=== PATIENT | female | born 1975 | race Caucasian/White ===

== ENCOUNTER → 2017-08-22 10:11 | Outpatient (CLI) | payer MEDICAID, SELFPAY ==
[2017-08-22 11:24] LABS: Hemoglobin A1c 5.7 % (4.2-6.3)
[2017-08-22 11:28] LABS: Erythrocyte Sedimentation Rate 24 mm/hr (0-20)
[2017-08-22 11:41] LABS: Rheumatoid Factor < 10.0 IU/mL (<15); Thyroid Stim Hormone (TSH) 4.13 uIU/mL (0.358-3.74); Vitamin B12 297 pg/mL (211-911)
[2017-08-23 16:10] LABS: Albumin, Ur 7.5 % (.); Alpha-1-Globulin, Ur 6.1 % (.); Alpha-2-Globulins, Ur 10.8 % (.); Beta Globulin, Ur 39.6 % (.); Cytoplasmic Ab (C-ANCA) <1:20 titer (Neg:<1:20); M-Spike, Ur % Not Observed % (Not Observed); SJOGREN'S Anti-SS-A test < 0.2 AI (0.0-0.9); SJOGREN'S Anti-SS-B test < 0.2 AI (0.0-0.9); Total Protein, Ur 13.7 mg/dL (Not Estab.)
[2017-08-24 09:47] LABS: Perinuclear Ab (P-ANCA) <1:20 titer (Neg:<1:20)
[2017-08-24 09:48] LABS: ANTINUCLEAR ANTIBODIES DIRECT Negative (Negative)
[2017-08-30 16:10] LABS: Albumin 3.3 g/dL (2.9-4.4); Alpha-1-Globulins 0.3 g/dL (0.0-0.4); Gamma Globulin 1.3 g/dL (0.4-1.8); Immunoglobulin A 347 mg/dL (87-352); Immunoglobulin G 1233 mg/dL (700-1600); Immunoglobulin M 119 mg/dL (26-217)
== END ==
PROVIDERS: Family Provider Family Medicine; PCP Family Medicine; Visit Provider Psychiatry & Neurology Neurology
DX: G62.9 Polyneuropathy, unspecified (principal)
CPT/HCPCS: 36415; 82607; 82784; 83036; 84165; 84166; 84443; 85652; 86038; 86235; 86256; 86334; 86335; 86431

== ENCOUNTER → 2017-09-04 10:33 | Outpatient (CLI) | payer MEDICAID, SELFPAY ==
--- NOTE | 2017-09-04 10:37 | MRI_ITS ---
STUDY: MRI BRAIN WITHOUT CONTRAST REASON FOR EXAM: Female, 42 years old. Increasing headache frequency and severity. Patient has history of migraine headaches. TECHNIQUE: Standardized multiplanar fat and water weighted pulse sequences were obtained. COMPARISON: CT of the head dated September 14, 2015. FINDINGS: Normal size of the ventricles and extra-axial spaces for the patient's age. Normal white matter tracts of the supratentorial brain. Normal T2* images of the brain without demonstrated susceptibility artifact. There is no demonstrated hemosiderin stain. There is no evidence for recent intracranial ischemia or other cause of cytotoxic edema on diffusion weighted imaging (DWI). Normal bilateral basal ganglia. Normal thalami. There is no extra-axial fluid accumulation. Normal flow voids within the major intracranial circulation suggesting patency by spin echo criteria. Normal sella turcica, pituitary gland, infundibular stalk, optic chiasm and hypothalamus. Normal tectal plate and pineal gland. Normal midbrain, christos and medulla. Normal cerebellum. Normal basal cisterns. Normal bilateral temporal bones. Normal bilateral internal auditory canals. No demonstrated orbital abnormality, within the constraints of a routine brain study. Normal visualized paranasal sinuses. Normal calvarium and skull base. Normal visualized soft tissue structures. Normal visualized upper cervical spine. MRI/Brain without Contrast IMPRESSION: Normal unenhanced MRI of the brain. Electronically Signed: Catie Rao MD at 12:57 EDT , Service support ,
[2017-09-04 12:31] LABS: Absolute Lymphocyte Count 2.74 X10^3/ul (0.83-4.51); Absolute Neutrophil Count 5.4 X10^3/uL (2.0-7.7); Basophil# 0.03 X10^3/uL; Basophil% 0.3 % (0-1); Eosinophil# 0.32 X10^3/uL; Eosinophils% 3.5 % (0-5); Hematocrit 39.6 % (37-47); Hemoglobin 12.7 g/dl (12.0-15.0); Lymphocyte # 2.74 X10^3/ul (4.0); Lymphocyte % 30.2 % (19-41); Mean Corp Hgb Conc 32.1 g/gl (32-36); Mean Corpuscular Hgb 30.2 pg (27.0-32.0); Mean Corpuscular Volume 94.1 fL (81-99); Mean Platelet Vol. 9.3 fl (6.2-12.0); Monocyte# 0.55 X10^3/uL; Monocyte% 6.1 % (0-10); Neutrophil # 5.41 X10^3/uL (2.7-7.7); Neutrophil % 59.8 % (47-70); Platelet Count 223 K/mm3 (150-450); RBC Distribution Width CV 13.4 % (11.6-14.6); RBC Distribution Width SD 45.8 fl (35.1-43.9); Red Blood Count 4.21 M/mm3 (4.2-5.4); White Blood Count 9.1 K/mm3 (4.4-11.0)
[2017-09-04 12:32] LABS: POSITIVE COUNT NO; POSITIVE DIFFERENTIAL NO; POSITIVE MORPHOLOGY NO
== END ==
PROVIDERS: Family Provider Family Medicine; PCP Family Medicine; Visit Provider Psychiatry & Neurology Neurology
DX: R51 Headache (principal); L40.0 Psoriasis vulgaris; Z79.899 Other long term (current) drug therapy
CPT/HCPCS: 36415; 70551; 85025

== ENCOUNTER → 2017-11-07 06:59 | Outpatient (CLI) | payer MEDICAID, SELFPAY ==
--- NOTE | 2017-11-07 10:54 | NEURO ---
NCS and/or EMG Patient Report Ordering Doctor: Chao Riley DATE OF SERVICE: 11/07/17 This is a bilateral upper extremity nerve conduction study and a right upper extremity EMG performed on this 42-year-old female with discolorations involving her hands as well as abnormal sensations in her hands involving all fingers worse on the right with no trigger. Bilateral upper extremity sensory and motor nerve conduction studies performed. There is mild prolongation of the right median motor distal latency with mild reduction of amplitude but preservation of conduction velocity. The median and ulnar F-wave latencies are symmetrically preserved. The median sensory amplitude is also mildly reduced on the right. The left median motor and sensory, and bilateral ulnar motor and sensory and radial sensory responses are normal. Right upper extremity needle electromyography is performed. Muscles evaluated included the first dorsal interosseous, abductor pollicis brevis, brachioradialis, biceps, triceps and deltoid muscles. All muscles demonstrated normal insertional activity with absence of pathologic spontaneous activity. Motor unit potential recruitment pattern and amplitude was normal in all muscles tested. Impression abnormal electrophysiologic study consistent with mild median neuropathy at the right wrist. This may not be clinically significant however, correlation is suggested.
== END ==
PROVIDERS: Family Provider Physician Assistant; PCP Physician Assistant; Visit Provider Psychiatry & Neurology Neurology
DX: R20.0 Anesthesia of skin (principal); R20.2 Paresthesia of skin; G62.9 Polyneuropathy, unspecified
CPT/HCPCS: 95886; 95912

== ENCOUNTER 2017-12-30 21:38 | Emergency (ER) | payer MEDICAID, SELFPAY ==
[2017-12-30 21:39] VITALS: BP 129/61; PULSE 68; RESP 14; TEMP 36.9; O2SAT 96; BMI 47.5
[2017-12-30] MEDS: DiphenhydrAMINE 50 MG/ML Syringe 25 MG IV (23:25)
[2017-12-30] MEDS: proCHLORPERazine 10 MG/2 ML Vial IV (23:25)
[2017-12-30] MEDS: MethylPREDNISolone 125 MG/2 ML Vial IV (23:25)
[2017-12-30] MEDS: 0.9% Normal Saline 1,000 ML 999 ML IV (23:25)
--- NOTE | 2017-12-30 23:54 | ED.VISSUMM ---
- ER Visit Summary Date of Service: 12/30/17 Chief Complaint: Headache History of Present Illness: The patient is a 42 F presenting for evaluation secondary to headache. Patient reports that she has had a migraine headache over the course last 4 days. She reports that it is consistent with prior headaches but has been lasting somewhat longer. She describes it as a waxing and waning throbbing type pain that is bitemporal and is worse with light and sounds. Patient denies any vomiting but does endorse some nausea. She denies any recent head injuries, fevers, neck stiffness, rashes. She denies any numbness or weakness. Patient is on amitriptyline and Topamax which do not seem to be preventing these are helping. Physical Examination: Vital signs: Within normal limits General: Well-nourished well-developed no acute distress Head: Normocephalic atraumatic, no temporal artery tenderness or vesicular rash noted. No sinus tenderness to percussion. Eyes: PERRLA, EOMI. Direct funduscopy shows no evidence of hemorrhage or papilledema. Neck: Supple, no lymphadenopathy, no JVD no meningismus. Negative Brudzinski, Kernig, jolt, and heel strike Cardiovascular: Heart regular rate and rhythm no murmurs Respiratory: Lung sounds clear to auscultation bilaterally no respiratory distress Abdomen: Soft, nontender Extremities: Nontender, no edema Skin: Normal color, no rash, no evidence of petechia Neuro: Alert and oriented ?4, cranial nerves II through XII intact, normal strength, sensation Test Results: None indicated Emergency Department Course and Treatment: Patient presented for evaluation secondary to headache. Patient was administered Compazine and Benadryl had repeat evaluation improvement at 2353. Patient wishes to go home and try and sleep it off at this point. Patient will follow up with primary care as needed. Disposition: Discharge Impression: 1. Migraine headache This note was generated with Step[employer] dictation software. It may contain incorrect words, spelling, and punctuation that were not noted in review of the chart prior to signing ED Disposition - Plan for ED Patient: Disposition: Home or Assisted Living Chief Complaint: Headache Diagnosis: Migraine Instructions: ED Headache Migraine Referrals: Raymundo Lovell PA [Primary Care Provider] - 5-7 Days
[2017-12-31 00:26] VITALS: BP 128/60; PULSE 78; RESP 16; O2SAT 98
== END 2017-12-31 00:28 | disposition home or self-care (01) ==
PROVIDERS: Emergency Provider Emergency Medicine; Family Provider Physician Assistant; PCP Physician Assistant
DX: G43.909 Migraine, unspecified, not intractable, without status migrainosus (principal); Z98.84 Bariatric surgery status
CPT/HCPCS: 96361; 96374; 96375; 99283; J7030; A4216

== ENCOUNTER → 2018-01-29 07:54 | Outpatient (CLI) | payer MEDICAID, SELFPAY ==
--- NOTE | 2018-01-29 10:31 | NEURO_ITS ---
NCS and/or EMG Patient Report Ordering Doctor: Chao Riley DATE OF SERVICE: 01/29/18 This is a bilateral lower extremity nerve conduction study and a right lower extremity EMG performed on this 42-year-old female with pain in her feet bilaterally described as pain in the balls of her feet, which is up to her mid calf and constant, intermittently and idiosyncratically she does have severe pain. She is healthy otherwise without diabetes or alcohol consumption however she does have a history of migraine for which she takes Cymbalta and Topamax. She states that the Cymbalta does attenuate her foot pain to some extent. Bilateral lower extremity sensory and motor nerve conduction studies are performed. The bilateral sural sensory responses are normal. The common peroneal motor and tibial motor distal latencies and conduction velocities are preserved however there is decreased common peroneal amplitude on the left side. Tibial H reflexes are normal. Right lower extremity needle electromyography is performed. Muscles evaluated included the extensor digitorum brevis, abductor halitosis, medial gastrocnemius , anterior tibialis, vastus medialis and vastus lateralis muscles. All muscles demonstrated normal insertional activity with absence of pathologic spontaneous activity. Motor unit potential recruitment pattern and amplitude was normal in all muscles tested. Impression: This is an essentially normal electrophysical X study of the bilateral lower extremities however symptoms are consistent with small fiber neuropathy which may not be evident on this testing modality.
== END ==
PROVIDERS: Family Provider Physician Assistant; PCP Physician Assistant; Visit Provider Psychiatry & Neurology Neurology
DX: G62.9 Polyneuropathy, unspecified (principal); R20.0 Anesthesia of skin; R20.2 Paresthesia of skin
CPT/HCPCS: 95886; 95910

== ENCOUNTER 2024-10-07 09:55 | Emergency (ER) | payer MEDICAID, SELFPAY ==
[2024-10-07 09:56] VITALS: BP 92/43; PULSE 122; RESP 18; TEMP 36.7; O2SAT 100; BMI 27.5
--- NOTE | 2024-10-07 10:16 | EX.ED.DYSGE1 ---
HPI History of Present Illness Chief Complaint: General Illness Informant: patient Narrative Narrative: 49-year-old female states she had a procedure to repair a perforated septum done couple weeks ago at an ear nose throat outside of this area in [place]. Since then she has been feeling miserable. She feels like there is a very large object in her septum not just a small piece of silicone which is what they put in, she feels like her eyes are watering acid and they burn, her ears feel plugged like she went up in altitude and she is having trouble hearing out of them, the right side is worse than the left and they are achy, she feels like her mouth is dry, she is having nasal pain now because she has developed sore crusty sores mostly in the right side of her nose that feels like a staph infection she has had in the past, and she is getting sinus headaches off and on. She denies any bleeding, she is on Eliquis. In the last 3 to 4 days she has been having burning dysuria and occasional small amounts of hematuria, some frequency and urgency. Feels like she has a UTI. Some bladder pain but no nausea, vomiting. No back pain. No fevers or chills. No syncope or other systemic symptoms. She has not called her ENT about the symptoms. [facility] Medical History (Updated 10/07/24 @ 11:[address] Gene Peterson MD) Neuropathy Migraines Pulmonary embolus Afib Home Medications ?Medication ?Instructions ?Recorded ?Last Taken ?Type hydroxyzine pamoate 25 mg capsule 25 mg PO TID PRN PRN Anxiety 10/20/16 12/01/16 History topiramate 100 mg tablet 150 mg PO DAILY 10/20/16 12/09/16 History omeprazole 20 mg capsule,delayed 20 mg PO DAILY 12/08/16 12/10/16 History release prochlorperazine maleate 10 mg 10 mg PO TID PRN PRN Nausea 12/08/16 12/04/16 History tablet (Compazine) acetaminophen 500 mg tablet 2 tab PO Q8H PRN Pain #1 TAB 12/11/16 Unknown Rx ibuprofen 200 mg tablet 2 - 3 mg (0.01 - 0.015 x 200 mg) 12/11/16 Unknown Rx PO Q6H PRN Pain #1 TAB oxycodone 5 mg tablet 5 mg PO Q6H PRN PRN Severe Pain 12/11/16 Unknown Rx () ##12 apixaban 5 mg tablet (Eliquis) 5 mg PO BID 12/18/16 Unknown History duloxetine 60 mg capsule,delayed 60 mg PO DAILY 12/18/16 Unknown History release clindamycin HCl 150 mg capsule 300 mg (2 x 150 mg) PO 4X/DAY #80 07/16/17 Unknown Rx caps cefdinir 300 mg capsule 300 mg PO BID #14 caps 10/07/24 Unknown Rx mupirocin 2 % topical ointment 1 applic topical BID PRN skin 10/07/24 Unknown Rx infection #15 grams Allergy/AdvReac Type Severity Reaction Status Date / Time fluoxetine HCl (From Prozac) Allergy Other Verified 10/07/24 10:02 tree nut Allergy Anaphylaxis Verified 10/07/24 10:02 acetaminophen (From Vicodin) AdvReac Other Verified 10/07/24 10:02 butalbital (From Fioricet) AdvReac Nausea Verified 10/07/24 10:02 caffeine (From Fioricet) AdvReac Nausea Verified 10/07/24 10:02 hydrocodone bitartrate (From AdvReac Other Verified 10/07/24 10:02 Vicodin) latex AdvReac Rash Verified 10/07/24 10:02 onion AdvReac Other Verified 10/07/24 10:02 Surgical History (Updated 10/07/24 @ 10:[address] Gene Peterson MD) H/O gastric bypass Social History Smoking Status: Former smoker ROS ROS ED Constitutional Constitutional ED: Denies chills or fever(s) Eyes Eyes: Denies change in vision or diplopia ENT ENT ED: Reports as per HPI, ear pain bilateral, nose pain and sinus pressure; Denies nasal discharge, rhinorrhea or sore throat Cardiovascular Cardiovascular: Denies chest pain or palpitations Respiratory/Chest Respiratory/Chest: Denies cough or dyspnea Gastrointestinal Gastrointestinal: Reports abdominal pain; Denies diarrhea, nausea or vomiting Genitourinary Genitourinary ED: Reports dysuria, hematuria and urinary frequency Musculoskeletal Musculoskeletal: Denies back pain or neck pain Integumentary Denies abscess or rash Neurologic Neurologic: Denies headache(s), paresthesias or weakness Psychiatric Psychiatric: Denies suicidal thoughts EXAM Physical Exam Const Vital Signs: 10/07/24 09:56 10/07/24 11:41 10/07/24 11:42 Temperature 98.1 F 98.1 F Temperature Source Oral Pulse Rate 122 H 77 Respiratory Rate 18 16 Blood Pressure 92/43 L 120/57 L 120/57 L Blood Pressure Mean 59 78 78 Pulse Ox 100 100 100 Oxygen Delivery Method Room Air Room Air Positive well nourished and well developed Constitutional Narrative: Well-appearing General Appearance ED: well developed and NAD HEENT Reports moist mucous membranes HEENT Narrative: Probable effusion bilateral TMs, no perforation, slightly erythematous/injected right TM. EAC normal bilaterally. No periauricular lymphadenopathy. I do see a white silicone foreign body in the septum of the nose, she has some crusty yellow dried discharge around the's of the right naris. There is no active discharge. Nasal turbinates seem edematous, so exam is very limited and is also limited by pain and withdrawal by the patient. No significant sinus tenderness. No dysphonia. Posterior pharynx is normal. No thrush. normocephalic and atraumatic Eyes PERRL and EOMs intact bilaterally Neck full ROM, no lymphadenopathy and supple Resp normal respiratory effort GI non-distended GI Narrative: Mild suprapubic tenderness no guarding or rebound Auscultation: normoactive bowel sounds Palpation: soft Back/Spine no CVA tenderness General Back: other FROM Extremity normal to inspection General Extremety ED: Negative for edema, pulses abnormal or tenderness General Extremity: Negative for edema or pulses abnormal Neuro oriented x3, CN's II-XII intact bilaterally, no sensory deficits noted and gait normal Sensorium / Orientation: awake and alert Motor Exam: strength 5/5 throughout Psych Mood & Affect: anxious Skin no rashes or lesions noted and no wounds MDM MDM MDM Narrative Medical decision making narrative: This patient is very well-appearing. She probably has bilateral middle ear effusions, she may have an early right otitis media, and she may have what appears to be a superficial staph infection around the right naris which I think can be treated topically with mupirocin. Her urine is positive for infection, in order to cover her ENT infection and urine, I am going to put her on cefdinir. I am advising her to follow-up with her front office director who did her surgery/procedure as soon as possible since she just had a procedure. Of note, her initial vital signs were noted to be 92/43 and a pulse of 122. Patient looks very well, and so I had staff repeat her vital signs several times, and both times her pulse was in the 70s and blood pressure 120/57. I do not think she is septic. Lab Data Attestation: I reviewed the patient's lab results. Labs: Laboratory Results - last 24 hr 10/07/24 10:39 Urine Color Yellow Urine Clarity Sl. Cloudy Urine pH 5.0 Ur Specific Russell 1.020 Urine Protein 500 H Urine Glucose (UA) Normal Urine Ketones 5 H Urine Occult Blood 250 H Urine Nitrite Positive H Urine Bilirubin 3 H Urine Urobilinogen 1 H Ur Leukocyte Esterase 500 H Urine RBC 10-25 SEEN Urine WBC 25-50 SEEN Ur Squamous Epith Cells 0 SEEN Calcium Oxalate Crystal 1+ Urine Bacteria 2+ Hyaline Casts 0-5 SEEN Urine Mucus 1+ Discharge Plan Triage Chief Complaint: General Illness ED Provider: Gene Peterson Dx/Rx/DC Orders Clinical Impression: Acute otitis media, right, Staphylococcus infection of nose, Acute hemorrhagic cystitis Instructions: UTIs Prescriptions: New mupirocin 2 % ointment 1 applic topical BID PRN (Reason: skin infection) Qty: 15 0RF cefdinir 300 mg capsule 300 mg PO BID Qty: 14 0RF No Action topiramate 100 MG tablet 150 mg PO DAILY Patient Comments: MIGRAINES hydroxyzine pamoate 25 MG capsule 25 mg PO TID PRN PRN (Reason: Anxiety) Patient Comments: ITCHING prochlorperazine maleate [Compazine] 10 MG tablet 10 mg PO TID PRN PRN (Reason: Nausea) Patient Comments: pt states she takes for nausea or migranes omeprazole 20 MG capsule 20 mg PO DAILY Patient Comments: ACID REFLUX ibuprofen 200 MG tablet 2 - 3 mg PO Q6H PRN (Reason: Pain) Qty: 1 0RF Patient Comments: pain Rx Instructions: up to 1200 mg/day acetaminophen 500 MG tablet 2 tab PO Q8H PRN (Reason: Pain) Qty: 1 0RF oxycodone 5 MG tablet 5 mg PO Q6H PRN PRN (Reason: Severe Pain (6-10/10)) Qty: 12 0RF Patient Comments: pain duloxetine 60 MG capsule 60 mg PO DAILY apixaban [Eliquis] 5 MG tablet 5 mg PO BID Patient Comments: BLOOD THINNER clindamycin HCl 150 MG capsule 300 mg PO 4X/DAY Qty: 80 0RF Referrals: your ENT [Other] - As soon as possible Raymundo Lovell PA [Med Staff - Adv Practice Prof] - Print Language: Thai Disposition Disposition: Home, Self Care Discharge Date/Time: 10/07/24 11:47
[2024-10-07 10:45] LABS: Squamous Epithelial Cells - UA 0 SEEN /hpf (5-10)
[2024-10-07 10:59] LABS: Color, Urine Yellow (Yellow); Glucose, Dipstick Normal (Normal); Ketone-Dipstick 5 mg/dl (Negative); Leukocyte Esterase-Dipstick 500 /ul (Negative); Nitrite-Dipstick Positive (Negative); Occult Blood-Urine 250 /ul (Negative); Protein-Dipstick 500 mg/dl (Negative); Urine Clarity Sl. Cloudy (Clear); Urine Urobilinogen 1 mg/dl (Normal)
[2024-10-07 11:00] LABS: Urine Bilirubin Dipstick 3 mg/dL (Negative)
[2024-10-07 11:08] LABS: Bacteria 2+ /hpf (None Seen); Calcium Oxalate Crystals Ur 1+ /hpf (<or=2+); Mucous, Urine 1+ /hpf (<or=2+)
[2024-10-07 11:09] LABS: Hyaline Cast 0-5 SEEN /lpf (0-5); Red Blood Cells-Urine 10-25 SEEN /hpf (0-5); White Blood Cells 25-50 SEEN /hpf (0-5)
[2024-10-07 11:41] VITALS: BP 120/57; PULSE 77; RESP 16; TEMP 36.7; O2SAT 100
[2024-10-07 11:42] VITALS: BP 120/57; O2SAT 100
== END 2024-10-07 11:47 | disposition home or self-care (01) ==
PROVIDERS: Emergency Provider Emergency Medicine; Visit Provider Emergency Medicine
DX: J32.9 Chronic sinusitis, unspecified (principal); H66.91 Otitis media, unspecified, right ear; Z87.891 Personal history of nicotine dependence; N30.01 Acute cystitis with hematuria; B95.8 Unspecified staphylococcus as the cause of diseases classified elsewhere; Z79.01 Long term (current) use of anticoagulants
CPT/HCPCS: 81001; 87086; 87088; 99282

== ENCOUNTER → 2025-03-06 | Outpatient (CLI) | payer MEDICAID, SELFPAY ==
[2025-03-06 17:15] LABS: Hematocrit 37.0 % (37-47); Hemoglobin 11.9 g/dL (12.0-15.0); Immature Granulocytes Count 0.020 X10^3/uL (0.0-0.0); Mean Corp Hgb Conc 32.2 g/dL (32-36); Mean Corpuscular Volume 86.2 fL (81-99); Mean Platelet Vol. 9.6 fl (6.2-12.0); NRBC Flagged by Analyzer 0 % (0-5); Platelet Count 321 K/mm3 (150-450); RBC Distribution Width CV 15.5 % (11.6-14.6); RBC Distribution Width SD 48.6 fl (35.1-43.9); Red Blood Count 4.29 M/mm3 (4.2-5.4); White Blood Count 7.4 K/mm3 (4.4-11.0)
[2025-03-09 15:08] LABS: Angiotensin Convert Enzyme 77 U/L (14-82); Anti-Chromatin <0.2 AI (0.0-0.9); Anti-Jo <0.2 AI (0.0-0.9); Anti-dsDNA Ab 1 IU/mL (0-9); Cytoplasmic Ab (C-ANCA) <1:20 titer (Neg:<1:20); Perinuclear Ab (P-ANCA) <1:20 titer (Neg:<1:20); SJOGREN'S Anti-SS-A test < 0.2 AI (0.0-0.9); SJOGREN'S Anti-SS-B test < 0.2 AI (0.0-0.9)
== END | disposition home or self-care (01) ==
DX: J34.89 Other specified disorders of nose and nasal sinuses (principal)
CPT/HCPCS: 36415; 82164; 85025; 85652; 86037; 86225; 86235; 86431

== ENCOUNTER 2025-03-17 17:25 | Emergency (ER) | payer MEDICAID, SELFPAY ==
[2025-03-17 17:25] VITALS: BP 139/103; PULSE 75; RESP 14; TEMP 36.1; O2SAT 98; BMI 24.5
[2025-03-17] MEDS: Tetracaine 0.5% Ophthalmic Bottle 1 DRP OPHTHALMIC (18:33)
--- OUTSIDE RECORDS SUMMARY | 2025-03-17 19:02 | XMS RPT_ITS | CCD ---
Author Organization [facility] Care Team Providers Care Importer Exporter Name Role Phone BERTA JAYDE A Unavailable Unavailable LORIAUER JAYDE A Unavailable Unavailable Ivanauskas, Saulius Unavailable Unavailable Ivanauskas, Saulius Unavailable Unavailable Tee Ramirez Unavailable Unavailable BRITTANY SOFTWARE QA SYSTEM SPECIALIST, OLLIE Unavailable Unavailable BRITTANY SOFTWARE QA SYSTEM SPECIALIST, OLLIE Unavailable Unavailable Tee Ramirez Unavailable Unavailable Juan Carpenter Unavailable Unavailable Rocky Soto Unavailable Unavailable Rocky Soto Unavailable Unavailable Rocky Soto Unavailable Unavailable Rocky Soto Unavailable Unavailable Juan Carpenter Unavailable Unavailable Marialuisa Hale Primary Care Provider Habjessica, Ahmed A Unavailable Nina Culver Unavailable Lianne Copeland Unavailable FrederickkeeganDawsonshelby Unavailable Tabithaib, Ahmed A Unavailable Nina Culver Unavailable Lianne Copeland Unavailable Rocky Soto Unavailable Unavailable Mastriano, Brunilda Unavailable Unavailable Unavailable Primary Care Provider Unavailabl e Mastriano, Brunilda Unavailable Unavailable Rocky Soto Unavailable Unavailable Marialuisa Hale NP Primary Care Provider Juan Carpenter Primary Care Provider PETER, DR WILLIAM Attending Unavailable PETER, DR WILLIAM Consulting Unavailable PETER, DR WILLIAM Admitting Unavailable NONE, NONE Primary Care Unavailable NONE, NONE Consulting Unavailable Juan Carpenter Primary Care Provider [phone] [place] DO, Bessie E Unavailable Dr. Janay Escobedo Attending Vicky steen PCP, Pt States None Referring Unavailable Brittany, Ms. Rocky Jaffe Attending Vicky steen UNKNOWN, UNKNOWN Referring Unavailable UNKNOWN, UNKNOWN Referring Unavailable Brittany, Ms. Rocky Jaffe Attending Teresa Haas Unavailable Unavailable MISC, PHYSICIAN Attending Unavailable MISC, PHYSICIAN Attending Unavailable AGAPITO VILLEDA M.D. Consulting Unavailabl e RICHCREEK, BESSIE E Attending Unavailab le MISC, PHYSICIAN Attending Unavailable MISC, PHYSICIAN Attending Unavailable MISC, PHYSICIAN Attending Unavailable [place] DO, Bessie E Primary Care Provider Juan Carpenter Primary Care Provider JUAN CARPENTER Primary Care Unavailable CHICHI ROBERTSON Attending Unavailable JUAN CARPENTER P Primary Care Unavailable TANIKA GONZALEZ Attending Unavailable ROCKY SOTO Referring Unavailable JUAN CARPENTER Primary Care Unavailable [place] DO, Bessie E Primary Care Provider ROCKY SOTO Attending Unavailable RICHCREEK, BESSIE E Primary Care Unavailab Dr. Gene Escalante MD Emergency Provider [place] DO, Bessie George Unavailable JACOBO GOULD Attending Unavailable JUAN CARPENTER P Primary Care Unavailable JACOBO GOULD Attending Unavailable JUAN CARPENTER Primary Care Unavailable RICHCREEK, BESSIE GEORGE Primary Care Unav ailable RICHJACLYNEK, BESSIE GEORGE Primary Care Unav ailable AGAPITO PHILLIP Attending Unavailable JUAN CARPENTER P Primary Care Unavailable JACOBO GOULD Attending Unavailable NATASHA CASTELAN Attending Unavailable MARIALUISA HALE Primary Care Unavailable RICHCREEK, BESSIE E Referring Unavailab FRAN DowningH Attending Unavailable MARIALUISA HALE Primary Care Unavailable FATUMA LOWERY Attending Unavailable MARIALUISA HALE Primary Care Unavailable Juan Beaver Primary Care Unavailable Gene Peterson Attending Unavailable SARIDASERAS, OSEI Attending Unavailable JUSTICES, OSEI Primary Care Unavailable RICHCREEK, BESSIE Primary Care Unavailable CURIEL, SARAH Attending Unavailable CURIEL, SARAH Referring Unavailable FISH, CLARISSA A Attending Unavailable RICHCREEK, BESSIE Primary Care Unavailable FISH, CLARISSA A Attending Unavailable RICHCREEK, BESSIE Primary Care Unavailable RICHCREEK, BESSIE Attending Unavailable RICHCREEK, BESSIE Referring Unavailable RICHCREEK, BESSIE Primary Care Unavailable FISH, CLARISSA A Attending Unavailable RICHCREEK, BESSIE Primary Care Unavailable RICHCREEK, BESSIE Attending Unavailable RICHCREEK, BESSIE Primary Care Unavailable RICHCREEK, BESSIE Attending Unavailable RICHCREEK, BESSIE Referring Unavailable RICHCREEK, BESSIE Primary Care Unavailable FISH, CLARISSA A Attending Unavailable RICHCREEK, BESSIE Referring Unavailable RICHCREEK, BESSIE Primary Care Unavailable RICHCREEK, BESSIE Attending Unavailable RICHCREEK, BESSIE Referring Unavailable RICHCREEK, BESSIE Primary Care Unavailable Allergies Allergy Classification Reported Allergen(s) Allergy Type Date of Onset Reaction(s) Facility (20 sources) cephalexin; Translations: [CEPHALEXIN] Drug Allergy 07-21-19 Nausea And Vomiting, Vomiting [facility] Repository (19 sources) Hazelnut; Translations: [HAZELNUT] Propensity to adverse reactions to drug (disorder) 11-14-19 Anaphylaxis [facility] Repository (20 sources) Latex; Translations: [LATEX] Propensity to adverse reactions to drug (disorder) 02-16-20 Itching, Other: See Comments [facility] Repository (20 sources) onion extract; Translations: [ONION] Drug Allergy 02-16-20 Other (See Comments), Hives, Other: See Comments [facility] Repository (19 sources) BUTALBITAL-ACETAMI NOPHEN-CAFF; Translations: [BUTALBITAL-ACETAM INOPHEN-CAFF] Propensity to adverse reactions to drug (disorder) 08-24-19 Other: See Comments [facility] Repository (20 sources) MACADAMIA NUT OIL; Translations: [MACADAMIA NUT OIL] Propensity to adverse reactions to drug (disorder) 05-22-20 17 Anaphylaxis [facility] Repository (20 sources) HYDROCODONE-GUAIFE NESIN; Translations: [HYDROCODONE-GUAIF ENESIN] Propensity to adverse reactions to drug (disorder) 07-21-19 17 Other (See Comments), Mental Status Change [facility] Repository (1 source) acetaminophen / HYDROcodone; Translations: [[place]] Drug Allergy [facility] Repository (1 source) tree nut, unspecified; Translations: [Tree Nuts] Propensity to adverse reactions to drug (disorder) [facility] Repository (10 sources) Adhesive Tape; Translations: [adhesive tape] Propensity to adverse reactions to substance 04-24-20 Rash [facility] named [facility] (9 sources) Ketorolac Drug Allergy 03-10-20 19 Other (See Comments) Formerly named [facility] (11 sources) Nuts (not including peanuts) Propensity to adverse reactions to drug 07-04-19 Hives [facility] named [facility] (11 sources) Acetaminophen / butalbital / Caffeine Drug Allergy 02-01-20 [facility] (11 sources) Acetaminophen / HYDROcodone Drug Allergy 02-01-20 [facility] (11 sources) Cephalexin Drug Allergy 02-01-20 17 [facility] (1 source) Propensity to adverse reactions to drug 12-02-19 20 [facility] (1 source) Propensity to adverse reactions to drug 12-02-19 20 [facility] (1 source) Propensity to adverse reactions to drug 12-02-19 20 [facility] (1 source) Propensity to adverse reactions to drug 12-02-19 20 [facility] (1 source) Propensity to adverse reactions to drug 12-02-19 20 [facility] (1 source) Propensity to adverse reactions to drug 12-02-19 20 [facility] (1 source) Propensity to adverse reactions to drug 06-09-20 20 [facility] (1 source) Propensity to adverse reactions to drug 06-09-20 20 [facility] (1 source) Propensity to adverse reactions to drug 06-09-20 20 [facility] (1 source) Propensity to adverse reactions to drug 06-09-20 20 [facility] (1 source) Propensity to adverse reactions to drug 06-09-20 20 [facility] (1 source) Propensity to adverse reactions to drug 06-09-20 20 [facility] (1 source) Propensity to adverse reactions to drug 06-09-20 20 [facility] (1 source) Propensity to adverse reactions to drug 06-09-20 20 [facility] (1 source) Propensity to adverse reactions to drug 06-09-20 20 [facility] (1 source) Propensity to adverse reactions to drug 06-09-20 20 [facility] (1 source) Propensity to adverse reactions to drug 06-09-20 20 [facility] (1 source) Propensity to adverse reactions to drug 06-09-20 20 [facility] (20 sources) oxyCODONE; Translations: [OXYCODONE] Drug Allergy 03-20-20 18 Other (See Comments), Contraindicati on-[facility] Surgical [facility] (1 source) NSAIDs Drug allergy (disorder) [facility] Rep[facility] (1 source) peanut allergenic extract Drug Allergy [facility] (1 source) MISC-FOOD; Translations: [MISC-FOOD] Food allergy (disorder) [facility] Repository (15 sources) peanut; Translations: [PEANUTS] Food Allergy 09-16-19 23 Anaphylaxis [facility] (1 source) Propensity to adverse reactions to drug 12-02-19 [facility] (1 source) Propensity to adverse reactions to drug 12-02-19 [facility] (1 source) Propensity to adverse reactions to drug 12-02-19 [facility] (1 source) Propensity to adverse reactions to drug 12-02-19 [facility] (1 source) Acetaminophen Drug Allergy 10-08-19 [facility] Comment on above: HALLUCINATIONS (1 source) butalbital Drug Allergy 10-08-[address] [facility] (1 source) Caffeine Drug Allergy 10-08-[address] [facility] (2 sources) FLUoxetine; Translations: [fluoxetine HCl] Drug Allergy 10-08-19 [facility] Comment on above: UNRESPONSIVE (2 sources) HYDROcodone; Translations: [hydrocodone bitartrate] Drug Allergy 10-08-19 [facility] Comment on above: HALLUCINATIONS (3 sources) tree nut, unspecified; Translations: [tree nut] Allergy to substance 10-08-[address] [facility] (1 source) Acetaminophen Drug Allergy 10-08-[address] [facility] Repository (2 sources) butalbital Drug Allergy 10-08-[address] [facility] Repository (1 source) Caffeine Drug Allergy 10-08-[address] [facility] Repository (1 source) Banana Extract Drug Allergy 10-24-19 [facility] Repository (1 source) Parminder albicans allergenic extract Drug Allergy 10-24-19 [facility] Repository (1 source) [place] Oil; Translations: [CORN OIL] Drug Allergy 10-24-19 [facility] Repository (1 source) guaiFENesin Drug Allergy 10-24-19 [facility] Rep[facility] (1 source) HYDROcodone Drug Allergy 10-24-19 [facility] Repository (1 source) Ketorolac Drug Allergy 10-24-19 [facility] Repository (1 source) Morphine; Translations: [ROXANOL] Drug Allergy 10-24-19 [facility] Repository (1 source) Oats Drug allergy (disorder) 10-24-19 [facility] Repository (1 source) peanut allergenic extract Drug Allergy 10-24-19 [facility] Repository (1 source) Wheat bran; Translations: [WHEAT BRAN] Propensity to adverse reactions (disorder) 10-24-19 [facility] Repository (1 source) Nuts Other Than Peanuts; Translations: [Nuts Other Than Peanuts] Propensity to adverse reactions (disorder) 10-24-19 [facility] Repository Medications Current Medications Medication Drug Class(es) Dates Sig (Normalized) Sig (Original) acetaminophen 250 mg / aspirin 250 mg / caffeine 65 mg oral tablet (15 sources) Platelet Aggregation Inhibitor, Nonsteroidal Anti-inflammatory Drug, Central Nervous System Stimulant, Methylxanthine take 1 tablet by mouth once Aspirin-Acetamino phen-Caffeine 250-250-65 mg per tablet Take 1 tablet by mouth. Active aspirin-acetamin ophen-caffeine (Excedrin Migraine) 250-250-65 mg tablet Take 1 tablet by mouth. Active Comment on above: Take 1 tablet by lazaro th. acetylcysteine 600 mg oral capsule (11 sources) Antidote, Mucolytic, Antidote for Acetaminophen Overdose Start: 023 take 1 capsule by mouth in the morning, then take 2 capsules by mouth in the evening acetylcysteine 600 mg capsule capsule take 1 capsule by mouth IN THE MORNING and 2 capsules IN THE EVENING 06/23/2023 Active Start: 06-01-2020 [id number] Medicat ion acetylcysteine 600 mg capsule NAC 600 mg 06/01/2020 Active (Outside) albuterol 0.21 mg/ml inhalation solution (20 sources) beta2-Adrenergic Agonist Start: 12-02-2019 [id number] Medication albuterol sulfate albuterol sulfate 0.63 mg/3 mL 12/02/2019 Active (Outside) Start: 02-14-2017 take 2 puff(s) by in halation every four hours as needed for wheezing albuterol HFA (PROVENTIL HFA) 90 mcg/actuation inhaler Indications: Exercise-induced asthma (HCC) Inhale 2 Puffs as instructed every 4 hours as needed (for shortness of breath and wheezing.). 1 Inhaler 1 02/14/2017 Active Comment on above: Inhale 2 Puffs as in structed every 4 hours as needed (for shortness of breath and wheezing.). amitriptyline hydrochloride 50 mg oral tablet (20 sources) Tricyclic Antidepressant Start: 05-30-2018 amitriptyline (ELAVIL) 50 mg tablet 75 mg. 0 05/30/2018 Active Start: 05-30-2018 take 1 tablet by lazaro th at bedtime amitriptyline (Elavil) 50 mg tablet take 1 tablet by mouth at bedtime Oral for 30 05/30/2018 Active amitriptyline (E LAVIL) 75 MG tablet Take 100 mg by mouth nightly. 0 Active Comment on above: 75 mg. apixaban 5 mg oral tablet (2 sources) Factor Xa Inhibitor Start: 12-18-2016 take 1 tablet by mouth twice daily Apixaban (Eliquis) 5 MG tablet Active 5 mg PO TWICE A DAY December 18, 2016 11:00pm Start: 12-08-2016 End: 12-18-2016 take 2 tablets by mouth twice daily, then take 1 tablet by mouth twice daily Apixaban (Eliquis) 5 MG tablet Discontinued 10 mg PO TWICE A DAY 90 December 08, 2016 12:00am December 18, 2016 11:00pm Take 10 mg twice a day for 6 days then take 5 mg twice a day until you complete 3 months. Auvelity 45-105 mg tablet, IR and ER, biphasic (1 source) Start: 09-30-2024 take 1 tablet by mouth twice daily Auvelity 45-105 mg tablet, IR and ER, biphasic Take 1 tablet by mouth 2 times a day. DIRECTED 09/30/2024 Active benzoyl peroxide 50 mg/ml topical lotion (11 sources) Start: 03-10-2020 [id number] Medication benzoyl peroxide 5 % topical cleanser benzoyl peroxide 5 % topical cleanser 5 % 1 Application topically daily 03/10/2020 Active (Current) augmented betamethasone 0.0005 mg/mg topical ointment (20 sources) Corticosteroid Start: 05-06-2018 Aug Betamethasone Dipropionate (DIPROLENE) 0.05 % ointment apply to affected area twice a day as directed (AVOID FACE, GROIN, UNDERARMS) 0 05/24/2018 Active Comment on above: apply to affected ar ea twice a day as directed (AVOID FACE, GROIN, UNDERARMS) biotin 5 mg oral capsule (11 sources) Biotin (BIOTIN 5000) 5 MG CAPS Take 1 capsule by mouth. 0 Active calcium carbonate 1250 mg oral tablet (11 sources) Start: 03-28-2022 calcium carbonate (Oscal) 500 mg calcium (1,250 mg) tablet every 12 hours. 03/28/2022 Active Start: 12-02-2019 [id number] Medicat ion calcium carbonate 500 mg calcium (1,250 mg) tablet Calcium 500 500 mg calcium (1,250 mg) 12/02/2019 Active (Outside) Calcium Carbonate / Cholecalciferol (11 sources) Vitamin D take 1 tablet by mouth once daily Calcium carbonate-vitamin D 600-400 MG-UNIT per tablet Take 1 tablet by mouth daily. 0 Active take 1 tablet by mouth once piyush y Calcium carbonate-vitamin D 600-400 MG-UNIT per tablet Take 1 tablet by mouth daily. 0 Active cefdinir 300 mg oral capsule (1 source) Cephalosporin Antibacterial Start: 10-07-2024 take 1 capsule by mouth twice daily Cefdinir 300 mg capsule Active 300 mg PO TWICE A DAY October 07, 2024 12:00am cholecalciferol 400 unt oral tablet (11 sources) Vitamin D take 1 tablet by mouth once daily Cholecalciferol (VITAMIN D-3) 400 units TABS Take 400 Units by mouth daily. 0 Active DULoxetine 20 mg delayed release oral capsule (20 sources) Serotonin and Norepinephrine Reuptake Inhibitor Start: 08-17-2017 [id number] Medication duloxetine 20 mg capsule,delayed release Cymbalta 20 mg 06/01/2020 Active (Outside) Start: 01-18-2017 take 2 capsules by m outh once daily DULoxetine (CYMBALTA) 60 mg capsule Take 120 mg by mouth once daily. 5 01/18/2017 Active Start: 12-18-2016 take 1 capsule by mo uth once daily in the morning DULoxetine (Cymbalta) [address] capsule take 1 capsule by mouth every morning take with 60 milligram capsules Orally 01/18/2017 Active Comment on above: Take 1 capsule(s) ev abrahan day by oral route at bedtime. Take 120 mg by mouth once daily. 2 ml dupilumab 150 mg/ml prefilled syringe (7 sources) Interleukin-4 Receptor alpha Antagonist Start: 024 DUPIXENT SYRINGE 300 mg/2 mL injection 09/24/2023 Active 0.4 ml enoxaparin sodium 100 mg/ml prefilled syringe (8 sources) Low Molecular Weight Heparin Start: 018 inject 0.4 mL by subcutaneous injection twice daily enoxaparin (LOVENOX) 40 mg/0.4 mL syrg Inject 0.4 mL subcutaneously twice daily. (Inject entire contents of one(1) syringe) 24 mL 10/25/2017 Active Comment on above: Inject 0.4 mL subcut aneously twice daily. (Inject entire contents of one(1) syringe) 1 ml erenumab-aooe 70 mg/ml auto-injector (20 sources) Start: 018 AIMOVIG AUTOINJECTOR, 2 PACK, 70 mg/mL AutoInjector 06/05/2018 Active Erenumab-aooe (A IMOVIG 140 DOSE) 70 MG/ML SOAJ Inject 1 Application into the skin every 30 days. 0 Active escitalopram 10 mg oral tablet (9 sources) Serotonin Reuptake Inhibitor Start: 12-02-2019 [id number] Medication escitalopram 10 mg tablet Lexapro 10 mg 12/02/2019 Active (Outside) famotidine 20 mg oral tablet (20 sources) Histamine-2 Receptor Antagonist Start: 10-25-2017 End: 07-30-2019 take 1 tablet by mouth twice daily famotidine (PEPCID) 20 mg tablet Take 1 tablet by mouth twice daily. 60 tablet 6 10/25/2017 Active Comment on above: Take 1 tablet by [facility] twice daily. ferrous sulfate 325 mg delayed release oral tablet (20 sources) ferrous sulfate 325 mg (65 mg iron) EC tablet Take 325 mg by mouth. Active Comment on above: Take 325 mg by mouth . fluconazole 150 mg oral tablet (11 sources) Azole Antifungal Start: 09-13-2020 [id number] Medication fluconazole 150 mg tablet Diflucan 150 mg tablet 150 mg 1 Tablet by mouth as directed 09/13/2020 Active (Current) fluticasone propionate 0.05 mg/actuat metered dose nasal spray (4 sources) Corticosteroid Fluticasone propionate (FLONASE) 50 MCG/ACT nasal spray 1 spray by Nasal route daily. 0 Active folic acid 1 mg oral tablet (20 sources) Start: 09-29-2017 take 1 tablet by mouth once daily folic acid 1 mg tablet 1 tablet daily by mouth except day you take methotrexate. 5 03/01/2018 Active Comment on above: 1 tablet daily by [facility] except day you take methotrexate. 120 actuat formoterol fumarate 0.005 mg/actuat / mometasone furoate 0.2 mg/actuat metered dose inhaler (9 sources) Corticosteroid, beta2-Adrenergic Agonist Start: 12-02-2019 [id number] Medication mometasone-formoter ol HFA 200 mcg-5 mcg/actuation aerosol inhaler Dulera 200-5 mcg/actuation 12/02/2019 Active (Outside) gabapentin 100 mg oral capsule (8 sources) Anti-epileptic Agent Start: 03-14-2023 End: 12-31-2024 take 1 capsule by mouth three times daily gabapentin (NEURONTIN) 100 mg capsule Take 1 capsule by mouth three times a day. 270 capsule 3 01/01/2024 12/31/2024 Active Comment on above: Take 1 capsule by [facility] three times a day. Take 1 capsule by [facility] three times daily for 180 days. hydrocortisone 25 mg/ml topical cream (20 sources) Corticosteroid Start: 10-03-2024 hydrocortisone 2.5 % cream Indications: Psoriasis Thin coat to affected skin twice daily for 3-4 weeks as needed. 60 g 10/03/2024 Active Start: 03-01-2018 hydrocortisone 2.5 % cream apply twice a day topically to affected areas on face for 2-3 weeks, then weekends only. Repeat every few months for flares 6 03/01/2018 Active Start: 01-14-2018 End: 10-03-2024 hydrocortisone 2.5 % cream a pply twice a day topically to affected areas on face for 2-3 weeks, then weekends only. Repeat every few months for flares 03/01/2018 10/03/2024 Discontinued (Therapy completed) Comment on above: apply twice a day to pically to affected areas on face for 2-3 weeks, then weekends only. Repeat every few months for flares hydrOXYzine pamoate 25 mg oral capsule (20 sources) Antihistamine Start: 06-01-2020 [id number] Medication hydroxyzine HCl hydroxyzine HCl 25 mg/mL 06/01/2020 Active (Outside) Start: 10-20-2016 hydrOXYzine pa moate (VISTARIL) 25 mg capsule Take 25 mg by mouth. 10/20/2016 Active Start: 10-20-2016 hydrOXYzine pa moate (VISTARIL) 25 mg capsule 3 TIMES DAILY NEEDED PRN For Anxiety 10/20/2016 Active take 1 tablet by lazaro th every six hours as needed hydrOXYzine HCl (ATARAX) 25 mg tablet Take 25 mg by mouth four times daily as needed. Active take 1 tablet by lazaro th every six hours as needed hydrOXYzine HCL (Atarax) 25 mg tablet Take 1 tablet (25 mg) by mouth every 6 hours if needed. Active take 1 capsule by mo ut four times daily as needed hydrOXYzine (VISTARIL) 25 MG capsule Take 25 mg by mouth 4 times daily as needed for Itching. 0 Active Comment on above: Take 25 mg by mouth four times daily as needed. 3 TIMES DAILY NEE DED PRN For Anxiety Take 25 mg by mouth. ibuprofen 200 mg oral tablet (1 source) Nonsteroidal Anti-inflammatory Drug Start: 12-11-2016 Ibuprofen 200 MG tablet Active 2 - 3 mg PO EVERY 6 HOURS as needed for Pain December 11, 2016 12:03pm up to 1200 mg/day ketoconazole 20 mg/ml topical cream (20 sources) Azole Antifungal Start: 03-24-2022 ketoconazole (NIZOral) 2 % cream apply topically to CORNERS OF THE MOUTH twice a day UNTIL CLEAR External for 03/24/2022 Active Start: 01-31-2017 [id number] Medicat ion ketoconazole 2 % shampoo ketoconazole 2 % shampoo 2 % 1 Application topically every 3 days 09/23/2021 Active (Current) Ketoconazole 1 % sham Apply 1 application to affected area. Active Comment on above: Apply 1 application to affected area. meclizine hydrochloride 25 mg oral tablet (2 sources) Antiemetic meclizine (Antiv ert) 25 mg tablet once every 24 hours. Active methotrexate 2.5 mg oral tablet (20 sources) Folate Analog Metabolic Inhibitor Start: 08-27-2017 methotrexate 2.5 mg tablet Take 15 mg by mouth once each week. 0 08/27/2017 Active Start: 08-25-2017 take 1 tablet by lazaro th once daily [id number] Medication methotrexate sodium 2.5 mg tablet methotrexate sodium 2.5 mg tablet 2.5 mg 1 Tablet by mouth daily 08/25/2017 Prior History No Longer Active Comment on above: Take 15 mg by mouth once each week. metroNIDAZOLE 7.5 mg/ml topical cream (4 sources) Nitroimidazole Antimicrobial Start: 01-24-2022 metroNIDAZOLE (Metrocream) 0.75 % cream 1 Application every 12 hours. 01/24/2022 Active Start: 01-24-2022 [id number] Medicat ion metronidazole 0.75 % topical cream metronidazole 0.75 % topical cream 0.75 % 1 Application to affected area twice a day 01/24/2022 Prior History No Longer Active Multiple Vitamin (THERA VITAMIN) TABS tablet (11 sources) take 1 tablet by mouth once daily Multiple Vitamin (THERA VITAMIN) TABS tablet Take 1 tablet by mouth daily. 0 Active mupirocin 0.02 mg/mg topical ointment (14 sources) RNA Synthetase Inhibitor Antibacterial Start: 10-07-2024 Mupirocin 2 % ointment Active 1 NMA TOPICAL TWICE A DAY as needed for skin infection October 07, 2024 12:00am Start: 12-02-2019 [id number] Medicat ion mupirocin 2 % topical ointment mupirocin 2 % topical ointment 2 % 1 Application topically three times a day 09/22/2022 Prior History No Longer Active naproxen 500 mg oral tablet (18 sources) Nonsteroidal Anti-inflammatory Drug Start: 03-20-2018 take 1 tablet by mouth every twelve hours as needed naproxen (NAPROSYN) 500 mg tablet Take 500 mg by mouth twice daily as needed. 0 03/20/2018 Active Start: 03-20-2018 take 1 tablet by lazaro every twelve hours naproxen (Naprosyn) 500 mg tablet Take 1 tablet (500 mg) by mouth every 12 hours if needed. 03/20/2018 Active Comment on above: Take 500 mg by mouth twice daily as needed. nitroglycerin 0.4 mg sublingual tablet (1 source) Nitrate Vasodilator Start: 08-22-2019 nitroGLYCERIN (NITROSTAT) 0.4 MG SL tablet 0.4 mg nystatin 100 unt/mg topical ointment (18 sources) Polyene Antifungal Start: 01-22-2017 nystatin (MYCOSTATIN) ointment Apply 1 application to affected area twice daily. 1 Tube 2 01/22/2017 Active Comment on above: Apply 1 application to affected area twice daily. omeprazole 20 mg delayed release oral capsule (20 sources) Proton Pump Inhibitor Start: 08-17-2017 [id number] Medication omeprazole omeprazole 40 mg 12/02/2019 Discontinued Start: 12-08-2016 omeprazole (NH ILOSEC) 20 mg capsule 06/28/2022 Active omeprazole (PRIL OSEC) 40 mg capsule Take 1 capsule by mouth. Active take 20 mg by mouth once daily O MEPRAZOLE PO Take 20 mg by mouth daily. 0 Active Comment on above: Take 1 capsule by mo [facility]. ondansetron 8 mg oral tablet (20 sources) Serotonin-3 Receptor Antagonist Start: 3 take 1 tablet by mouth once daily for nausea ondansetron (Zofran) 8 mg tablet take 1 tablet by mouth once daily if needed for nausea Orally 08/11/2022 Active Start: 12-02-2019 [id number] Medicat ion ondansetron HCl 4 mg tablet Zofran 4 mg 12/02/2019 Active (Outside) Start: 08-22-2019 End: 08-22-2019 Ondansetron (ZOFRAN-ODT) disintegrating tablet 4 mg Start: 07-30-2019 End: 07-30-2019 ondansetron hcl (ZOFRAN) inj ection 4 mg Start: 10-25-2017 take 1 tablet by lazaro every eight hours as needed ondansetron orally disintegrating (ZOFRAN ODT) 4 mg disintegrating tablet Take 1 tablet by mouth every 8 hours as needed. 20 tablet 1 10/25/2017 Active Comment on above: Take 1 tablet by lazaro every 8 hours as needed. oxyCODONE hydrochloride 1 mg/ml oral solution (9 sources) Opioid Agonist Start: 10-25-2017 oxyCODONE (ROXICODONE) 5 mg/5 mL oral solution Indications: Post-operative pain 1 teaspoon(s) (5 mL) every six(6) hours as needed for pain, by mouth. Earliest Fill Date: 10/25/17 70 mL 10/25/2017 Active Start: 12-11-2016 take 1 tablet by lazaro th every six hours as needed for pain Oxycodone 5 MG tablet Active 5 mg PO EVERY 6 HOURS NEEDED as needed for Severe Pain () December 11, 2016 12:00am Comment on above: 1 teaspoon(s) (5 mL) every six(6) hours as needed for pain, by mouth. Earliest Fill Date: 10/25/17 permethrin 50 mg/ml topical cream (2 sources) Pyrethroid Start: 01-24-2022 [id number] Medication permethrin 5 % topical cream permethrin 5 % topical cream 5 % 1 Application to affected area at bedtime 01/24/2022 Active (Current) propranolol hydrochloride 10 mg oral tablet (15 sources) beta-Adrenergic Tyler Start: 08-04-2022 propranolol (INDERAL) 10 mg tablet 08/04/2022 Active rimegepant 75 mg disintegrating oral tablet (2 sources) Start: 08-01-2023 Nurtec ODT 75 mg tablet,disintegrating place 1 tablet on top of the tongue and ALLOW to dissolve as directed 08/01/2023 Active 72 hr scopolamine 0.0139 mg/hr transdermal system (16 sources) Anticholinergic Start: 10-25-2017 scopolamine (TRANSDERM-SCOP) 1 mg over 3 days Apply 1 Patch as directed every 72 hours. 3 Patch 10/25/2017 Active Comment on above: Apply 1 Patch as dir ected every 72 hours. 1 ml secukinumab 150 mg/ml auto-injector (20 sources) Interleukin-17A Antagonist Start: 09-12-2023 End: 09-11-2024 secukinumab (Cosentyx Pen, 2 Pens,) 150 mg/mL self-injector pen Indications: Psoriasis INJECT 300 (2 PENS) DIRECTED UNDER THE SKIN EVERY 4 WEEKS. 2 mL 11 09/12/2023 09/11/2024 Active Start: 08-25-2022 COSENTYX PEN, 2 PENS, 150 mg/mL 08/25/2022 Active Start: 09-15-2020 [id number] Medica tion secukinumab 150 mg/mL subcutaneous pen injector Cosentyx Pen 300 mg/2 Pens (150 mg/mL) subcutaneous 150 mg/mL 2 Pen Needle subcutaneously as directed 03/24/2022 Active (Current) SUMAtriptan 5 mg/actuat nasal spray (9 sources) Serotonin-1b and Serotonin-1d Receptor Agonist Start: 12-02-2019 [id number] Medication sumatriptan 5 mg/actuation nasal spray Imitrex 5 mg/actuation 12/02/2019 Active (Outside) tiZANidine 2 mg oral tablet (2 sources) Central alpha-2 Adrenergic Agonist take 1 tablet by mouth twice daily as needed tiZANidine (Zanaflex) 2 mg tablet 1/2-1 tablet as needed Orally 2 times a day as needed for 30 days Active topiramate 200 mg oral tablet (20 sources) Start: 03-01-2018 take 1 tablet by mouth once daily at bedtime topiramate (TOPAMAX) 200 mg tablet Take 200 mg by mouth daily at bedtime. 3 03/01/2018 Active Start: 03-01-2018 take 1 tablet by lazaro th twice daily topiramate (TOPAMAX) 200 mg tablet Take 200 mg by mouth twice daily. 3 03/01/2018 Active Start: 08-17-2017 [id number] Medicat ion topiramate topiramate 25 mg 08/17/2017 Active (Outside) Start: 02-20-2017 topiramate (TO PAMAX) 100 mg tablet Take 2 nigthly 02/20/2017 Active Start: 10-20-2016 Topiramate 100 MG tablet Active 150 mg PO DAILY October 20, 2016 12:00am take 1 tablet by lazaro th twice daily topiramate (TOPAMAX) 100 MG tablet Take 100 mg by mouth two times a day. 0 Active Comment on above: Take 2 nigthly Take 200 mg by mouth twice daily. Take 200 mg by mouth daily at bedtime. triamcinolone acetonide 1 mg/ml topical cream (20 sources) Corticosteroid Start: 10-04-2023 triamcinolone (Kenalog) 0.1 % cream Indications: Rash and other nonspecific skin eruption Twice daily to affected areas for 3-4 weeks, then weekends only. Repeat every few months for flares. 453 g 3 10/04/2023 Active Start: 06-08-2020 [id number] Medica tion triamcinolone acetonide 0.1 % topical cream triamcinolone acetonide 0.1 % topical cream 0.1 % 1 Application topically twice a day 06/08/2020 Active (Current) Start: 01-31-2017 triamcinolone (KENALOG) 0.1 % lotion APPLY TWICE A DAY TO SCALP NEEDED FOR ITCHING/REDNESS 0 05/24/2018 Active Comment on above: APPLY TWICE A DAY TO SCALP NEEDED FOR ITCHING/REDNESS ubrogepant 50 mg oral tablet (2 sources) Ubrelvy 50 mg ta blet once every 24 hours. Active vitamin b12 1 mg extended release oral tablet (20 sources) Vitamin B12 Start: 03-01-20 18 take 1 tablet by mouth once daily Cyanocobalamin 1,000 mcg TbER Take 1 tablet by mouth once daily. 4 03/01/2018 Active vitamin B-12 (CY ANOCOBALAMIN) 250 MCG tablet Take by mouth daily. 0 Active Comment on above: Take 1 tablet by lazaro once daily. Completed/Discontinued Medications Medication Drug Class(es) Dates Sig (Normalized) Sig (Original) acetaminophen 325 mg oral tablet (2 sources) Start: 08-22-2019 End: 08-22-2019 acetaminophen (TYLENOL) tablet 650 mg Start: 12-11-2016 Acetaminophen 500 MG tablet Active 2 {tbl} PO Q8H as needed for Pain December 11, 2016 12:00am 0.4 ml adalimumab 100 mg/ml prefilled syringe (20 sources) Tumor Necrosis Factor Tyler Start: 01-01-2020 [id number] Medication adalimumab 40 mg/0.4 mL subcutaneous syringe kit Humira(CF) 40 mg/0.4 mL subcutaneous syringe kit 40 mg/0.4 mL 1 Pen Needle subcutaneously weekly 01/01/2020 Discontinued Start: 12-02-2019 [id number] Medica tion adalimumab 40 mg/0.4 mL subcutaneous pen kit Humira(CF) Pen 40 mg/0.4 mL subcutaneous kit 40 mg/0.4 mL 1 Pen Needle as directed weekly 12/02/2019 Discontinued Start: 07-16-2018 [id number] Medica tion adalimumab 40 mg/0.4 mL subcutaneous syringe kit Humira 40 mg/0.4 mL subcutaneous syringe kit 40 mg/0.4 mL 1 Syringe subcutaneously as directed 07/16/2018 Discontinued Start: 06-04-2018 HUMIRA PEN 40 mg/0.8 mL pnkt 06/04/2018 Active Start: 05-06-2018 [id number] Medicat ion adalimumab 40 mg/0.8 mL subcutaneous syringe kit Humira 40 mg/0.8 mL 05/06/2018 Discontinued Adalimumab (HUMI RA) 40 MG/0.4ML PSKT Inject 1 Adjustable Dose Pre-filled Pen Syringe into the skin every other week. 0 Active aspirin 81 mg chewable tablet (2 sources) Platelet Aggregation Inhibitor, Nonsteroidal Anti-inflammatory Drug Start: 08-22-2019 End: 08-22-2019 aspirin chewable tablet 324 mg Start: 07-30-2019 End: 07-30-2019 Aspirin 325 MG tablet 325 mg azithromycin 600 mg oral tablet (9 sources) Macrolide Antimicrobial Start: 12-02-2019422507 Medication amitriptyline amitriptyline 150 mg 12/02/2019 Discontinued onabotulinumtoxina 100 unt injection (9 sources) Acetylcholine Release Inhibitor Start: 12-02-2019 [id number] Medication onabotulinumtoxinA 100 unit solution for injection Botox 100 unit 12/02/2019 Discontinued clindamycin 10 mg/ml topical lotion (12 sources) Lincosamide Antibacterial Start: 03-10-2020 [id number] Medication clindamycin 1 % lotion clindamycin 1 % lotion 1 % 1 Application topically twice a day 03/10/2020 Prior History No Longer Active Start: 07-16-2017 take 2 capsules by m out four times daily Clindamycin Hcl 150 MG capsule Active 300 mg PO 4 TIMES DAILY July 16, 2017 1:00am clobetasol propionate 0.0005 mg/mg topical ointment (11 sources) Corticosteroid Start: 06-08-2020 [id number] Medicat ion clobetasol 0.05 % topical ointment clobetasol 0.05 % topical ointment 0.05 % 1 Application topically twice a day 06/08/2020 Prior History No Longer Active fluocinonide 0.5 mg/ml topical cream (2 sources) Corticosteroid Start: 03-24-2022 [id number] Medicat ion fluocinonide 0.05 % topical solution fluocinonide 0.05 % topical solution 0.05 % 1 Application topically twice a day 03/24/2022 Prior History No Longer Active isosorbide mononitrate 20 mg oral tablet (9 sources) Nitrate Vasodilator Start: 12-02-2019 [id number] Med ication isosorbide mononitrate isosorbide mononitrate 20 mg 12/02/2019 Discontinued prochlorperazine 25 mg rectal suppository (20 sources) Phenothiazine Start: 08-17-2017 [id number] Medicat ion prochlorperazine prochlorperazine 25 mg 08/17/2017 Discontinued Start: 02-19-2017 take 1 tablet by lazaro th every eight hours as needed prochlorperazine (COMPAZINE) 10 mg tablet Take 1 tablet by mouth every 8 hours as needed. 60 tablet 4 02/19/2017 Active Start: 12-08-2016 take 1 tablet by lazaro th three times daily as needed for nausea Prochlorperazine Maleate (Compazine) 10 MG tablet Active 10 mg PO 3 TIMES DAILY NEEDED as needed for Nausea December 08, 2016 12:00am Comment on above: Take 1 tablet by lazaro th every 8 hours as needed. Radionuclide Tc-99m Sestamibi (Cardiolite) 10.8 millicurie (1 source) Start: 07-28-2019 End: 07-28-2019 Radionuclide Tc-99m Sestamibi (Cardiolite) 10.8 millicurie Radionuclide Tc-99m Sestamibi (Cardiolite) 33 millicurie (1 source) Start: 07-28-2019 End: 07-28-2019 Radionuclide Tc-99m Sestamibi (Cardiolite) 33 millicurie regadenoson (1 source) Adenosine Receptor Agonist Start: 07-28-2019 End: 07-28-2019 regadenoson (LEXISCAN) solution 0.4 mg 1000 ml sodium chloride 9 mg/ml injection (2 sources) Start: 07-30-2019 End: 07-30-2019 0.9% NaCl infusion Problems Active Problems Problem Classification Problem Date Documented Date Episodic/Chronic Allergic reactions (2 sources) Atopic neurodermatitis Onset: 09-22-2022 Chronic Anxiety disorders (16 sources) Generalized anxiety disorder; Translations: [Generalized anxiety disorder] Onset: 06-11-2017 06-11-2017 Chronic Cardiac dysrhythmias (1 source) Atrial fibrillation; Translations: [Unspecified atrial fibrillation] 10-07-2024 Chronic Comment on above: resolved since ablat ion Conditions associated with dizziness or vertigo (1 source) Vertigo; Translations: [Dizziness and giddiness] 09-15-2015 Episodic Diseases of mouth; excluding dental (4 sources) Diseases of lips Onset: 03-24-2022 Episodic Genitourinary symptoms and ill-defined conditions (1 source) Frequency of micturition; Translations: [Urinary frequency] Onset: 11-12-2024 Episodic Headache; including migraine (2 sources) Tension-type headache, unspecified, not intractable; Translations: [Migraine] Onset: 07-31-2023 10-07-2024 Chronic Menopausal disorders (1 source) Postmenopausal bleeding; Translations: [Postmenopausal bleeding] Chronic Mood disorders (16 sources) Recurrent major depressive episodes, moderate ; Translations: [Major depressive disorder, recurrent, moderate] Onset: 06-11-2017 06-11-2017 Chronic Mycoses (1 source) Tinea pedis; Translations: [Tinea pedis] 09-15-2015 Episodic Nonspecific chest pain (10 sources) Precordial pain; Translations: [Chest pain] Onset: 07-30-2019 07-30-2019 Episodic Osteoarthritis (11 sources) Degenerative joint disease involving multiple joints; Translations: [Primary generalized (osteo)arthritis] Onset: 08-16-2018 08-16-2018 Chronic Other aftercare (14 sources) Other terminologist (current) drug therapy; Translations: [On angiotensin receptor blockers (ARB)] Onset: 09-13-2020 Episodic Other aftercare (1 source) Long-term current use of drug therapy; Translations: [Other terminologist (current) drug therapy] 10-03-2024 Episodic Other infections; including parasitic (4 sources) Scabies Onset: 01-24-2022 Episodic Other inflammatory condition of skin (13 sources) Psoriasis; Translations: [Psoriasis, unspecified] Onset: 08-16-2018 08-16-2018 Chronic Other inflammatory condition of skin (20 sources) Psoriasis vulgaris; Translations: [Psoriasis vulgaris] Onset: 01-31-2017 Chronic Other inflammatory condition of skin (11 sources) Other psoriasis Onset: 09-13-2020 Chronic Other inflammatory condition of skin (4 sources) Rosacea, unspecified Onset: 01-24-2022 Chronic Other inflammatory condition of skin (2 sources) Psoriasis, unspecified; Translations: [Psoriasis, unspecified] Onset: 10-03-2024 Chronic Other nervous system disorders (7 sources) Neuropathy; Translations: [Polyneuropathy, unspecified] Onset: 03-14-2023 10-01-2023 Chronic Other nervous system disorders (1 source) Polyneuropathy, unspecified; Translations: [Neuropathy] Onset: 10-01-2023 Chronic Other nutritional; endocrine; and metabolic disorders (1 source) Morbid (severe) obesity due to excess calories; Translations: [Morbid (severe) obesity due to excess calories] Onset: 10-31-2017 Chronic Other screening for suspected conditions (not mental disorders or infectious disease) (1 source) Endometrium thickened; Translations: [Abnormal findings on diagnostic imaging of other specified body structures] Chronic Other screening for suspected conditions (not mental disorders or infectious disease) (18 sources) Electrocardiogram abnormal; Translations: [Cardiovascular stress test abnormal] Onset: 04-14-2019 04-14-2019 Episodic Other skin disorders (20 sources) Other specified follicular disorders; Translations: [Other specified follicular disorders] Onset: 03-10-2020 Episodic Other skin disorders (20 sources) Alopecia areata, unspecified; Translations: [Alopecia areata, unspecified] Onset: 01-31-2017 Episodic Other skin disorders (20 sources) Hidradenitis suppurativa; Translations: [Hidradenitis Suppurativa] Onset: 06-07-2020 Episodic Other skin disorders (4 sources) Onycholysis Onset: 03-24-2022 Episodic Other skin disorders (1 source) Eruption; Translations: [Rash and other nonspecific skin eruption] 10-04-2023 Episodic Other upper respiratory disease (1 source) Nasal infection; Translations: [Other specified disorders of nose and nasal sinuses] 10-07-2024 Episodic Other upper respiratory disease (1 source) Other specified disorders of nose and nasal sinuses; Translations: [Other specified disorders of nose and nasal sinuses] Onset: 03-06-2025 Episodic Other upper respiratory infections (3 sources) Chronic sinusitis, unspecified; Translations: [CHRONIC SINUSITIS UNSPECIFIED] Onset: 04-27-2022 Chronic Otitis media and related conditions (2 sources) Acute right otitis media; Translations: [Otitis media, unspecified, right ear] Onset: 12-17-2024 10-07-2024 Episodic Pulmonary heart disease (1 source) Pulmonary embolism; Translations: [Other pulmonary embolism without acute cor pulmonale] 10-07-2024 Episodic Spondylosis; intervertebral disc disorders; other back problems (1 source) Cervical spondylosis Onset: 11-23-2022 Chronic Spondylosis; intervertebral disc disorders; other back problems (12 sources) Neck pain; Translations: [Cervicalgia] Onset: 10-07-2024 10-07-2024 Episodic Unclassified (1 source) Patient encounter status; Translations: [Preoperative testing] Unclassified (16 sources) Transformed migraine; Translations: [Chronic migraine] Onset: 07-21-2016 07-21-2016 Urinary tract infections (1 source) Acute hemorrhagic cystitis; Translations: [Acute cystitis with hematuria] 10-07-2024 Episodic Past or Other Problems Problem Classification Problem Date Documented Da te Episodic/Chronic Allergic reactions (2 sources) Allergic contact dermatitis due to metals Onset: 03-24-2022 Episodic Headache; including migraine (20 sources) Chronic daily headache; Translations: [Chronic daily headache] Onset: 07-21-2016 07-21-2016 Episodic Other connective tissue disease (11 sources) Full thickness rotator cuff tear; Translations: [Complete rotator cuff tear or rupture of left shoulder, not specified as traumatic] Onset: 03-03-2019 03-03-2019 Episodic Other gastrointestinal disorders (16 sources) History of bariatric surgical procedure; Translations: [Bariatric surgery status] Onset: 11-05-2018 11-05-2018 Episodic Other nutritional; endocrine; and metabolic disorders (8 sources) Morbid obesity; Translations: [Morbid (severe) obesity due to excess calories] Onset: 07-21-2016 Resolved: 06-22-2018 06-22-2018 Chronic Other nutritional; endocrine; and metabolic disorders (5 sources) Body mass index 40+ - severely obese; Translations: [Morbid (severe) obesity due to excess calories] Onset: 11-02-2017 Resolved: 06-22-2018 06-22-2018 Chronic Results Test Name Value Interpretation Reference Range Facility [id number] 03-10-2025 [facility] [place] COMMENT Normal . [facility] Comment on above: Order Comment: [id number] RED TOP POUR OFF RMT Result Comment: Test Ordered: [id number] C1 Esterase Inhibitor, Serum C1 Esterase Inhibitor, Serum 51 [H ] mg/dL Reference Range: 21-39 Performed at: - [facility] [id number] Mirror Machine Feeder: Aris Norwood MD, Phone: [phone] Performed at: [facility] [id number] Mirror Machine Feeder: Tahir Hebert PhD, Phone: [phone] Performed By: #### L 3100.6900, L505.7010, L100.0100, L3300.1200, L3410.9992, L101.9900, L3100.5440 #### [facility] [address] [place], [place], [id number] CHLOE Comprehensive Panelon ANTI-DNA (DS)AB 1 IU/mL Normal 0-[address] [facility] Comment on above: Result Comment: Nega tive <5 Equivocal 5 - 9 Positive >9 Performed By: #### L 3100.6900, L505.7010, L100.0100, L3300.1200, L3410.9992, L101.9900, L3100.5440 #### [facility] [address] [place], [place], [id number] ANTI-SS-A < 0.2 Normal 0.0-0.[address] [facility] Comment on above: Performed By: #### L 3100.6900, L505.7010, L100.0100, L3300.1200, L3410.9992, L101.9900, L3100.5440 #### [facility] [address] [place], [place], [id number] ANTI-SS-B < 0.2 Normal 0.0-0.[address] [facility] Comment on above: Performed By: #### L 3100.6900, L505.7010, L100.0100, L3300.1200, L3410.9992, L101.9900, L3100.5440 #### [facility] [address] [place], [place], [id number] ANCAon 03-09-2025 Atypical pANCA <1:20 Normal Neg:<1:[address] [facility] Comment on above: Result Comment: The atypical pANCA pattern has been observed in a significant percentage of patients with ulcerative colitis, primary sclerosing cholangitis and autoimmune hepatitis. Performed By: #### L 3100.6900, L505.7010, L100.0100, L3300.1200, L3410.9992, L101.9900, L3100.5440 #### [facility] [address] [place], [place], [id number] Cytoplasmic Ab <1:20 Normal Neg:<1:[address] [facility] Comment on above: Performed By: #### L 3100.6900, L505.7010, L100.0100, L3300.1200, L3410.9992, L101.9900, L3100.5440 #### [facility] [address] [place], [place], [phone] ([phone]) Perinuclear Ab. <1:20 Normal Neg:<1:[address] [facility] Comment on above: Result Comment: The presence of positive fluorescence exhibiting P-ANCA or C-ANCA patterns alone is not specific for the diagnosis of Amador's Granulomatosis (WG) or microscopic polyangiitis. Decisions about treatment should not be based solely on ANCA IFA results. The International ANCA [employer] Consensus recommends follow up testing of positive sera with both NH- 3 and MPO-ANCA enzyme immunoassays. As many as 5% serum samples are positive only by EIA. Ref. AM J Clin Pathol 1999;111:507-513. Performed By: #### L 3100.6900, L505.7010, L100.0100, L3300.1200, L3410.9992, L101.9900, L3100.5440 #### [facility] [address] [place], [place], [id number] Angiotensin Convert Enzymeon 03-09-2025 ANGIOT-CONV.ENZ 77 U/L Normal 14-[address] [facility] Comment on above: Result Comment: Perf ormed at: - [facility] [address] [id number] [employer] Machine Feeder: Tahir Hebert PhD, Phone: [phone] Performed By: #### L 3100.6900, L505.7010, L100.0100, L3300.1200, L3410.9992, L101.9900, L3100.5440 #### [facility] [address] [place], [address] CBC W/Diff, Automatedon 02-23-2024 Absolute Lymph 1.63 X10 3/uL Normal 0.83-4.[address] [facility] Comment on above: Performed By: #### L 3100.6900, L505.7010, L100.0100, L3300.1200, L3410.9992, L101.9900, L3100.5440 #### [facility] [address] [place], [address] Absolute Neut 4.9 X10 3/uL Normal 2.0-7.[address] [facility] Comment on above: Performed By: #### L 3100.6900, L505.7010, L100.0100, L3300.1200, L3410.9992, L101.9900, L3100.5440 #### [facility] [address] [place], [address] Basophils/100 WBC (Bld) 0.8 % Normal 0-[address] [facility] Comment on above: Performed By: #### L 3100.6900, L505.7010, L100.0100, L3300.1200, L3410.9992, L101.9900, L3100.5440 #### [facility] [address] [place], [address] Eosinophils/100 WBC (Bld) 1.9 % Normal 0-[address] [facility] Comment on above: Performed By: #### L 3100.6900, L505.7010, L100.0100, L3300.1200, L3410.9992, L101.9900, L3100.5440 #### [facility] [address] [place], [address] Erythrocyte distribution width (RBC) [Ratio] 15.5 % High 11.6-14.[address] [facility] Comment on above: Performed By: #### L 3100.6900, L505.7010, L100.0100, L3300.1200, L3410.9992, L101.9900, L3100.5440 #### [facility] [address] [place], [address] Hematocrit (Bld) [Volume fraction] 37.0 % Normal 37-[address] [facility] Comment on above: Performed By: #### L 3100.6900, L505.7010, L100.0100, L3300.1200, L3410.9992, L101.9900, L3100.5440 #### [facility] [address] [place], [address] Hemoglobin (Bld) [Mass/Vol] 11.9 g/dL Low 12.0-15.[address] [facility] Comment on above: Performed By: #### L 3100.6900, L505.7010, L100.0100, L3300.1200, L3410.9992, L101.9900, L3100.5440 #### [facility] [address] [place], [address] IG% 0.300 Normal 0.0-0.[address] [facility] Comment on above: Result Comment: IG% - Immature Granulocytes (promyelocytes, myelocytes and metamyelocytes) > 1% indicates that a LEFT SHIFT is Present. Performed By: #### L 3100.6900, L505.7010, L100.0100, L3300.1200, L3410.9992, L101.9900, L3100.5440 #### [facility] [address] [place], [address] Lymphocytes/100 WBC (Bld) 22.2 % Normal 19-[address] [facility] Comment on above: Performed By: #### L 3100.6900, L505.7010, L100.0100, L3300.1200, L3410.9992, L101.9900, L3100.5440 #### [facility] [address] [place], [address] MCH (RBC) [Entitic mass] 27.7 pg Normal 27.0-32.[address] [facility] Comment on above: Performed By: #### L 3100.6900, L505.7010, L100.0100, L3300.1200, L3410.9992, L101.9900, L3100.5440 #### [facility] [address] [place], [address] MCHC (RBC) [Mass/Vol] 32.2 g/dL Normal 32-36 [facility] [facility] Comment on above: Performed By: #### L 3100.6900, L505.7010, L100.0100, L3300.1200, L3410.9992, L101.9900, L3100.5440 #### [facility] [address] [place], [address] MCV (RBC) [Entitic vol] 86.2 fL Normal 81-[address] [facility] Comment on above: Performed By: #### L 3100.6900, L505.7010, L100.0100, L3300.1200, L3410.9992, L101.9900, L3100.5440 #### [facility] [address] [place], [address] Monocytes/100 WBC (Bld) 8.2 % Normal 0-[address] [facility] Comment on above: Performed By: #### L 3100.6900, L505.7010, L100.0100, L3300.1200, L3410.9992, L101.9900, L3100.5440 #### [facility] [address] [place], [address] Neutrophils/100 WBC (Bld) 66.6 % Normal 47-[address] [facility] Comment on above: Performed By: #### L 3100.6900, L505.7010, L100.0100, L3300.1200, L3410.9992, L101.9900, L3100.5440 #### [facility] [address] [place], [address] Nucleated RBC (Bld) [#/Vol] 0 10*3/uL Normal 0-[address] [facility] Comment on above: Performed By: #### L 3100.6900, L505.7010, L100.0100, L3300.1200, L3410.9992, L101.9900, L3100.5440 #### [facility] [address] [place], [address] Platelet mean volume (Bld) [Entitic vol] 9.6 fL Normal 6.2-12.[address] [facility] Comment on above: Performed By: #### L 3100.6900, L505.7010, L100.0100, L3300.1200, L3410.9992, L101.9900, L3100.5440 #### [facility] [address] [place], [address] Platelets (Bld) [#/Vol] 321 10*3/uL Normal 150-[address] [facility] Comment on above: Performed By: #### L 3100.6900, L505.7010, L100.0100, L3300.1200, L3410.9992, L101.9900, L3100.5440 #### [facility] [address] [place], [address] RBC (Bld) [#/Vol] 4.29 10*6/uL Normal 4.2-5.4 [facility] Comment on above: Performed By: #### L 3100.6900, L505.7010, L100.0100, L3300.1200, L3410.9992, L101.9900, L3100.5440 #### [facility] [address] [place], [place], [id number] RDW SD 48.6 fl High 35.1-43.[address] [facility] Comment on above: Performed By: #### L 3100.6900, L505.7010, L100.0100, L3300.1200, L3410.9992, L101.9900, L3100.5440 #### [facility] [address] [place], [place], [id number] WBC (Bld) [#/Vol] 7.4 10*3/uL Normal 4.4-11.0 [facility] Comment on above: Performed By: #### L 3100.6900, L505.7010, L100.0100, L3300.1200, L3410.9992, L101.9900, L3100.5440 #### [facility] [address] [place], [place], [id number] Erythrocyte Sed Rateon 03-06 SED RATE 33 mm/hr High 0-[address] [facility] Comment on above: Performed By: #### L 3100.6900, L505.7010, L100.0100, L3300.1200, L3410.9992, L101.9900, L3100.5440 #### [facility] [address] [place], [place], [id number] Rheumatoid Factoron 03-06-20 25 RHEUMATOID FAC < 10.0 Normal <[address] [facility] Comment on above: Performed By: #### L 3100.6900, L505.7010, L100.0100, L3300.1200, L3410.9992, L101.9900, L3100.5440 #### [facility] [address] [place], [place], [id number] CURINon 12-18-2024 AISSATOU Patient: NIVIA HERMOSILLO [id number] Location: [facility] Aount: [id number] : 1975 Age: 49 Sex F Lab NumbEr [id number] Requested by: REAGANBESSIE Admitdate: 12/18/24 Source: UR Collected: 12/18/24 16:58 Site: Received : 12/18/24 16:58 Culture, Urine FINAL 12/21/24 10:42 12/20/24 AEROBIC CULTURE RESULTS: #1: HEAVY GNB 12/21/24 AEROBIC CULTURE RESULTS: #2: HEAVY GPC 12/20/24 COLONY COUNT: >100,000 CFU/ml Organism 01 Escherichia coli Organism 02 Enterococcus faecalis Combination therapy of penicillin or ampicillin, plus an aminoglycoside, is usually indicated for serious enterococcal infections. Organism E. coli E. faecalis ANTIBIOTICS MAILE Interp MAILE Interp Amp/Sulbactam <8/4 S Ampicillin <8 S <2 S Aztreonam <4 S Cefazolin <2 S Cefepime <2 S Ceftazidime <1 S Ceftriaxone <1 S Ciprofloxacin <0.25 S <1 S Ertapenem <0.5 S Gentamicin <2 S Levofloxacin <0.5 S <1 S Linezolid <2 S Nitrofurantoin <32 S <32 S Penicillin 2 S Piperacillin/Gene <8 S Tetracycline >8 R Tobramycin <2 S Trimeth/Sulfa <2/38 S Vancomycin 1 S D1 -----DRUG COMMENTS D1: Streptomycin Synergy Screen S Gentamicin Synergy Screen S S=Sensitive I=Intermediate R=Resistant Normal [facility] Comment on above: Performed By: #### M IC2 #### [place] [id number] BACTERIAL VAGINOSIS NAATon 0 - Lactobacillus crispatus+gasseri+samina senii + Gardnerella vaginalis + Atopobium vaginae rRNA NICOL+probe Ql (Vag fld) Not detected Normal Not detected [facility] Comment on above: Order Comment: Speci men Type: SWAB Ordering Facility: [facility] Address: [address] [place] [address] Performed By: #### C VTV, BVAMP #### [facility] CLIA [id number] [address] [place] [address] [place] Bacteria Ur Culton Bacteria identified Cx Nom (U) ORGANISM ID: 1 10,000 -<50,000 CFU/ml Mixed microbiota No further workup. Mixed microbiota can be due to???urine???contamination with skin bacteria at time of collection or presence of a long-term urinary catheter. If a new culture is needed, please consider re-education of the patient on proper midstream co llection technique or straight catheterization for???urine???collection. Normal [facility] Comment on above: Performed By: #### C VTV, BVAMP #### [facility] CLIA [id number] [address] [place] [address] [place] PARMINDER/TRICHOMONAS NAATon 0 11-12-2024 C. glabrata RNA NICOL+probe Ql (Vag fld) Not detected Normal Not detected [facility] Comment on above: Order Comment: Speci men Type: SWAB Ordering Facility: [facility] Address: [address] [place] [address] Performed By: #### C VTV, BVAMP #### [facility] CLIA [id number] [address] [place] [address] [place] Parminder sp DNA NICOL+probe Ql (Vag fld) Not detected Normal Not detected [facility] Comment on above: Order Comment: Speci men Type: SWAB Ordering Facility: [facility] Address: [address] [place] [address] Result Comment: The Parminder species group target includes C. albicans, C. tropicalis, C. parapsilosis, and C. dubliniensis. Performed By: #### C VTV, BVAMP #### [facility] CLIA [id number] [address] [place] [address] [place] T. vaginalis DNA NICOL+probe Ql (Unsp spec) Not detected Normal Not detected [facility] Comment on above: Order Comment: Speci men Type: SWAB Ordering Facility: [facility] Address: [address] [place] [address] Performed By: #### C VTV, BVAMP #### [facility] CLIA [id number] [address] [place] [address] [place] CBC W Auto Differential pane l (Bld)on 11-12-2024 Basophils (Bld) [#/Vol] 0.07 10*3/uL Normal <0.11 [facility] Comment on above: Order Comment: Speci men Type: SWAB Ordering Facility: [facility] Address: [address] [place] [address] Performed By: #### C VTV, BVAMP #### [facility] CLIA [id number] [address] [place] [address] [place] Basophils/100 WBC (Bld) 0.8 % Normal [facility] Comment on above: Order Comment: Speci men Type: SWAB Ordering Facility: [facility] Address: [address] [place] [address] Performed By: #### C VTV, BVAMP #### [facility] CLIA [id number] [address] [place] [address] [place] Differential cell count method Nom (Bld) Auto Normal [facility] Comment on above: Order Comment: Speci men Type: SWAB Ordering Facility: [facility] Address: [address] [place] [address] Performed By: #### C VTV, BVAMP #### [facility] CLIA [id number] [address] [place] [address] [place] Eosinophils (Bld) [#/Vol] 0.28 10*3/uL Normal <0.46 [facility] Comment on above: Order Comment: Speci men Type: SWAB Ordering Facility: [facility] Address: [address] [place] [address] Performed By: #### C VTV, BVAMP #### [facility] CLIA [id number] [address] [place] [address] [place] Eosinophils/100 WBC (Bld) 3.3 % Normal [facility] Comment on above: Order Comment: Speci men Type: SWAB Ordering Facility: [facility] Address: [address] [place] [address] Performed By: #### C VTV, BVAMP #### [facility] CLIA [id number] [address] [place] [address] [place] Erythrocyte distribution width (RBC) [Ratio] 13.5 % Normal 11.5-15.0 [facility] Comment on above: Order Comment: Speci men Type: SWAB Ordering Facility: [facility] Address: [address] [place] [address] Performed By: #### C VTV, BVAMP #### [facility] CLIA [id number] [address] [place] [address] [place] Hematocrit (Bld) [Volume fraction] 42.0 % Normal 36.0-46.0 [facility] Comment on above: Order Comment: Speci men Type: SWAB Ordering Facility: [facility] Address: [address] [place] [address] Performed By: #### C VTV, BVAMP #### [facility] CLIA [id number] [address] [place] [address] [place] Hemoglobin (Bld) [Mass/Vol] 13.0 g/dL Normal 11.5-15.5 [facility] Comment on above: Order Comment: Speci men Type: SWAB Ordering Facility: [facility] Address: [address] [place] [address] Performed By: #### C VTV, BVAMP #### [facility] CLIA [id number] [address] [place] [address] [place] Immature granulocytes (Bld) [#/Vol] 10*3/uL Normal <0.10 [facility] Comment on above: Order Comment: Speci men Type: SWAB Ordering Facility: [facility] Address: [address] [place] [address] Performed By: #### C VTV, BVAMP #### [facility] CLIA [id number] [address] [place] [address] [place] Immature granulocytes/100 WBC (Bld) 0.2 % Normal [facility] Comment on above: Order Comment: Speci men Type: SWAB Ordering Facility: [facility] Address: [address] [place] [address] Performed By: #### C VTV, BVAMP #### [facility] CLIA [id number] [address] [place] [address] [place] Lymphocytes (Bld) [#/Vol] 2.33 10*3/uL Normal 1.00-4.00 [facility] Comment on above: Order Comment: Speci men Type: SWAB Ordering Facility: [facility] Address: [address] [place] [address] Performed By: #### C VTV, BVAMP #### [facility] CLIA [id number] [address] [place] [address] [place] Lymphocytes/100 WBC (Bld) 27.9 % Normal [facility] Comment on above: Order Comment: Speci men Type: SWAB Ordering Facility: [facility] Address: [address] [place] [address] Performed By: #### C VTV, BVAMP #### [facility] CLIA [id number] [address] [place] [address] [place] MCH (RBC) [Entitic mass] 27.3 pg Normal 26.0-34.0 [facility] Comment on above: Order Comment: Speci men Type: SWAB Ordering Facility: [facility] Address: [address] [place] [address] Performed By: #### C VTV, BVAMP #### [facility] CLIA [id number] [address] [place] [address] [place] MCHC (RBC) [Mass/Vol] 31.0 g/dL Normal 30.5-36.0 [facility] Comment on above: Order Comment: Speci men Type: SWAB Ordering Facility: [facility] Address: [address] [place] [address] Performed By: #### C VTV, BVAMP #### [facility] CLIA [id number] [address] [place] [address] [place] MCV (RBC) [Entitic vol] 88.1 fL Normal 80.0-100.0 [facility] Comment on above: Order Comment: Speci men Type: SWAB Ordering Facility: [facility] Address: [address] [place] [address] Performed By: #### C VTV, BVAMP #### [facility] CLIA [id number] [address] [place] [address] [place] Monocytes (Bld) [#/Vol] 0.47 10*3/uL Normal <0.87 [facility] Comment on above: Order Comment: Speci men Type: SWAB Ordering Facility: [facility] Address: [address] [place] [address] Performed By: #### C VTV, BVAMP #### [facility] CLIA [id number] [address] [place] [address] [place] Monocytes/100 WBC (Bld) 5.6 % Normal [facility] Comment on above: Order Comment: Speci men Type: SWAB Ordering Facility: [facility] Address: [address] [place] [address] Performed By: #### C VTV, BVAMP #### [facility] CLIA [id number] [address] [place] [address] [place] Neutrophils (Bld) [#/Vol] 5.19 10*3/uL Normal 1.45-7.50 [facility] Comment on above: Order Comment: Speci men Type: SWAB Ordering Facility: [facility] Address: [address] [place] [address] Performed By: #### C VTV, BVAMP #### [facility] CLIA [id number] [address] [place] [address] [place] Neutrophils/100 WBC (Bld) 62.2 % Normal [facility] Comment on above: Order Comment: Speci men Type: SWAB Ordering Facility: [facility] Address: [address] [place] [address] Performed By: #### C VTV, BVAMP #### [facility] CLIA [id number] [address] [place] [address] [place] Nucleated RBC (Bld) [#/Vol] 10*3/uL Normal <0.01 [facility] Comment on above: Order Comment: Speci men Type: SWAB Ordering Facility: [facility] Address: [address] [place] [address] Performed By: #### C VTV, BVAMP #### [facility] CLIA [id number] [address] [place] [address] [place] Nucleated RBC/100 WBC (Bld) [Ratio] 0.0 /100 WBC Normal [facility] Comment on above: Order Comment: Speci men Type: SWAB Ordering Facility: [facility] Address: [address] [place] [address] Performed By: #### C VTV, BVAMP #### [facility] CLIA [id number] [address] [place] [address] [place] Platelet mean volume (Bld) [Entitic vol] 9.6 fL Normal 9.0-12.7 [facility] Comment on above: Order Comment: Speci men Type: SWAB Ordering Facility: [facility] Address: [address] [place] [address] Performed By: #### C VTV, BVAMP #### [facility] CLIA [id number] [address] [place] [address] [place] Platelets (Bld) [#/Vol] 387 10*3/uL Normal 150-400 [facility] Comment on above: Order Comment: Speci men Type: SWAB Ordering Facility: [facility] Address: [address] [place] [address] Performed By: #### C VTV, BVAMP #### [facility] CLIA [id number] [address] [place] [address] [place] RBC (Bld) [#/Vol] 4.77 10*6/uL Normal 3.90-5.20 [facility] Comment on above: Order Comment: Speci men Type: SWAB Ordering Facility: [facility] Address: [address] [place] [address] Performed By: #### C VTV, BVAMP #### [facility] CLIA [id number] [address] [place] [address] [place] WBC (Bld) [#/Vol] 8.36 10*3/uL Normal 3.70-11.00 [facility] Comment on above: Order Comment: Speci men Type: SWAB Ordering Facility: [facility] Address: [address] [place] [address] Performed By: #### C VTV, BVAMP #### [facility] CLIA [id number] [address] [place] [address] [place] CNOVon 11-12-2024 CNOV Office Visit (UCWSTR ) -- NIVIA HERMOSILLO ([id number]) 1975 F [facility] Date Time Provider Department 11/12/24 2:00 PM AGAPITO PHILLIP [facility] During your visit today, we recorded the following information about you: Temperature Pulse Respiration Blood pressure 98.3 degrees 96/minute 16/minute 120/68 Weight 77.2 kg Agapito Phillip APRN.DOOR PATCHER 11/12/2024 2:31 PM Signed [facility] Subjective Nivia M Blake is a 49 year old female. Patient presents with: Urinary Frequency: burning x 4 days HPI Nontoxic-appearing 49-year-old female presents urgent care chief complaint possible UTI. Duration of symptoms 4 days. Associated symptoms burning frequency urgency. Does have some vaginal itching. Was seen in the ED on 08 October. Diagnosed with UTI. Placed on cefdinir. States symptoms have improved some but returned again. Presents today for evaluation. OTC medications none. No vomiting abdominal pain. Episodic flank pain. Denies urological abnormalities. Past medical history prescription medications allergies reviewed Review of Systems Constitutional: Negative for chills, fatigue and fever. Gastrointestinal: Negative for abdominal distention, abdominal pain, nausea, rectal pain and vomiting. Genitourinary: Positive for dysuria, frequency and urgency. Negative for difficulty urinating, dyspareunia, flank pain, genital sores, hematuria, vaginal bleeding, vaginal discharge and vaginal pain. Objective BP 120/68 Pulse 96 Temp 36.8 ?C (98.3 ?F) Resp 16 Wt 77.2 kg (170 lb 3.1 oz) LMP (LMP Unknown) SpO2 96% BMI 27.47 kg/m? Physical Exam Constitutional: Appearance: Normal appearance. HENT: Mouth/Throat: Mouth: Mucous membranes are moist. Cardiovascular: Rate and Rhythm: Normal rate. Pulmonary: Effort: Pulmonary effort is normal. Breath sounds: Normal breath sounds. Abdominal: Tenderness: There is no abdominal tenderness. There is no right CVA tenderness, left CVA tenderness, guarding or rebound. Neurological: Mental Status: She is alert. {ASSESSMENT/PLAN: 1. Urinary frequency - ICD9: 788.41, ICD10: R35.0 - UA DIP, URINE (POC) - BACTERIAL CULTURE, URINE - PARMINDER/TRICHOMONAS NAAT - BACTERIAL VAGINOSIS NAAT Only trace amount leukocytes noted on today's urine dip. No antibiotics at today's visit. Will send urine culture off as well as vaginal self swabs. Treat accordingly test results. Patient was educated on supportive therapies. Was instructed to follow-up with [facility] [employer] or PCP next 3 to 5 days reevaluation. patient was instructed to immediately proceed to emergency room for any new, worsening, or symptoms lasting longer than anticipated. The patient's clinical presentation is otherwise unremarkable at this time. Based on exam and clinical finding, the patient is stable for discharge. Plan of care was discussed with patient. Patient verbalizes understanding and agrees to plan of care. This note was generated using Yozio software. It may contain errors in wording, punctuation, or spelling. Agapito Phillip APRN.DOOR PATCHER History and Record Review Clinical information obtained from an independent historian. History obtained from or confirmed by: parent. External record(s) reviewed: prior outpatient record. Disposition The patient was discharged. OTC Medications were advised: Procedures Allergies As of Date: 11/12/2024 Noted Allergy Reaction PEANUTS 09/15/2022 10 - Anaphylaxis ESGIC (BUTALBITAL-ACETAMINOPHEN- C*08/23/2016 14 - Other: See Comments Comments: headache HAZELNUT 11/13/2016 10 - Anaphylaxis KEFLEX (CEPHALEXIN) 07/21/2016 11 - Vomiting LATEX 02/15/2017 14 - Other: See Comments Comments: Break out MACADAMIA NUT OIL 11/13/2016 10 - Anaphylaxis ONION 02/15/2017 14 - Other: See Comments Comments: Dehydrated onion - headaches OXYCODONE 03/20/2018 15 - Contraindication-Medical Vargas* VICODIN TUSS (HYDROCODONE-GUAIFEN*07/21 1 - Mental Status Change Date Reviewed: 11/12/2024 Reviewed by: Agapito Phillip APRN.DOOR PATCHER - Fully Assessed Reason for Visit: Urinary Frequency [1086] Cmt: burning x 4 days Primary Visit Diagnosis:Urinary frequency [R35.0] Order(s):UA DIP, URINE (POC) [1990793] Order #: [id number]. #:[id number] 6-LAB BACTERIAL CULTURE, URINE [SQURCUL] Order #: [id number]. #:[id number] PARMINDER/TRICHOMONAS NAAT [SQCVTV] Order #: [id number]. #:[id number] BACTERIAL VAGINOSIS NAAT [SQBVAMP] Order #: [id number]. #:[id number] Prescriptions as of 11/12/2024 - gabapentin (NEURONTIN) 100 mg capsule Take 1 capsule by mouth three times a day. - DUPIXENT SYRINGE 300 mg/2 mL injection - hydrOXYzine pamoate (VISTARIL) 25 mg capsule Take 25 mg by mouth. - omeprazole (PRILOSEC) 40 mg capsule Take 1 capsule by mouth. - Bmambdk-Khwvcvkuvwzqa-Jepi eine 250-250-65 mg per tablet Take 1 tablet by (more content not included)... Normal [facility] Comprehensive metabolic 2000 panelon 11-12-2024 Albumin [Mass/Vol] 3.5 g/dL Low 3.9-4.9 [facility] Comment on above: Order Comment: Speci men Type: SWAB Ordering Facility: [facility] Address: [address] [place] [address] Performed By: #### C VTV, BVAMP #### [facility] CLIA [id number] [address] [place] [address] [place] ALP [Catalytic activity/Vol] 175 U/L High 34-123 [facility] Comment on above: Order Comment: Speci men Type: SWAB Ordering Facility: [facility] Address: [address] [place] [address] Performed By: #### C VTV, BVAMP #### [facility] CLIA [id number] [address] [place] [address] [place] ALT [Catalytic activity/Vol] 13 U/L Normal 7-38 [facility] Comment on above: Order Comment: Speci men Type: SWAB Ordering Facility: [facility] Address: [address] [place] [address] Performed By: #### C VTV, BVAMP #### [facility] CLIA [id number] [address] [place] [address] [place] Anion gap [Moles/Vol] 13 mmol/L Normal 8-15 [facility] Comment on above: Order Comment: Speci men Type: SWAB Ordering Facility: [facility] Address: [address] [place] [address] Performed By: #### C VTV, BVAMP #### [facility] CLIA [id number] [address] [place] [address] [place] AST [Catalytic activity/Vol] 20 U/L Normal 13-35 [facility] Comment on above: Order Comment: Speci men Type: SWAB Ordering Facility: [facility] Address: [address] [place] [address] Performed By: #### C VTV, BVAMP #### [facility] CLIA [id number] [address] [place] [address] [place] Bilirubin [Mass/Vol] 0.2 mg/dL Normal 0.2-1.3 [facility] Comment on above: Order Comment: Speci men Type: SWAB Ordering Facility: [facility] Address: [address] [place] [address] Performed By: #### C VTV, BVAMP #### [facility] CLIA [id number] [address] [place] [address] [place] Calcium [Mass/Vol] 9.1 mg/dL Normal 8.5-10.2 [facility] Comment on above: Order Comment: Speci men Type: SWAB Ordering Facility: [facility] Address: [address] [place] [address] Performed By: #### C VTV, BVAMP #### [facility] CLIA [id number] [address] [place] [address] [place] Chloride [Moles/Vol] 105 mmol/L Normal 98-107 [facility] Comment on above: Order Comment: Speci men Type: SWAB Ordering Facility: [facility] Address: [address] [place] [address] Performed By: #### C VTV, BVAMP #### [facility] CLIA [id number] [address] [place] [address] [place] CO2 [Moles/Vol] 21 mmol/L Low 22-30 [facility] Comment on above: Order Comment: Speci men Type: SWAB Ordering Facility: [facility] Address: [address] [place] [address] Performed By: #### C VTV, BVAMP #### [facility] CLIA [id number] [address] [place] [address] [place] Creatinine [Mass/Vol] 0.66 mg/dL Normal 0.58-0.96 [facility] Comment on above: Order Comment: Speci men Type: SWAB Ordering Facility: [facility] Address: [address] [place] [address] Performed By: #### C VTV, BVAMP #### [facility] CLIA [id number] [address] [place] [address] [place] Creatinine and Glomerular filtration rate.predicted panel (S/P/Bld) 107 mL/min/1.73m??? Normal >=60 [facility] Comment on above: Order Comment: Brett martinez Type: SWAB Ordering Facility: [facility] Address: [address] [place] [address] Result Comment: Rama mated Glomerular Filtration Rate (eGFR) is calculated using the 2020 CKD-EPI creatinine equation. This equation utilizes serum creatinine, sex, and age as parameters. The creatinine assay has traceable calibration to isotope dilution-mass spectrometry. Refer to KDIGO guidelines for clinical interpretation. In patients with unstable renal function, e.g. those with acute kidney injury, the eGFR may not accurately reflect actual GFR. Performed By: #### C VTV, BVAMP #### [facility] CLIA [id number] [address] [place] [address] [place] Glucose [Mass/Vol] 89 mg/dL Normal 74-99 [facility] Comment on above: Order Comment: Brett martinez Type: SWAB Ordering Facility: [facility] Address: [address] [place] [address] Result Comment: The [place] Diabetes Association (ADA) provides guidance for cutoff values for fasting glucose and random glucose. The ADA defines fasting as no caloric intake for at least 8 hours. Fasting plasma glucose results between 100 to 125 mg/dL indicate increased risk for diabetes (prediabetes). Fasting plasma glucose results greater than or equal to 126 mg/dL meet the criteria for diagnosis of diabetes. In the absence of unequivocal hyperglycemia, results should be confirmed by repeat testing. In a patient with classic symptoms of hyperglycemia or hyperglycemic crisis, random plasma glucose results greater than or equal to 200 mg/dL meet the criteria for diagnosis of diabetes. Reference: Standards of Medical Care in Diabetes 2016, [place] Diabetes Association. Diabetes Care. 2016.39(Suppl 1). Performed By: #### C VTV, BVAMP #### [facility] CLIA [id number] [address] [place] [address] [place] Potassium [Moles/Vol] 3.6 mmol/L Low 3.7-5.1 [facility] Comment on above: Order Comment: Speci men Type: SWAB Ordering Facility: [facility] Address: [address] [place] [address] Performed By: #### C VTV, BVAMP #### [facility] CLIA [id number] [address] [place] [address] [place] Protein [Mass/Vol] 7.8 g/dL Normal 6.3-8.0 [facility] Comment on above: Order Comment: Speci men Type: SWAB Ordering Facility: [facility] Address: [address] [place] [address] Performed By: #### C VTV, BVAMP #### [facility] CLIA [id number] [address] [place] [address] [place] Sodium [Moles/Vol] 139 mmol/L Normal 136-144 [facility] Comment on above: Order Comment: Speci men Type: SWAB Ordering Facility: [facility] Address: [address] [place] [address] Performed By: #### C VTV, BVAMP #### [facility] CLIA [id number] [address] [place] [address] [place] Urea nitrogen [Mass/Vol] 10 mg/dL Normal 7-21 [facility] Comment on above: Order Comment: Speci men Type: SWAB Ordering Facility: [facility] Address: [address] [place] [address] Performed By: #### C VTV, BVAMP #### [facility] CLIA [id number] [address] [place] [address] [place] Lipid 1996 panelon 5 Cholesterol [Mass/Vol] 128 mg/dL Normal <200 [facility] Comment on above: Order Comment: Speci men Type: SWAB Ordering Facility: [facility] Address: [address] [place] [address] Result Comment: <200 mg/dL, Desirable 200-239 mg/dL, Borderline high >239 mg/dL, High Performed By: #### C GATO, BVAMP #### [facility] CLIA [id number] [facility] [place] [id number] [place] Cholesterol in HDL [Mass/Vol] 49 mg/dL Normal >39 [facility] Comment on above: Order Comment: Speci men Type: SWAB Ordering Facility: [facility] Address: [address] [place] [address] Result Comment: 40-5 9 mg/dL, Acceptable >59 mg/dL, High: Negative risk factor for coronary heart disease <40 mg/dL, Low: Positive risk factor for coronary heart disease Performed By: #### C GATO, BVAMP #### [facility] CLIA [id number] [address] [place], [place] [address] [place] Cholesterol in LDL [Mass/Vol] 61 mg/dL Normal <100 [facility] Comment on above: Order Comment: Marizai men Type: SWAB Ordering Facility: [facility] Address: [address] [place] [address] Result Comment: <100 mg/dL, Optimal 100-129 mg/dL, Near optimal/above optimal 130-159 mg/dL, Borderline high 160-189 mg/dL, High >189 mg/dL, Very high Secondary prevention optimal LDL Cholesterol levels are recommended to be <70 mg/dL LDL cholesterol is calculated using the Prasad-NIH equation. Performed By: #### C GATO, BVAMP #### [facility] CLIA [id number] [facility] [place] [address] [place] Cholesterol in LDL/Cholesterol in HDL [Mass ratio] 1.24 {ratio} Normal <2.54 [facility] Comment on above: Order Comment: Speci men Type: SWAB Ordering Facility: [facility] Address: [address] [place] [address] Result Comment: Refe patrick: 1. National Cholesterol Education Program ATP III Guideline At-A-Glance Quick Desk Reference: National Heart, Lung, and Blood [place]. National Institutes of Health. 2001: NIH Publication No. 01-3305. 2. An International Atherosclerosis Society position paper: global recommendations for the management of dyslipidemia: executive summary, Atherosclerosis. 2014: 232(2):410-413. Performed By: #### C VTV, BVAMP #### [facility] CLIA [id number] [address] [place], [place] [address] [place] [address] [place] Cholesterol in VLDL [Mass/Vol] 14 mg/dL Normal <30 [facility] Comment on above: Order Comment: Speci men Type: SWAB Ordering Facility: [facility] Address: [address] [place] [address] Performed By: #### C VTV, BVAMP #### [facility] CLIA [id number] [address] [place] [address] [place] Cholesterol non HDL [Mass/Vol] 79 mg/dL Normal <130 [facility] Comment on above: Order Comment: Speci men Type: SWAB Ordering Facility: [facility] Address: [address] [place] [address] Result Comment: <130 mg/dL, Optimal 130-159 mg/dL, Near optimal/above optimal 160-189 mg/dL, Borderline high 190-219 mg/dL, High >219 mg/dL, Very high Secondary prevention optimal non HDL Cholesterol levels are recommended to be <100 mg/dL Performed By: #### C VTV, BVAMP #### [facility] CLIA [id number] [address] [place] [address] [place] Cholesterol.total/Cho lesterol in HDL [Mass ratio] 2.61 {ratio} Normal <5.10 [facility] Comment on above: Order Comment: Speci men Type: SWAB Ordering Facility: [facility] Address: [address] [place] [address] Performed By: #### C VTV, BVAMP #### [facility] CLIA [id number] [address] [place] [address] [place] FASTING TIME 12 hrs Normal [facility] Comment on above: Order Comment: Speci men Type: SWAB Ordering Facility: [facility] Address: [address] [place] [address] Performed By: #### C VTV, BVAMP #### [facility] CLIA [id number] [address] [place] [address] [place] Triglyceride [Mass/Vol] 93 mg/dL Normal <150 [facility] Comment on above: Order Comment: Speci men Type: SWAB Ordering Facility: [facility] Address: [address] [place] [address] Result Comment: <150 mg/dL, Normal 150-199 mg/dL, Borderline high 200-499 mg/dL, High >499 mg/dL, Very high Performed By: #### C VTV, BVAMP #### [facility] CLIA [id number] [address] [place] [address] [place] CNTHERAPYon 11-10-2024 CNTHERAPY OT/PT/Speech Visit ( PTWS) -- NIVIA HERMOSILLO ([id number]) 1975 F CHT Date Time Provider Department 11/10/24 11:30 AM JACOBO GOULD PTWS Date Time Provider Department Center 11/10/2024 11:30 AM [id number], COLIN PTWS Karen Amezcua Reason for Visit: PT Discharge [752] Primary Visit Diagnosis:Radiculopathy of cervical spine [M54.12] Other Visit Diagnosis:Neck pain [M54.2] Allergies As of Date: 11/10/2024 Noted Allergy Reaction PEANUTS 09/15/2022 10 - Anaphylaxis ESGIC (BUTALBITAL-ACETAMINOPHEN- C*08/23/2016 14 - Other: See Comments Comments: headache HAZELNUT 11/13/2016 10 - Anaphylaxis KEFLEX (CEPHALEXIN) 07/21/2016 11 - Vomiting LATEX 02/15/2017 14 - Other: See Comments Comments: Break out MACADAMIA NUT OIL 11/13/2016 10 - Anaphylaxis ONION 02/15/2017 14 - Other: See Comments Comments: Dehydrated onion - headaches OXYCODONE 03/20/2018 15 - Contraindication-Medical Vargas* VICODIN TUSS (HYDROCODONE-GUAIFEN*07/21 1 - Mental Status Change Date Reviewed: 10/01/2023 Reviewed by: Sunitha Alexander MA - Fully Assessed Prescriptions as of 11/10/2024 - gabapentin (NEURONTIN) 100 mg capsule Take 1 capsule by mouth three times a day. - DUPIXENT SYRINGE 300 mg/2 mL injection - hydrOXYzine pamoate (VISTARIL) 25 mg capsule Take 25 mg by mouth. - omeprazole (PRILOSEC) 40 mg capsule Take 1 capsule by mouth. - Dwsjswn-Cuiokmpjmftkd-Dphk eine 250-250-65 mg per tablet Take 1 tablet by mouth. - COSENTYX PEN, 2 PENS, 150 mg/mL - propranolol (INDERAL) 10 mg tablet - ferrous sulfate 325 mg (65 mg iron) EC tablet Take 325 mg by mouth. - omeprazole (PRILOSEC) 20 mg capsule - HUMIRA PEN 40 mg/0.8 mL pnkt - amitriptyline (ELAVIL) 50 mg tablet 75 mg. - Aug Betamethasone Dipropionate (DIPROLENE) 0.05 % ointment apply to affected area twice a day as directed (AVOID FACE, GROIN, UNDERARMS) - Cyanocobalamin 1,000 mcg TbER Take 1 tablet by mouth once daily. - AIMOVIG AUTOINJECTOR, 2 PACK, 70 mg/mL AutoInjector - folic acid 1 mg tablet 1 tablet daily by mouth except day you take methotrexate. - hydrocortisone 2.5 % cream apply twice a day topically to affected areas on face for 2-3 weeks, then weekends only. Repeat every few months for flares - hydrOXYzine pamoate (VISTARIL) 25 mg capsule 3 TIMES DAILY NEEDED PRN For Anxiety - naproxen (NAPROSYN) 500 mg tablet Take 500 mg by mouth twice daily as needed. - topiramate (TOPAMAX) 200 mg tablet Take 200 mg by mouth daily at bedtime. - triamcinolone (KENALOG) 0.1 % lotion APPLY TWICE A DAY TO SCALP NEEDED FOR ITCHING/REDNESS - oxyCODONE (ROXICODONE) 5 mg/5 mL oral solution 1 teaspoon(s) (5 mL) every six(6) hours as needed for pain, by mouth. Earliest Fill Date: 10/25/17 - enoxaparin (LOVENOX) 40 mg/0.4 mL syrg Inject 0.4 mL subcutaneously twice daily. (Inject entire contents of one(1) syringe) - famotidine (PEPCID) 20 mg tablet Take 1 tablet by mouth twice daily. - scopolamine (TRANSDERM-SCOP) 1 mg over 3 days Apply 1 Patch as directed every 72 hours. - ondansetron orally disintegrating (ZOFRAN ODT) 4 mg disintegrating tablet Take 1 tablet by mouth every 8 hours as needed. - methotrexate 2.5 mg tablet Take 15 mg by mouth once each week. - topiramate (TOPAMAX) 100 mg tablet Take 2 nigthly - prochlorperazine (COMPAZINE) 10 mg tablet Take 1 tablet by mouth every 8 hours as needed. - Ketoconazole 1 % sham Apply 1 application to affected area. - albuterol HFA (PROVENTIL HFA) 90 mcg/actuation inhaler Inhale 2 Puffs as instructed every 4 hours as needed (for shortness of breath and wheezing.). - DULoxetine (CYMBALTA) 60 mg capsule Take 120 mg by mouth once daily. - nystatin (MYCOSTATIN) ointment Apply 1 application to affected area twice daily. - hydrOXYzine HCl (ATARAX) 25 mg tablet Take 25 mg by mouth four times daily as needed. Industrial Management Teacher: Addendum Therapy (PT/OT/Speech/Resp) ID: [id number] 11/10/2024 12:05 PM Author: JACOBO GOULD Signed by JACOBO GOULD PT on 11/10/2024 at 12:05 PM * * * This document replaces document [id number] * * * Document text: Program_ID:[id number] Access Code: [email or web address] URL: [email or web address] Date: 11-10-2024 Prepared By: Jacobo Gould Program Notes Exercises - Supine Cervical Retraction with Towel - 2 x daily - 7 x weekly - 2-3 sets - 10 reps - Shoulder External Rotation and Scapular Retraction with Resistance - 2 x daily - 7 x weekly - 2-3 sets - 10 reps - Upper Trapezius Stretch - 2 x daily - 7 x weekly - sets - 3-4 reps - Gentle Levator Scapulae Stretch - 2 x daily - 7 x weekly - sets - 3-4 reps - Standing Upper Trapezius Mobilization with Small Ball - 1-2 x daily - 7 x weekly - sets - reps - Standing Isometric Cervical Extension with Manual (more content not included)... Normal [facility] THERAPY NTon 11-10-2024 THERAPY NT HNO ID: [id number] Author: JACOBO GOULD, PT Service: ? Author Type: Physical Therapist Type: Therapy (PT/OT/Speech/Resp) Filed: 11/10/2024 12:05 Note Text: Program_ID:[id number] Access Code: [email or web address] URL: [email or web address] Date: 11-10-2024 Prepared By: Jacobo Gould Program Notes Exercises - Supine Cervical Retraction with Towel - 2 x daily - 7 x weekly - 2-3 sets - 10 reps - Shoulder External Rotation and Scapular Retraction with Resistance - 2 x daily - 7 x weekly - 2-3 sets - 10 reps - Upper Trapezius Stretch - 2 x daily - 7 x weekly - sets - 3-4 reps - Gentle Levator Scapulae Stretch - 2 x daily - 7 x weekly - sets - 3-4 reps - Standing Upper Trapezius Mobilization with Small Ball - 1-2 x daily - 7 x weekly - sets - reps - Standing Isometric Cervical Extension with Manual Resistance - 2 x daily - 7 x weekly - 2 sets - 10 reps Normal [facility] CNTHERAPYon 10-20-2024 CNTHERAPY OT/PT/Speech Visit ( PTWS) -- NIVIA HERMOSILLO ([id number]) 1975 F CHT Date Time Provider Department 10/20/24 2:15 PM JACOBO GOULD PTWS Date Time Provider Department Center 10/20/2024 2:15 PM [id number], COLIN PTWS [facility] Reason for Visit: Physical Therapy [503] Primary Visit Diagnosis:Radiculopathy of cervical spine [M54.12] Other Visit Diagnosis:Neck pain [M54.2] Allergies As of Date: 10/20/2024 Noted Allergy Reaction PEANUTS 09/15/2022 10 - Anaphylaxis ESGIC (BUTALBITAL-ACETAMINOPHEN- C*08/23/2016 14 - Other: See Comments Comments: headache HAZELNUT 11/13/2016 10 - Anaphylaxis KEFLEX (CEPHALEXIN) 07/21/2016 11 - Vomiting LATEX 02/15/2017 14 - Other: See Comments Comments: Break out MACADAMIA NUT OIL 11/13/2016 10 - Anaphylaxis ONION 02/15/2017 14 - Other: See Comments Comments: Dehydrated onion - headaches OXYCODONE 03/20/2018 15 - Contraindication-Medical Vargas* VICODIN TALAT (HYDROCODONE-GUAIFEN*07/21 1 - Mental Status Change Date Reviewed: 10/01/2023 Reviewed by: Sunitha Alexander MA - Fully Assessed Prescriptions as of 10/20/2024 - gabapentin (NEURONTIN) 100 mg capsule Take 1 capsule by mouth three times a day. - DUPIXENT SYRINGE 300 mg/2 mL injection - hydrOXYzine pamoate (VISTARIL) 25 mg capsule Take 25 mg by mouth. - omeprazole (PRILOSEC) 40 mg capsule Take 1 capsule by mouth. - Qwgvqqt-Suyojcfudyxma-Ffya eine 250-250-65 mg per tablet Take 1 tablet by mouth. - COSENTYX PEN, 2 PENS, 150 mg/mL - propranolol (INDERAL) 10 mg tablet - ferrous sulfate 325 mg (65 mg iron) EC tablet Take 325 mg by mouth. - omeprazole (PRILOSEC) 20 mg capsule - HUMIRA PEN 40 mg/0.8 mL pnkt - amitriptyline (ELAVIL) 50 mg tablet 75 mg. - Aug Betamethasone Dipropionate (DIPROLENE) 0.05 % ointment apply to affected area twice a day as directed (AVOID FACE, GROIN, UNDERARMS) - Cyanocobalamin 1,000 mcg TbER Take 1 tablet by mouth once daily. - AIMOVIG AUTOINJECTOR, 2 PACK, 70 mg/mL AutoInjector - folic acid 1 mg tablet 1 tablet daily by mouth except day you take methotrexate. - hydrocortisone 2.5 % cream apply twice a day topically to affected areas on face for 2-3 weeks, then weekends only. Repeat every few months for flares - hydrOXYzine pamoate (VISTARIL) 25 mg capsule 3 TIMES DAILY NEEDED PRN For Anxiety - naproxen (NAPROSYN) 500 mg tablet Take 500 mg by mouth twice daily as needed. - topiramate (TOPAMAX) 200 mg tablet Take 200 mg by mouth daily at bedtime. - triamcinolone (KENALOG) 0.1 % lotion APPLY TWICE A DAY TO SCALP NEEDED FOR ITCHING/REDNESS - oxyCODONE (ROXICODONE) 5 mg/5 mL oral solution 1 teaspoon(s) (5 mL) every six(6) hours as needed for pain, by mouth. Earliest Fill Date: 10/25/17 - enoxaparin (LOVENOX) 40 mg/0.4 mL syrg Inject 0.4 mL subcutaneously twice daily. (Inject entire contents of one(1) syringe) - famotidine (PEPCID) 20 mg tablet Take 1 tablet by mouth twice daily. - scopolamine (TRANSDERM-SCOP) 1 mg over 3 days Apply 1 Patch as directed every 72 hours. - ondansetron orally disintegrating (ZOFRAN ODT) 4 mg disintegrating tablet Take 1 tablet by mouth every 8 hours as needed. - methotrexate 2.5 mg tablet Take 15 mg by mouth once each week. - topiramate (TOPAMAX) 100 mg tablet Take 2 nigthly - prochlorperazine (COMPAZINE) 10 mg tablet Take 1 tablet by mouth every 8 hours as needed. - Ketoconazole 1 % sham Apply 1 application to affected area. - albuterol HFA (PROVENTIL HFA) 90 mcg/actuation inhaler Inhale 2 Puffs as instructed every 4 hours as needed (for shortness of breath and wheezing.). - DULoxetine (CYMBALTA) 60 mg capsule Take 120 mg by mouth once daily. - nystatin (MYCOSTATIN) ointment Apply 1 application to affected area twice daily. - hydrOXYzine HCl (ATARAX) 25 mg tablet Take 25 mg by mouth four times daily as needed. Normal [facility] Urine Cultureon 10-08-2024 [facility] Mixed Gram Positive Organisms [place] Count 50,000-80,000 MIXC Mixed contaminants. Submit a new specimen if indicated. Normal [facility] Comment on above: Performed By: #### M 100.2200 #### [facility] [address] [place], [address] [id number] 10-07-2024 [id number] HNO ID: [id number] Author: JACOBO GOULD PT Service: ? Author Type: Physical Therapist Type: [id number] Filed: 10/07/2024 13:23 Note Text: [facility] Physical Therapy Plan of Care Certification Patient Name: Nivia Hermosillo : 1975 [facility] #: [id number] Date: 10/07/2024 To: Specialists, Comprehens* From Therapist: Jacobo Gould PT RE: Patient Certification/ Recertification Your review, approval and electronic signature are required in order to comply with Payor: [place] MEDICA[employer] / Plan: [facility] MEDICAID / Product Type: Medicaid / regulations. The identified Physical Therapy PLAN OF CARE for the patient is as follows: M54.2 Neck pain (primary encounter diagnosis) PATIENT WILL NEED AN ORDER BEFORE 2nd Visit - She is reaching out to her referring provider. Will resend POC AND Addend (if needed) when ordered is received. PLAN OF CARE: Assessment: Nivia Hermosillo presents with chief complaint of migraines and bilateral neck myofascial pain (L > R) that interferes with sleeping, physical activities, reaching overhead, use hand with arm at shoulder level . The patient presents with impairments in ADL's, flexibility, independence in exercise, overall function, patient reported outcome measures, posture, range of motion, soft tissue healing, strength, symptom management, and tissue tenderness. PROMIS? (Patient-Reported Outcomes Measurement Information System) scores were reviewed and identified as a rehabilitation concern. Prognosis for therapy is Good due to: current objective clinical presentation, positive past response to therapy, Prognosis may be limited due to chronic nature of impairments . The patient will benefit from skilled therapy services to meet the goals established for this plan of care as noted below. Goals for Episode of Care: established 10/07/24 Patient reported outcome of pain Interference will decrease T -score by a minimum of 5 points. 2. Improve deep neck flexor strength by 4-5 seconds to help improve neck/shoulder posture. 3. Restore pain free cervical ROM to WNL to allow for improved ADL/IADLs. 4. Sleep throughout the night without pain/symptoms. 5. Maintain proper sitting posture throughout the session to allow for decreased pain and frequency of concordant sxs. 6. Patient will increase strength of B scapular strength to 4+/5 to allow for improve ability to maintain proper posture. 7. Improve Neck Disability Index (NDI) by 7.5 points to indicate a Minimal Clinical Important Difference. Patient Goals: Alleviate Pain. Time Frame for Goals and Treatment : 12/02/24 Planned Interventions, Frequency, and Duration: Current Frequency: 1x/week Duration: 5 weeks Total Number of Visits Planned: 5 Planned Treatment Interventions: Therapeutic exercise (55939), Neuromuscular re-education (49311), Manual therapy (67682), Therapeutic activities (83912), Self-prison management (52315), Patient/Family/Caregiver Education PLAN FOR NEXT VISIT: Review, correct and progress HEP as tolerated. Postural strengthening. Manual for soft tissue restrictions. Traction for pain relief. Patient demonstrates good understanding of plan of care and treatment. The above goals and plan of care were discussed and agreed upon by patient/family. For further details regarding this patient refer to the Physical Therapy electronically documented visit dated 10/07/2024. Provider Attestation I have reviewed the treatment plan for Nivia Hermosillo, [facility]# [id number] for the period of 10/07/24 -- 11/14/24, established on 10/07/2024. Signature certifies the need for therapy services. Normal [facility] Bilirubin Test strip Ql (U)O rdered By: Gene Peterson on 10-07-2024 Bilirubin Ql (U) 3 mg/dL High Negative [facility] Comment on above: COLOR OF URINE MAY A FFECT DIPSTICK RESULTS. CNTHERAPYon 10-07-2024 CNTHERAPY OT/PT/Speech Visit ( PTWS) -- NIVIA HERMOSILLO ([id number]) 1975 F CHT Date Time Provider Department 10/07/24 8:30 AM JACOBO GOULD PTWS Date Time Provider Department Center 10/07/2024 8:30 AM [id number], COLIN PTWS [facility] Reason for Visit: PT Eval [747] Primary Visit Diagnosis:Neck pain [M54.2] Allergies As of Date: 10/07/2024 Noted Allergy Reaction PEANUTS 09/15/2022 10 - Anaphylaxis ESGIC (BUTALBITAL-ACETAMINOPHEN- C*08/23/2016 14 - Other: See Comments Comments: headache HAZELNUT 11/13/2016 10 - Anaphylaxis KEFLEX (CEPHALEXIN) 07/21/2016 11 - Vomiting LATEX 02/15/2017 14 - Other: See Comments Comments: Break out MACADAMIA NUT OIL 11/13/2016 10 - Anaphylaxis ONION 02/15/2017 14 - Other: See Comments Comments: Dehydrated onion - headaches OXYCODONE 03/20/2018 15 - Contraindication-Medical Vargas* VICODIN TUSS (HYDROCODONE-GUAIFEN*07/21 1 - Mental Status Change Date Reviewed: 10/01/2023 Reviewed by: Sunitha Alexander MA - Fully Assessed Prescriptions as of 10/15/2024 - gabapentin (NEURONTIN) 100 mg capsule Take 1 capsule by mouth three times a day. - DUPIXENT SYRINGE 300 mg/2 mL injection - hydrOXYzine pamoate (VISTARIL) 25 mg capsule Take 25 mg by mouth. - omeprazole (PRILOSEC) 40 mg capsule Take 1 capsule by mouth. - Cpuyiaz-Ssxeldyvvuaic-Azyr eine 250-250-65 mg per tablet Take 1 tablet by mouth. - COSENTYX PEN, 2 PENS, 150 mg/mL - propranolol (INDERAL) 10 mg tablet - ferrous sulfate 325 mg (65 mg iron) EC tablet Take 325 mg by mouth. - omeprazole (PRILOSEC) 20 mg capsule - HUMIRA PEN 40 mg/0.8 mL pnkt - amitriptyline (ELAVIL) 50 mg tablet 75 mg. - Aug Betamethasone Dipropionate (DIPROLENE) 0.05 % ointment apply to affected area twice a day as directed (AVOID FACE, GROIN, UNDERARMS) - Cyanocobalamin 1,000 mcg TbER Take 1 tablet by mouth once daily. - AIMOVIG AUTOINJECTOR, 2 PACK, 70 mg/mL AutoInjector - folic acid 1 mg tablet 1 tablet daily by mouth except day you take methotrexate. - hydrocortisone 2.5 % cream apply twice a day topically to affected areas on face for 2-3 weeks, then weekends only. Repeat every few months for flares - hydrOXYzine pamoate (VISTARIL) 25 mg capsule 3 TIMES DAILY NEEDED PRN For Anxiety - naproxen (NAPROSYN) 500 mg tablet Take 500 mg by mouth twice daily as needed. - topiramate (TOPAMAX) 200 mg tablet Take 200 mg by mouth daily at bedtime. - triamcinolone (KENALOG) 0.1 % lotion APPLY TWICE A DAY TO SCALP NEEDED FOR ITCHING/REDNESS - oxyCODONE (ROXICODONE) 5 mg/5 mL oral solution 1 teaspoon(s) (5 mL) every six(6) hours as needed for pain, by mouth. Earliest Fill Date: 10/25/17 - enoxaparin (LOVENOX) 40 mg/0.4 mL syrg Inject 0.4 mL subcutaneously twice daily. (Inject entire contents of one(1) syringe) - famotidine (PEPCID) 20 mg tablet Take 1 tablet by mouth twice daily. - scopolamine (TRANSDERM-SCOP) 1 mg over 3 days Apply 1 Patch as directed every 72 hours. - ondansetron orally disintegrating (ZOFRAN ODT) 4 mg disintegrating tablet Take 1 tablet by mouth every 8 hours as needed. - methotrexate 2.5 mg tablet Take 15 mg by mouth once each week. - topiramate (TOPAMAX) 100 mg tablet Take 2 nigthly - prochlorperazine (COMPAZINE) 10 mg tablet Take 1 tablet by mouth every 8 hours as needed. - Ketoconazole 1 % sham Apply 1 application to affected area. - albuterol HFA (PROVENTIL HFA) 90 mcg/actuation inhaler Inhale 2 Puffs as instructed every 4 hours as needed (for shortness of breath and wheezing.). - DULoxetine (CYMBALTA) 60 mg capsule Take 120 mg by mouth once daily. - nystatin (MYCOSTATIN) ointment Apply 1 application to affected area twice daily. - hydrOXYzine HCl (ATARAX) 25 mg tablet Take 25 mg by mouth four times daily as needed. Industrial Management Teacher: Therapy (PT/OT/Speech/Resp) ID: [id number] 10/07/2024 9:06 AM Author: JACOBO GOULD Signed by JACOBO GOULD PT on 10/07/2024 at 9:06 AM Document text: Program_ID:[id number] Access Code: [email or web address] URL: [email or web address] Date: 10-07-2024 Prepared By: Jacobo Gould Program Notes Exercises - Supine Cervical Retraction with Towel - 2 x daily - 7 x weekly - 2-3 sets - 10 reps - Shoulder External Rotation and Scapular Retraction with Resistance - 2 x daily - 7 x weekly - 2-3 sets - 10 reps - Upper Trapezius Stretch - 2 x daily - 7 x weekly - sets - 3-4 reps - Gentle Levator Scapulae Stretch - 2 x daily - 7 x weekly - sets - 3-4 reps - Standing Upper Trapezius Mobilization with Small Ball - 1-2 x daily - 7 x weekly - sets - reps Letter Text Normal [facility] Calcium oxalate crystals LM Ql (Urine sed)Ordered By: Gene Peterson on 10-07-2024 Urine Calcium Oxalate Crystals 1+ /hpf [facility] Emergency Department Summary on 10-07-2024 Emergency Department Summary [facility] Medical Records Department [address] [place] [address] Emergency Department Summary 10/07/24 MR#: [id number] Acct: [id number] Name: NIVIA ABDUL Rep #: [id number] : 1975 49 From: Gene Peterson MD PCP: Status:DEP ER Location: ED HPI History of Present Illness Chief Complaint: General Illness Informant: patient Narrative Narrative: 49-year-old female states she had a procedure to repair a perforated septum done couple weeks ago at an ear nose throat outside of this area in [place]. Since then she has been feeling miserable. She feels like there is a very large object in her septum not just a small piece of silicone which is what they put in, she feels like her eyes are watering acid and they burn, her ears feel plugged like she went up in altitude and she is having trouble hearing out of them, the right side is worse than the left and they are achy, she feels like her mouth is dry, she is having nasal pain now because she has developed sore crusty sores mostly in the right side of her nose that feels like a staph infection she has had in the past, and she is getting sinus headaches off and on. She denies any bleeding, she is on Eliquis. In the last 3 to 4 days she has been having burning dysuria and occasional small amounts of hematuria, some frequency and urgency. Feels like she has a UTI. Some bladder pain but no nausea, vomiting. No back pain. No fevers or chills. No syncope or other systemic symptoms. She has not called her ENT about the symptoms. [facility] Medical History (Updated 10/07/24 @ 11:[address] Gene Peterson MD) Neuropathy Migraines Pulmonary embolus Afib Home Medications ???Medication ???Instructions ???Recorded ???Last Taken ???Type hydroxyzine pamoate 25 mg capsule 25 mg PO TID PRN PRN Anxiety 04/02/0812/01/16 History topiramate 100 mg tablet 150 mg PO DAILY 10/20/16 12/09/16 History omeprazole 20 mg capsule,delayed 20 mg PO DAILY 12/08/16 12/10/16 H istory release prochlorperazine maleate 10 mg 10 mg PO TID PRN PRN Nausea 12/04/16 History tablet (Compazine) acetaminophen 500 mg tablet 2 tab PO Q8H PRN Pain #1 TAB 12/11 Unknown Rx ibuprofen 200 mg tablet 2 - 3 mg (0.01 - 0.015 x 200 mg) 0 12/11/16 Unknown Rx PO Q6H PRN Pain #1 TAB oxycodone 5 mg tablet 5 mg PO Q6H PRN PRN Severe Pain Unknown Rx () ##12 apixaban 5 mg tablet (Eliquis) 5 mg PO BID 12/18/16 Unknown Histo ry duloxetine 60 mg capsule,delayed 60 mg PO DAILY 12/18/16 Unknown Hi story release clindamycin HCl 150 mg capsule 300 mg (2 x 150 mg) PO 4X/DAY #80 07/16/17 Unknown Rx caps cefdinir 300 mg capsule 300 mg PO BID #14 caps 10/07/24 Un known Rx mupirocin 2 % topical ointment 1 applic topical BID PRN skin 09/23 11/16 Unknown Rx infection #15 grams Allergy/AdvReac Type Severity Reaction Status Date / Time fluoxetine HCl (From Prozac) Allergy Other Verified 10/07/24 10:02 tree nut Allergy Anaphylaxis Verified 10/07/24 10:02 acetaminophen (From Vicodin) AdvReac Other Verified 10/07/24 10:02 butalbital (From Fioricet) AdvReac Nausea Verified 10/07/24 10:02 caffeine (From Fioricet) AdvReac Nausea Verified 10/07/24 10:02 hydrocodone bitartrate (From AdvReac Other Verified 10/07/24 10:02 Vicodin) latex AdvReac Rash Verified 10/07/24 10:02 onion AdvReac Other Verified 10/07/24 10:02 Surgical History (Updated 10/07/24 @ 10:[address] Gene Peterson MD) H/O gastric bypass Social History Smoking Status: Former smoker ROS ROS ED Constitutional Constitutional ED: Denies chills or fever(s) Eyes Eyes: Denies change in vision or diplopia ENT ENT ED: Reports as per HPI, ear pain bilateral, nose pain and sinus pressure; Denies nasal discharge, rhinorrhea or sore throat Cardiovascular Cardiovascular: Denies chest pain or palpitations Respiratory/Chest Respiratory/Chest: Denies cough or dyspnea Gastrointestinal Gastrointestinal: Reports abdominal pain; Denies diarrhea, nausea or vomiting Genitourinary Genitourinary ED: Reports dysuria, hematuria and urinary frequency Musculoskeletal Musculoskeletal: Denies back pain or neck pain Integumentary Denies abscess or rash Neurologic Neurologic: Denies headache(s), paresthesias or weakness Psychiatric Psychiatric: Denies suicidal thoughts EXAM Physical Exam Const Vital Signs: 10/07/24 09:56 10/07/24 11:41 10/07/24 11:42 Temperature 98.1 F 98.1 F Temperature Source Oral Pulse Rate 122 H 77 Respiratory Rate 18 16 Blood Pressure 92/43 L 120/57 L 120/57 L Blood Pressure Mean 59 78 78 Pulse Ox 100 100 100 Oxygen Delivery Method Room Air Room Air Positive well nourished and well develo (more content not included)... Normal [facility] Epithelial cells.squamous LM Ql (Urine sed)Ordered By: Gene Peterson on 10-07-2024 Epithelial cells.squamous LM.HPF (Urine sed) [#/Area] 0 /[HPF] 5-[address] [facility] Glucose Ql (U)Ordered By: Henri Peterson on 10-07-2024 Urine Glucose (UA) Normal mg/dl Normal [facility] Hyaline casts LM.LPF (Urine sed) [#/Area]Ordered By: Gene Peterson on 10-07-2024 Hyaline casts LM Ql (Urine sed) 0-5 SEEN /lpf 0-[address] [facility] Ketones Test strip Ql (U)Ord ered By: Gene Peterson on 10-07-2024 Ketones Ql (U) 5 mg/dl High Negative [facility] Microscopic analysis of urin e for red blood cells (RBC)Ordered By: Gene Peterson on 10-07-2024 Urine RBC 10-25 SEEN /hpf 0-[address] [facility] Mucus LM Ql (Urine sed)Order ed By: Gene Peterson on 10-07-2024 Mucus Ql (Urine sed) 1+ /hpf [facility] Nitrite Test strip Ql (U)Ord ered By: Gene Peterson on 10-07-2024 Nitrite Ql (U) Positive High Negative [facility] Protein Test strip Ql (U)Ord ered By: Gene Peterson on 10-07-2024 Protein Ql (U) 500 mg/dl High Negative [facility] THERAPY NTon 10-07-2024 THERAPY NT HNO ID: [id number] Author: JACOBO GOULD, SARAH Service: ? Author Type: Physical Therapist Type: Therapy (PT/OT/Speech/Resp) Filed: 10/07/2024 09:06 Note Text: Program_ID:[id number] Access Code: [email or web address] URL: [email or web address]/ Date: 10-07-2024 Prepared By: Jacobo Gould Program Notes Exercises - Supine Cervical Retraction with Towel - 2 x daily - 7 x weekly - 2-3 sets - 10 reps - Shoulder External Rotation and Scapular Retraction with Resistance - 2 x daily - 7 x weekly - 2-3 sets - 10 reps - Upper Trapezius Stretch - 2 x daily - 7 x weekly - sets - 3-4 reps - Gentle Levator Scapulae Stretch - 2 x daily - 7 x weekly - sets - 3-4 reps - Standing Upper Trapezius Mobilization with Small Ball - 1-2 x daily - 7 x weekly - sets - reps Normal [facility] Urinalysis, Completeon 10-07 CAST,HYALINE 0-5 SEEN Normal 0-[address] [facility] Comment on above: Order Comment: ANÍBAL CTOR TO SPECIFY Performed By: #### L 400.0001 #### [facility] [address] [place], [address] RBC 10-25 SEEN Normal 0-[address] [facility] Comment on above: Order Comment: ANÍBAL CTOR TO SPECIFY Performed By: #### L 400.0001 #### [facility] [address] [place], [address] WBC 25-50 SEEN Normal 0-[address] [facility] Comment on above: Order Comment: ANÍBAL CTOR TO SPECIFY Performed By: #### L 400.0001 #### [facility] [address] [place], [address] BACTERIA 2+ /hpf Normal None Seen [facility] Comment on above: Order Comment: ANÍBAL CTOR TO SPECIFY Performed By: #### L 400.0001 #### [facility] [address] [place], [address] CA OX CRYSTAL 1+ /hpf Normal [facility] Comment on above: Order Comment: ANÍBAL CTOR TO SPECIFY Performed By: #### L 400.0001 #### [facility] [address] [place], [address] Mucus Ql (Urine sed) 1+ /hpf Normal [facility] Comment on above: Order Comment: ANÍBAL CTOR TO SPECIFY Performed By: #### L 400.0001 #### [facility] [address] [place], [address] EPI,SQUAMOUS 0 SEEN Normal 5-[address] [facility] Comment on above: Order Comment: ANÍBAL CTOR TO SPECIFY Performed By: #### L [id number] #### [facility] [address] [place], [address] Urine blood detectionOrdered By: Gene Peterson on 10-07-2024 Urine Occult Blood 250 /ul High Negative [facility] Urine clarityOrdered By: Esau Peterson on 10-07-2024 Clarity (U) Sl. Cloudy Clear [facility] Urine color determinationOrd ered By: Gene Peterson on 10-07-2024 Color (U) Yellow Yellow [facility] Urine leukocyte esterase det ection by dipstickOrdered By: Gene Peterson on 10-07-2024 Leukocyte esterase Test strip Ql (U) 500 /ul High Negative [facility] Urine pHOrdered By: Gene Peterson on 10-07-2024 pH (U) 5.0 [pH] 5.0 - 8.[address] [facility] Urine sediment bacteria coun t by microscopy (number/high power field)Ordered By: Gene Peterson on 10-07-2024 Bacteria LM.HPF (Urine sed) [#/Area] 2 /[HPF] None Seen [facility] Urine specific gravity measu rementOrdered By: Gene Peterson on 10-07-2024 Specific gravity (U) [Rel density] 1.020 1.002-1.[address] [facility] Urobilinogen Ql (U)Ordered B y: Gene Peterson on 10-07-2024 Urobilinogen (U) [Mass/Vol] 1 mg/dL High Normal [facility] White blood cell countOrdere d By: Geneerma Peterson on 10-07-2024 Urine WBC 25-50 SEEN /hpf 0-[address] [facility] T-SPOT(R).TBon 10-05-2024 NEGATIVE CONTROL Passed Normal [facility] Comment on above: Performed By: #### 3 [id number] #### [facility]/[address] [place], [place] Operations Assistant: Hardeep Montgomery M.D.,PhD PANEL A SPOT COUNT CORRECTED FOR NEG CONTROL 0 Normal [facility] Comment on above: Performed By: #### 3 [id number] #### [facility]/[place] [id number] [place], [place] Operations Assistant: Hardeep Montgomery M.D.,PhD PANEL B SPOT COUNT CORRECTED FOR NEG CONTROL 0 Normal [facility] Comment on above: Performed By: #### 3 [id number] #### [facility]/[place] [id number] [place] Operations Assistant: Hardeep Montgomery M.D.,PhD POSITIVE CONTROL Passed Normal [facility] Comment on above: Result Comment: For additional information, please refer to [email or web address] (This link is being provided for informational/ educational purposes only.) Performed By: #### 3 [id number] #### [facility]/[place] [facility] [address] [place] Operations Assistant: Hardeep Montgomery M.D.,PhD T-SPOT.TB Negative Normal Negative [facility] Comment on above: Result Comment: A negative test result does not exclude the possibility of exposure to or infection with Mycobacterium tuberculosis (M. tuberculosis). Patients with recent exposure to TB infected individuals exhibiting a negative T-SPOT.TB result should be considered for retesting within 6 weeks or if other relevant clinical symptoms indicate. Results from T-SPOT.TB testing must be used in conjunction with each individual's epidemiological history, current medical status, and results of other diagnostic evaluations. The T-SPOT.TB test is qualitative and results are reported as positive, borderline, or negative, given that the test controls perform as expected. In line with the Centers for Disease Control and Prevention's 2010 recommendation to report quantitative measurements alongside the qualitative result, the laboratory provides spot counts for informational purposes only. The T-SPOT.TB test should not be interpreted as a quantitative test. Performed By: #### 3 [id number] #### [employer] [address] [place], [place] Operations Assistant: Hardeep Montgomery M.D.,PhD MAMMO Ty Breast Screen [place] at 08-19-2024 MAMMO Ty Breast Screen Bilat EXAMINATION: SCREENING BILATERAL BREASTS MAMMOGRAM WITH TOMOSYNTHESIS 08/19/2024 TECHNIQUE: Standard digital mammographic views with tomosynthesis of both breast(s) are submitted for interpretation. CAD was applied. COMPARISON: 04/19/2021 HISTORY: Screening. FINDINGS: BREAST COMPOSITION: There are scattered areas of fibroglandular density. There are no new suspicious abnormal masses, aggressive calcifications or architectural distortion. IMPRESSION: Negative. BIRADS: BIRADS - CATEGORY 1 - NEGATIVE (*) DISCLAIMER: [employer] Recommendations for Breast Cancer Screening for Women of Average Risk* * Women age 40 and older (who have no symptoms) should have an annual mammogram. * Screening with mammography should continue as long as the women is in good health and is willing to undergo additional testing (including biopsy) if an abnormality is detected. * If you are or may be at high risk for breast cancer, you should speak with your doctor to decide if additional screening tests might be right for you. Normal [facility] LEFT FOOT MIN 3Von LEFT FOOT MIN 3V EXAMINATION: THREE XRAY VIEWS OF THE LEFT FOOT 07/31/2024 5:43 pm COMPARISON: None. HISTORY: ORDERING SYSTEM PROVIDED HISTORY: INFECTION TOE FINDINGS: 2nd through 5th digit hammertoe deformities. Mild hallux valgus. No acute fracture. Grny-qh-kbhgutwi degenerative change primarily 1st metatarsophalangeal joint. Small plantar calcaneal spur present. No radiographic evidence of osteomyelitis. Mild soft tissue swelling 1st digit. IMPRESSION: 1. No radiographic evidence of osteomyelitis. 2. Mild soft tissue swelling 1st digit. 3. Degenerative change. Normal [facility] CBC w/Auto Differentialon Basophils Abs. # 0.04 K/uL Normal 0.00-0.10 [facility] Comment on above: Performed By: #### C BCS #### [place] [address] Basophils/100 WBC (Bld) 0.5 % Normal 0.2-1.0 [facility] Comment on above: Performed By: #### C BCS #### [place] [address] Eosinophils (Bld) [#/Vol] 0.20 10*3/uL Normal 0.00-0.20 [facility] Comment on above: Performed By: #### C BCS #### [address] [address] Eosinophils/100 WBC (Bld) 2.7 % Normal 0.9-2.9 [facility] Comment on above: Performed By: #### C BCS #### [place] [id number] Erythrocyte distribution width (RBC) [Ratio] 13.5 % Normal 11.5-14.5 [facility] Comment on above: Performed By: #### C BCS #### [place] [address] [place] [address] Hematocrit (Bld) [Volume fraction] 40.1 % Normal 33.4-46.0 [facility] Comment on above: Performed By: #### C BCS #### [address] [address] Hemoglobin (Bld) [Mass/Vol] 12.0 g/dL Normal 11.1-13.7 [facility] Comment on above: Performed By: #### C BCS #### [address] [address] Imm Grans % 0.30 % Normal 0.00-1.00 [facility] Comment on above: Performed By: #### C BCS #### [address] [address] Imm Grans Absolute # 0.02 K/uL Normal 0.00-0.10 [facility] Comment on above: Performed By: #### C BCS #### [address] [address] Lymphocytes (Bld) [#/Vol] 1.80 10*3/uL Normal 1.30-2.90 [facility] Comment on above: Performed By: #### C BCS #### [address] [address] Lymphocytes/100 WBC (Bld) 24.1 % Normal 17.0-45.5 [facility] Comment on above: Performed By: #### C BCS #### [address] [address] MCH (RBC) [Entitic mass] 27.1 pg Normal 27.0-31.0 [facility] Comment on above: Performed By: #### C BCS #### [facility] [address] [place] [address] MCHC (RBC) [Mass/Vol] 29.9 g/dL Low 33.0-37.0 [facility] Comment on above: Performed By: #### C BCS #### [place] [place] [address] MCV (RBC) [Entitic vol] 90.5 fL Normal 81.0-99.0 [facility] Comment on above: Performed By: #### C BCS #### [place] [place] [address] Monocytes (Bld) [#/Vol] 0.50 10*3/uL Normal 0.30-0.80 [facility] Comment on above: Performed By: #### C BCS #### [facility] [address] [place] [address] Monocytes/100 WBC (Bld) 7.1 % Normal 5.5-11.7 [facility] Comment on above: Performed By: #### C BCS #### [place] [place] [address] Neutrophils Abs. # 4.86 K/uL High 2.20-4.80 [facility] Comment on above: Performed By: #### C BCS #### [place] [place] [address] Neutrophils/100 WBC (Bld) 65.3 % High 43.0-65.0 [facility] Comment on above: Performed By: #### C BCS #### [place] [address] [place] [address] Platelet mean volume (Bld) [Entitic vol] 9.4 fL Normal 7.4-10.4 [facility] Comment on above: Performed By: #### C BCS #### [place] [place] [address] Platelets (Bld) [#/Vol] 238 10*3/uL Normal 148-402 [facility] Comment on above: Performed By: #### C BCS #### [place] [address] [place] [address] RBC (Bld) [#/Vol] 4.43 10*6/uL Normal 3.83-5.19 [facility] Comment on above: Performed By: #### C BCS #### [address] [address] WBC (Bld) [#/Vol] 7.4 10*3/uL Normal 3.6-10.8 [facility] Comment on above: Performed By: #### C BCS #### [address] [address] Comprehensive Metabolic Pane hayley 04-30-2024 Albumin [Mass/Vol] 2.9 g/dL Low 3.4-5.0 [facility] Comment on above: Performed By: #### C MP #### [address] [address] Albumin/Globulin [Mass ratio] 0.7 {ratio} Low 1.1-2.5 [facility] Comment on above: Performed By: #### C MP #### [place] [place] [address] ALP [Catalytic activity/Vol] 187 U/L High 54-112 [facility] Comment on above: Performed By: #### C MP #### [facility] [address] [place] [address] ALT [Catalytic activity/Vol] 20 U/L Normal 13-66 [facility] Comment on above: Performed By: #### C MP #### [facility] [address] [place] [address] Anion gap [Moles/Vol] 11.5 mmol/L Normal 8.0-16.0 [facility] Comment on above: Performed By: #### C MP #### [facility] [address] [place] [address] AST [Catalytic activity/Vol] 16 U/L Normal 3-39 [facility] Comment on above: Performed By: #### C MP #### [facility] [address] [place] [address] Bilirubin [Mass/Vol] 0.20 mg/dL Normal 0.00-0.99 [facility] Comment on above: Performed By: #### C MP #### [facility] [address] [place] [address] Calcium [Mass/Vol] 8.6 mg/dL Normal 8.2-10.0 [facility] Comment on above: Performed By: #### C MP #### [facility] [address] [place] [address] Chloride [Moles/Vol] 106 mmol/L Normal 94-110 [facility] Comment on above: Performed By: #### C MP #### [facility] [address] [place] [address] CO2 [Moles/Vol] 26 mmol/L Normal 21-34 [facility] Comment on above: Performed By: #### C MP #### [facility] [address] [place] [address] Creatinine [Mass/Vol] 0.72 mg/dL Normal 0.51-0.95 [facility] Comment on above: Performed By: #### C MP #### [facility] [address] [place] [address] EGFR Other Races >60 Normal >60 [facility] Comment on above: Performed By: #### C MP #### [facility] [address] [place] [address] GFR/1.73 sq M.predicted among blacks MDRD (S/P/Bld) [Vol rate/Area] mL/min/{1.73_m2} Normal >60 [facility] Comment on above: Result Comment: Real Estate Director liz Kidney Disease less than 60 mL/min/1.73 m2 Kidney Failure less than 15 mL/min/1.73 m2 Average estimated GFR by age: 50-59 years 93 mL/min/1.73 m2 Performed By: #### C MP #### [facility] [address] [place] [address] Globulin (S) [Mass/Vol] 4.5 g/dL Normal 1.5-4.5 [facility] Comment on above: Performed By: #### C MP #### [facility] [address] [place] [address] Glucose [Mass/Vol] 86 mg/dL Normal 65-100 [facility] Comment on above: Performed By: #### C MP #### [facility] [address] [place] [address] Potassium [Moles/Vol] 3.5 mmol/L Normal 3.3-5.1 [facility] Comment on above: Performed By: #### C MP #### [facility] [address] [place] [address] Protein [Mass/Vol] 7.4 g/dL Normal 6.1-8.2 [facility] Rehabilitation Comment on above: Performed By: #### C MP #### [facility] [address] [place] [address] Sodium [Moles/Vol] 140 mmol/L Normal 132-145 [facility] Comment on above: Performed By: #### C MP #### [facility] [address] [place] [address] Urea nitrogen [Mass/Vol] 11.8 mg/dL Normal 3.2-26.9 [facility] Comment on above: Performed By: #### C MP #### [address] [place] [address] Urea nitrogen/Creatinine [Mass ratio] 16 mg/mg Normal 6-20 [facility] Comment on above: Performed By: #### C MP #### [address] [place] [address] Nelsy 12-31-2023 BECKYN Telephone (FLORAD) -- NIVIA HERMOSILLO ([id number]) 1975 F T Date Time Provider Department 12/31/23 TANIKA GONZALEZ During your visit today, we recorded the following information about you: Leydi Dubon MA 12/31/2023 2:01 PM Signed Patient left message stating that she needs a refill on her gabapentin sent to [facility]. Sunitha Alexander MA 12/31/2023 4:25 PM Signed Order attached to a different pharmacy GABRIELLE Duong Leslie, MA 12/31/2023 4:25 PM Signed Addended by: SUNITHA ALEXANDER on: 12/31/2023 04:25 PM Modules accepted: Orders Tanika Gonzalez MD 01/01/2024 8:27 AM Signed Addended by: TANIKA GONZALEZ on: 01/01/2024 08:27 AM Modules accepted: Orders Allergies As of Date: 12/31/2023 Noted Allergy Reaction PEANUTS 09/15/2022 10 - Anaphylaxis ESGIC (BUTALBITAL-ACETAMINOPHEN- C*08/23/2016 14 - Other: See Comments Comments: headache HAZELNUT 11/13/2016 10 - Anaphylaxis KEFLEX (CEPHALEXIN) 07/21/2016 11 - Vomiting LATEX 02/15/2017 14 - Other: See Comments Comments: Break out MACADAMIA NUT OIL 11/13/2016 10 - Anaphylaxis ONION 02/15/2017 14 - Other: See Comments Comments: Dehydrated onion - headaches OXYCODONE 03/20/2018 15 - Contraindication-Medical Vargas* VICODIN TUSS (HYDROCODONE-GUAIFEN*07/21 1 - Mental Status Change Date Reviewed: 10/01/2023 Reviewed by: Sunitha Alexander MA - Fully Assessed Reason for Visit: Patient Question [8747] Order(s):gabapentin (NEURONTIN) 100 mg capsuleTake 1 capsule by mouth three times a day.Disp: 270 capsuleRfl: 3 Prescriptions as of 01/01/2024 - gabapentin (NEURONTIN) 100 mg capsule Take 1 capsule by mouth three times a day. - DUPIXENT SYRINGE 300 mg/2 mL injection - hydrOXYzine pamoate (VISTARIL) 25 mg capsule Take 25 mg by mouth. - omeprazole (PRILOSEC) 40 mg capsule Take 1 capsule by mouth. - Nrbnoaz-Bhlvkvancvfhx-Pqwq eine 250-250-65 mg per tablet Take 1 tablet by mouth. - COSENTYX PEN, 2 PENS, 150 mg/mL - propranolol (INDERAL) 10 mg tablet - ferrous sulfate 325 mg (65 mg iron) EC tablet Take 325 mg by mouth. - omeprazole (PRILOSEC) 20 mg capsule - HUMIRA PEN 40 mg/0.8 mL pnkt - amitriptyline (ELAVIL) 50 mg tablet 75 mg. - Aug Betamethasone Dipropionate (DIPROLENE) 0.05 % ointment apply to affected area twice a day as directed (AVOID FACE, GROIN, UNDERARMS) - Cyanocobalamin 1,000 mcg TbER Take 1 tablet by mouth once daily. - AIMOVIG AUTOINJECTOR, 2 PACK, 70 mg/mL AutoInjector - folic acid 1 mg tablet 1 tablet daily by mouth except day you take methotrexate. - hydrocortisone 2.5 % cream apply twice a day topically to affected areas on face for 2-3 weeks, then weekends only. Repeat every few months for flares - hydrOXYzine pamoate (VISTARIL) 25 mg capsule 3 TIMES DAILY NEEDED PRN For Anxiety - naproxen (NAPROSYN) 500 mg tablet Take 500 mg by mouth twice daily as needed. - topiramate (TOPAMAX) 200 mg tablet Take 200 mg by mouth daily at bedtime. - triamcinolone (KENALOG) 0.1 % lotion APPLY TWICE A DAY TO SCALP NEEDED FOR ITCHING/REDNESS - oxyCODONE (ROXICODONE) 5 mg/5 mL oral solution 1 teaspoon(s) (5 mL) every six(6) hours as needed for pain, by mouth. Earliest Fill Date: 10/25/17 - enoxaparin (LOVENOX) 40 mg/0.4 mL syrg Inject 0.4 mL subcutaneously twice daily. (Inject entire contents of one(1) syringe) - famotidine (PEPCID) 20 mg tablet Take 1 tablet by mouth twice daily. - scopolamine (TRANSDERM-SCOP) 1 mg over 3 days Apply 1 Patch as directed every 72 hours. - ondansetron orally disintegrating (ZOFRAN ODT) 4 mg disintegrating tablet Take 1 tablet by mouth every 8 hours as needed. - methotrexate 2.5 mg tablet Take 15 mg by mouth once each week. - topiramate (TOPAMAX) 100 mg tablet Take 2 nigthly - prochlorperazine (COMPAZINE) 10 mg tablet Take 1 tablet by mouth every 8 hours as needed. - Ketoconazole 1 % sham Apply 1 application to affected area. - albuterol HFA (PROVENTIL HFA) 90 mcg/actuation inhaler Inhale 2 Puffs as instructed every 4 hours as needed (for shortness of breath and wheezing.). - DULoxetine (CYMBALTA) 60 mg capsule Take 120 mg by mouth once daily. - nystatin (MYCOSTATIN) ointment Apply 1 application to affected area twice daily. - hydrOXYzine HCl (ATARAX) 25 mg tablet Take 25 mg by mouth four times daily as needed. Problem List As Of Date 12/31/2023 Noted Resolved Chronic daily headache [R51.9] 07/21/2016 Chronic migraine [[id number]] 07/21/2016 Medication overuse headache [G44.40] 07/21/2016 Morbid obesity due to excess calories (HCC) [E6*07/21/2016 06/22/2018 Preop cardiovascular exam [Z01.810] 02/15/2017 HALIMA (generalized anxiety disorder) [F41.1] 06/11/2017 Moderate episode of recurrent major depressive *06/11/2017 Morbid obesity (HCC) [E66.01] 10/12/2017 06/22/2018 Obesity, Class III, BMI >= 40 E66.01 [E66.01] 11/02/2017 06/22/2018 S/P bariatric s (more content not included)... [facility] BLOOD TB SCREENon 10-04-2023 M. tuberculosis tuberculin stim IFN-g Ql (Bld) Negative [facility] Comment on above: Order Comment: Brett martinez Type: BLOOD SPECIMEN Ordering Facility: External Submitter Address: , , Performed By: #### I NFTBP #### [facility] CLIA [id number] [address] [place] [address] [place] MITOGEN MINUS NIL 0.64 IU/mL Normal >=0.50 [facility] Comment on above: Order Comment: Brett martinez Type: BLOOD SPECIMEN Ordering Facility: External Submitter Address: , , Performed By: #### I NFTBP #### [facility] CLIA [id number] [address] [place] [address] [place] TB GAMMA INTERPRETATION Infection with M. tuberculosis complex is unlikely. If latent tuberculosis infection is highly suspected, a negative result does not rule out the infection. Specimens from immunocompromised patients and those <5 years of age may show false negative results. In case of a contact investigation, please repeat 8-12 weeks after a known exposure. [facility] Comment on above: Order Comment: Speci men Type: BLOOD SPECIMEN Ordering Facility: External Submitter Address: , , Performed By: #### I NFTBP #### [facility] CLIA [id number] [address] [place] [address] OF [facility] TB NIL 0.03 IU/mL Normal <=8.00 [facility] Comment on above: Order Comment: Speci men Type: BLOOD SPECIMEN Ordering Facility: External Submitter Address: , , Performed By: #### I NFTBP #### [facility] CLIA [id number] [address] [place] [address] [place] TB1 AG MINUS NIL 0.00 IU/mL Normal <0.35 [facility] Comment on above: Order Comment: Speci men Type: BLOOD SPECIMEN Ordering Facility: External Submitter Address: , , Performed By: #### I NFTBP #### [facility] CLIA [id number] [address] [place] [address] [place] TB2 AG MINUS NIL <0.00 Normal <0.35 [facility] Comment on above: Order Comment: Speci michelle Type: BLOOD SPECIMEN Ordering Facility: External Submitter Address: , , Performed By: #### I NFTBP #### [facility] CLIA [id number] [address] [place] [address] OF [facility] CNOVon 10-01-2023 CNOV Office Visit (NEUUPD ) -- NIVIA HERMOSILLO ([id number]) 1975 F T Date Time Provider Department 10/01/23 11:45 AM TANIKA GONZALEZ During your visit today, we recorded the following information about you: Pulse Blood pressure Weight Height 72/minute 118/78 90.7 kg 1.676 m Tanika Gonzalez MD 10/01/2023 1:35 PM Signed Referring Provider: No ref. 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 She is a right handed, single woman. She resides with her parents, her daughter, brother, and niece. Patient is independent in her personal care as well as caring for her mother. 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 She does not smoke cigarettes and drinks very little alcohol but does use medical marijuana up to three times daily. She had gastric bypass in 2016. She denies having a history of alcohol abuse. She follows with a counselor for treatment of depression. Patient is taking Gabapentin 100 mg, 1 capsule three times daily with no medication side effects. She says that she does not always get the third dosage but that she has been trying to take it in the morning. Patient states that she had neuropathy prior to having gastric bypass in 2017 but that it did worsen following surgery. She is pleased with how Gabapentin is managing her symptoms and would like to make no changes at this time. I, Sunitha Alexander MA, transcribing for Tanika Gonzalez MD. ALLERGIES Allergen Reactions Peanuts Anaphylaxis Esgic [Butalbital-A* Other: See Comments headache Hazelnut Anaphylaxis Keflex [Cephalexin] Vomiting Latex Other: See Comments Break out Macadamia Nut Oil Anaphylaxis Onion Other: See Comments Dehydrated onion - headaches Oxycodone Contraindication-Medical Surgical Vicodin Tuss [[place]* Mental Status Change PAST MEDICAL HISTORY: PAST MEDICAL HISTORY Diagnosis Date Anxiety Fair control with cymbalta Asthma Atrial fibrillation (HCC) No further episodes Cholelithiasis Depression Dysmenorrhea month long bleeding GERD (gastroesophageal reflux disease) 2 years of therapy Migraines Neuropathy Feet and hands Pulmonary embolism ([facility]) 2016 No preciptating event Urinary, incontinence, stress female VT (ventricular tachycardia) ([facility]) PAST SURGICAL HISTORY Procedure Laterality Date ABLATE HEART DYSRHYTHM 2008,2007 x2 SECTION HX 2001 LAPAROSCOP GASTRIC BYPASS 10/29/2017 REMOVAL GALLBLADDER 03/2020 FAMILY HISTORY Problem Relation Age of Onset other (hidradenitis) Father Cervical Cancer Mother Hypertension Mother Lipids Mother other (anxiety) Brother other (Blood clotting) Maternal Grandmother other (Blood clot) Paternal Aunt SOCIAL HISTORY: Tobacco Use: Quit 07/21/2001. Types: Cigarettes Alcohol Use: Yes (couple drinks a year) Drug Use: Yes (medical-twice daily) Employer And Job Title: No employer specified (CLINICAL CARE MANAGER) Years Of Education Completed: Not specified Marital Status: MEDICATIONS: Current Outpatient Medications Medication Sig DUPIXENT SYRINGE 300 mg/2 mL injection gabapentin (NEURONTIN) 100 mg capsule Take 1 capsule by mouth three times daily for 180 days. hydrOXYzine pamoate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 osseous structures are unremarkable. [facility] [place], Rad Results In - 08/22/2019 2:15 AM EST EXAMINATION: ONE XRAY VIEW OF THE CHEST 08/22/2019 1:55 am COMPARISON: 07/30/2019 HISTORY: chest pain -sharp mid sternal chest pain radiating into back, hx gastric bypass FINDINGS: The cardiac silhouette and mediastinal contours are normal. The lungs are clear. No parenchymal lung infiltrate. No pleural effusion. The visualized osseous structures are unremarkable. IMPRESSION: 1. No acute cardiopulmonary disease. [facility] Basic Metabolic Panel aka Ch em 8on 07-30-2019 Calcium [Mass/Vol] 8.8 mg/dL 8.4 - 10. 4 mg/dL [facility] Chloride [Moles/Vol] 108 mmol/L 96 - 10 9 mmol/L [facility] CO2 [Moles/Vol] 25 mmol/L 22 - 30 mmol/L [facility] Comprehensive metabolic 2000 panel 0.72 mg/dL 0.52 - 1.04 mg/dL [facility] Glucose [Mass/Vol] 86 mg/dL 65 - 100 mg/dL [facility] Potassium [Moles/Vol] 3.8 mmol/L 3.6 - 5.1 mmol/L [facility] Sodium [Moles/Vol] 139 mmol/L 135 - 147 mmol/L [facility] Urea nitrogen [Mass/Vol] 15 mg/dL 8 - 20 mg/dL [facility] CBC without Differentialon 0 07-30-2019 Erythrocyte distribution width (RBC) [Ratio] 12.9 % 11.5 - 14.5 % [facility] Hematocrit (Bld) [Volume fraction] 39.2 % 33.6 - 46.8 % [facility] Hemoglobin (Bld) [Mass/Vol] 12.6 g/dL 11.7 - 15.8 g/dL [facility] MCH (RBC) [Entitic mass] 30.8 pg 27.5 - 32.3 pg [facility] MCHC (RBC) [Mass/Vol] 32.1 g/dL 30.7 - 35.5 g/dl [facility] MCV (RBC) [Entitic vol] 95.8 fL 80.2 - 99 fL [facility] Platelets (Bld) [#/Vol] 178.0 10*3/uL [facility] RBC (Bld) [#/Vol] 4.09 10*6/uL [facility] WBC LM Ql (Sput) 7.6 [facility] GLOMERULAR FILTRATION RATEon 07-30-2019 GFR/1.73 sq M.predicted MDRD (S/P/Bld) [Vol rate/Area] mL/min/{1.73_m2} [facility] Comment on above: To estimate the GFR for Americans, multiply the result provided by 1.21. Population mean GFR = 99 ml/min/1.73 sq.m. for ages 40-49 yrs Five stages of CKD and GFR for each stage: Stage 1 GFR >=90 Stage 2 GFR 60-89 Stage 3 GFR 30-59 Stage 4 GFR 15-29 Stage 5 GFR <15 Magnesiumon 07-30-2019 Magnesium [Mass/Vol] 2.1 mg/dL 1.6 - 2 .3 mg/dL [facility] POCT Urine [place] 07-30-2019 Beta HCG ( test) Ql (U) Negative [facility] Interpretation and review of laboratory results Normal [facility] Field Radio Operator Acceptable pass [facility] X-ray chest PA and lateralon 07-30-2019 EXAMINATION: TWO XRA Y VIEWS OF THE CHEST 07/30/2019 9:26 am COMPARISON: March 18, 2019 HISTORY: preop Patient states that's she is having a heart cath done today, hx of exercise induce asthma, non smoker FINDINGS: The lungs are without acute focal process. There is no effusion or pneumothorax. The cardiomediastinal silhouette is without acute process. The osseous structures are without acute process. [facility] [place], Rad Results In - 07/30/2019 9:50 AM EST EXAMINATION: TWO XRAY VIEWS OF THE CHEST 07/30/2019 9:26 am COMPARISON: March 18, 2019 HISTORY: preop Patient states that's she is having a heart cath done today, hx of exercise induce asthma, non smoker FINDINGS: The lungs are without acute focal process. There is no effusion or pneumothorax. The cardiomediastinal silhouette is without acute process. The osseous structures are without acute process. IMPRESSION: No acute process. [facility] No acute process. [facility] Lexiscan Myoview Stress Test on 07-28-2019 Small area of reversibility in the apical septum. With corresponding wall motion abnormality. Patient reported jaw pain with provocation. No EKG changes of ischemia noncomplex ventricular ectopy noted during infusion. Consider further evaluation with cardiac catheterization if clinically indicated. Bill Pagan MD (Electronically Signed) Final Date: 28 July 2019 16:04 [facility] Myocardial Perfusion Report NIVIA ABDUL Colleen Exam Date: 07/28/2019 12:27 Ordering Phys: LIANNE COPELAND Gender: F Exam Location: [facility] Primary Care Phys: LIANNE COPELAND Age: 44 : 1975 Ht (in): 66 Wt (lb): 195 BSA 2.06 Technologist: CHAVO CURIEL, : SEWER [place] Observed by: SHAHEEN MCDANIELS, EVARISTO / Stress Tech: LENA AVALOS CCEP RN,BSN,CCRN Procedure CPT: Indications: Other, Please Specify in Comments Patient History: ablation,, Cardiac arrhythmia Patient Risk Factors: Sedentery Life Style Cardiac Medications: No BB,,,,,, CCB,,,,,, or nitrates,,,,, Medications in past 24 hours: NONE. STRESS TEST Pharmacologic Protocol: Lexiscan Dose: 0.4 mg Duration (m:s): 04:00 Aminophylline: 75 mg Treadmill Activity: Not Used Resting HR (bpm): 56 Resting BP (mmHg): 119 / 58 MaxPHR: 175 Target HR 149 (bpm): Peak HR (bpm): 97 Peak BP (mmHg): 107 / 54 % MaxPHR: 55 Double Product: [id number] Test Observations: *1* Stress Adequacy: N/A,*2* BP Response: Normal resting BP/Appropriate response Lexiscan,*3* Exercise Tolerance for age: N/A,*4* Cardiac Symptoms: Chest pain, Jaw Pain,*5* Resting ECG: Sinus rhythm,*6* Stress ECG: No abnormal ST/T wave changes with Lexiscan,*7* Arrhythmia: Ventricular premature beats/Rare Reason for Termination: * Protocol complete IMAGE PROTOCOL Rest/Stress 1 Day Radiopharmaceutical Dose (mCi) Imaging Date Imaging Time Inj to Imaging Time (min) Rest: IV Sestamibi 10.8 28-Jul-2019 12:30 80 Stress: IV Sestamibi 33 28-Jul-2019 13:46 60 Post-Injection Exercise: No exercise followed the intravenous injection Stress IV Administration Site: Left Wrist Person Administering: DIANA KRUEGER CNMT Rest IV Administration Site: Left Wrist Person Administering: LIN CASTELAN CNMT Prior Study Date: No previous study for comparison SPECT RESULTS Technical Quality: Excellent Raw Data Analysis: PERFUSION: Small sized, fully reversible, decreased uptake of mild severity in the apex (LAD) segment during post stress images Homogenous normal tracer uptake of the myocardium during rest and stress in all other segments FUNCTIONAL RESULTS (calculated via Gated SPECT) Stress Image LV EF: 57 % Stress EDV: 109 ml EDVI: 53 ml/m TID: 1.14 Stress ESV: 47 ml ESVI: 23 ml/m LV Function & Wall Thickening: Gated images show: - a small sized area of equivocal wall motion in the apex (LAD) segment Right Ventriclar Perfusion & Function: Normal perfusion. Normal uptake. [facility] [place], Rad Results In - 07/28/2019 4:05 PM EST Myocardial Perfusion Report NIVIA ABDUL Exam Date: 07/28/2019 12:27 Ordering Phys: LIANNE COPELAND Gender: F Exam Location: [facility] Primary Care Phys: LIANNE COPELAND Age: 44 : 1975 Ht (in): 66 Wt (lb): 195 BSA 2.06 Technologist: CHAVO CURIEL, : JENS Observed by: SHAHEEN MCDANIELS, EVARISTO / Stress Tech: LENA AVALOS CCEP RN,BSN,CCRN Procedure CPT: Indications: Other, Please Specify in Comments Patient History: ablation,, Cardiac arrhythmia Patient Risk Factors: Sedentery Life Style Cardiac Medications: No BB,,,,,, CCB,,,,,, or nitrates,,,,, Medications in past 24 hours: NONE. STRESS TEST Pharmacologic Protocol: Lexiscan Dose: 0.4 mg Duration (m:s): 04:00 Aminophylline: 75 mg Treadmill Activity: Not Used Resting HR (bpm): 56 Resting BP (mmHg): 119 / 58 MaxPHR: 175 Target HR 149 (bpm): Peak HR (bpm): 97 Peak BP (mmHg): 107 / 54 % MaxPHR: 55 Double Product: [id number] Test Observations: *1* Stress Adequacy: N/A,*2* BP Response: Normal resting BP/Appropriate response Lexiscan,*3* Exercise Tolerance for age: N/A,*4* Cardiac Symptoms: Chest pain, Jaw Pain,*5* Resting ECG: Sinus rhythm,*6* Stress ECG: No abnormal ST/T wave changes with Lexiscan,*7* Arrhythmia: Ventricular premature beats/Rare Reason for Termination: * Protocol complete IMAGE PROTOCOL Rest/Stress 1 Day Radiopharmaceutical Dose (mCi) Imaging Date Imaging Time Inj to Imaging Time (min) Rest: IV Sestamibi 10.8 28-Jul-2019 12:30 80 Stress: IV Sestamibi 33 28-Jul-2019 13:46 60 Post-Injection Exercise: No exercise followed the intravenous injection Stress IV Administration Site: Left Wrist Person Administering: DIANA KRUEGER CNMT Rest IV Administration Site: Left Wrist Person Administering: LIN CASTELAN CNMT Prior Study Date: No previous study for comparison SPECT RESULTS Technical Quality: Excellent Raw Data Analysis: PERFUSION: Small sized, fully reversible, decreased uptake of mild severity in the apex (LAD) segment during post stress images Homogenous normal tracer uptake of the myocardium during rest and stress in all other segments FUNCTIONAL RESULTS (calculated via Gated SPECT) Stress Image LV EF: 57 % Stress EDV: 109 ml EDVI: 53 ml/m TID: 1.14 Stress ESV: 47 ml ESVI: 23 ml/m LV Function & Wall Thickening: Gated images show: - a small sized area of equivocal wall motion in the apex (LAD) segment Right Ventriclar Perfusion & Function: Normal perfusion. Normal uptake. IMPRESSION: Small area of reversibility in the apical septum. With corresponding wall motion abnormality. Patient reported jaw pain with provocation. No EKG changes of ischemia noncomplex ventricular ectopy noted during infusion. Consider further evaluation with cardiac catheterization if clinically indicated. Bill Pagan MD (Electronically Signed) Final Date: 28 July 2019 16:04 [facility] Basic metabolic panelon 10-3 Calcium [Mass/Vol] 8.8 mg/dL 8.4 - 10. 4 mg/dL [facility] Chloride [Moles/Vol] 107 mmol/L 96 - 10 9 mmol/L [facility] CO2 [Moles/Vol] 25 mmol/L 22 - 30 mmol/L [facility] Comprehensive metabolic 2000 panel 0.62 mg/dL 0.52 - 1.04 mg/dL [facility] Glucose [Mass/Vol] 88 mg/dL 65 - 100 mg/dL [facility] Potassium [Moles/Vol] 4.0 mmol/L 3.6 - 5.1 mmol/L [facility] Sodium [Moles/Vol] 139 mmol/L 135 - 147 mmol/L [facility] Urea nitrogen [Mass/Vol] 15 mg/dL 8 - 20 mg/dL [facility] CBC without differentialon 1 Erythrocyte distribution width (RBC) [Ratio] 13.1 % 11.5 - 14.5 % [facility] Hematocrit (Bld) [Volume fraction] 41.5 % 33.6 - 46.8 % [facility] Hemoglobin (Bld) [Mass/Vol] 13.4 g/dL 11.7 - 15.8 g/dL [facility] MCH (RBC) [Entitic mass] 31.5 pg 27.5 - 32.3 pg [facility] MCHC (RBC) [Mass/Vol] 32.3 g/dL 30.7 - 35.5 g/dl [facility] MCV (RBC) [Entitic vol] 97.6 fL 80.2 - 99 fL [facility] Platelets (Bld) [#/Vol] 219.0 10*3/uL [facility] RBC (Bld) [#/Vol] 4.25 10*6/uL [facility] WBC LM Ql (Sput) 8.9 [facility] GLOMERULAR FILTRATION RATEon 04-24-2019 GFR/1.73 sq M.predicted MDRD (S/P/Bld) [Vol rate/Area] mL/min/{1.73_m2} [facility] Comment on above: To estimate the GFR for Americans, multiply the result provided by 1.21. Population mean GFR = 99 ml/min/1.73 sq.m. for ages 40-49 yrs Five stages of CKD and GFR for each stage: Stage 1 GFR >=90 Stage 2 GFR 60-89 Stage 3 GFR 30-59 Stage 4 GFR 15-29 Stage 5 GFR <15 MRI UP EXT JNT LEFT W/O CONo n 12-22-2018 MRI UP EXT JNT LEFT W/O CON [facility] [address] [place] [address] Diagnostic Imaging Report : [id number] Signed Name: NIVIA ABDUL MRUN: [id number] : 1975 Loc: MRI Age / Sex: 43 / F ADM Status: DEP CLI ADM Date: 12/20/18 Room/Bed: Ordering Physician: Howard Barrow DO Procedure: MRI UP EXT JNT LEFT W/O CON Order Number(s): [id number] Ordered Date: 12/20/18 Ordered Time: 1314 EXAMINATION: Noncontrast MRI of the left shoulder: TECHNIQUE: Multiplanar multisequence MRI of the upper left extremity joint without contrast COMPARISON: Left shoulder radiograph report from 07/05/2018 HISTORY: Impingement syndrome. Decreased range of motion. No history of prior left shoulder surgery is provided. FINDINGS: No acute fracture or dislocation of the left shoulder. Mild degenerative change of the acromioclavicular joint with inferior spurring. There is mild degenerative change of the glenohumeral joint without sizable glenohumeral joint effusion. Mild patchy marrow edema at the superolateral margin of the left humeral head. No Hill-Sachs lesion or bony Bankart deformity is demonstrated. No loose intra-articular body or os acromiale. The distal subscapularis tendon is intact. The long head of the biceps tendon is normal in signal and location. No significant rotator cuff muscle atrophy. The distal infraspinatus tendon is intact. There appears to be a focal full-thickness tear of the distal supraspinatus tendon measuring 8 mm in transverse dimension on image 11 of series 6. There is retraction of tendon fibers to the mid left humeral head. The tear is located 9 mm from the attachment at the greater tuberosity. IMPRESSION: No acute fracture of the left shoulder. Mild marrow edema at the superolateral margin of the left humeral head. There is an 8 mm focal full-thickness tear of the distal supraspinatus tendon, located 9 mm from the attachment on the greater tuberosity. The tear measures approximately 8 mm in transverse dimension (image 11; series 6). Mild degenerative change of the acromioclavicular and glenohumeral joints. Dictated By: Rubin Hart DO Dictated Date/Time: 12/22/18912 Signed By: Rubin Hart DO Signed Date/Time: 12/22/18922 Transcribed Date/Time: 12/22/18919 Normal [facility] Auto Diffon 12-24-2017 Basophils Auto #/vol (Bld) 0.1 E3/mcL Normal 0.0-0.2 [facility] Comment on above: Order Comment: Order Added by Discern Expert. Performed By: #### 2 [id number] ####[facility] [address] [place] [address] Basophils/100 WBC Auto (Bld) 0.7 % Normal 0.0-2.0 [facility] Comment on above: Order Comment: Order Added by Discern Expert. Performed By: #### 2 011612 ####[facility] [address]bxEgtu[address] [place] [address] Eos Absolute 0.2 E3/mcL Normal 0.0-0.7 [facility] Comment on above: Order Comment: Order Added by Discern Expert. Performed By: #### 2 605999 ####NEVA [address]azRqku[address] [place] [address] Eosinophils/100 leukocytes 2.9 % Normal 0.0-11.0 [facility] Comment on above: Order Comment: Order Added by Discern Expert. Performed By: #### 2 012655 ####[facility] Q[address]Mdik22[address] [place] [address] Lymphocytes 2.5 E3/mcL Normal 1.2-3.4 [facility] Comment on above: Order Comment: Order Added by Discern Expert. Performed By: #### 2 781926 ####[facility] [address]Otxb64[address] [place] [address] Lymphocytes/100 leukocytes 35.5 % Normal 20.0-55.0 [facility] Comment on above: Order Comment: Order Added by Discern Expert. Performed By: #### 2 811129 ####[facility] [address]Rmac[address] [place] [address] Maverick Absolute 0.4 E3/mcL Normal 0.0-0.7 [facility] Comment on above: Order Comment: Order Added by Discern Expert. Performed By: #### 2 216207 ####NEVA Tas[address]zqz[address] [place] [address] Monocytes/100 leukocytes 5.9 % Normal 0.0-10.0 [facility] Comment on above: Order Comment: Order Added by Discern Expert. Performed By: #### 2 255468 ####[facility] SeoNsdr0238 [place] [address] Neutro Absolute 3.9 E3/mcL Normal 1.4-6.5 [facility] Comment on above: Order Comment: Order Added by Discern Expert. Performed By: #### 2 497569 ####[address]ABrandin [address] [place] [address] Neutro Auto 55.0 % Normal 37.0-75.0 [facility] Comment on above: Order Comment: Order Added by Discern Expert. Performed By: #### 2 354940 ####NEVA [address] [place] [address] CBC w/ Auto Diffon 8 Erythrocyte distribution width Auto Ratio (RBC) 14.6 % High 11.5-14.5 [facility] Comment on above: Performed By: #### 2 171506 ####[address] [address] [place] [address] Erythrocytes (RBC) 4.43 E6/mcL Normal 3.90-5.40 [facility] Comment on above: Performed By: #### 2 948362 ####[address]VA [address] [place] [address] Hematocrit (HCT) 40.9 % Normal 36.0-48.0 [facility] Comment on above: Performed By: #### 2 689401 ####[address] [place] [address] Hemoglobin mass conc (Bld) 13.4 g/dL Normal 12.0-16.0 [facility] Comment on above: Performed By: #### 2 643279 ####[address] [place] [address] MCH 30.2 pg Normal 27.0-31.0 [facility] Comment on above: Performed By: #### 2 211298 ####[address] [place] [address] MCHC mass conc (RBC) 32.7 g/dL Low 33.0-37.0 [facility] Comment on above: Performed By: #### 2 505513 ####[address] [place] [address] MCV 92.3 fL Normal 78.0-100.0 [facility] Comment on above: Performed By: #### 2 074432 ####[address] [place] [address] Platelet mean volume (PMV) 9.0 fL Normal 7.4-11.0 [facility] Comment on above: Performed By: #### 2 106278 ####[facility] [address]Ed[address] [place] [address] Platelets 227 E3/mcL Normal 130-400 [facility] Comment on above: Performed By: #### 2 442702 ####[address] [place] [address] WBC (Leukocytes) 7.1 E3/mcL Normal 3.6-11.0 [facility] Comment on above: Performed By: #### 2 320263 ####[address] [place] [address] CMPon 12-24-2017 Alanine aminotransferase (ALT) 24 Int._Unit/L Normal 10-40 [facility] Comment on above: Performed By: #### 2 130309 ####[facility] [address]Moix[address] [place] [address] Albumin 3.7 g/dL Normal 3.2-5.0 [facility] Comment on above: Performed By: #### 2 315650 ####[facility] [address] [place] [address] Albumin/Globulin Ratio 1.2 {ratio} Normal 1.1-1.9 [facility] Comment on above: Performed By: #### 2 180573 ####[facility] [address]hs[address] [place] [address] Alk Phos 88 Int._Unit/L Normal 42-121 [facility] Comment on above: Performed By: #### 2 929698 ####[facility] [address] [place] [address] Aspartate aminotransferase (AST) 23 Int._Unit/L Normal 10-42 [facility] Comment on above: Performed By: #### 2 617799 ####[facility] [address]pcu[address] [place] [address] Bili Total 0.4 mg/dL Normal 0.2-1.0 [facility] Comment on above: Performed By: #### 2 415504 ####[address] [address] [place] [address] BUN/Creatinine Ratio 15.0 ratio Normal 5.4-30.0 [facility] Comment on above: Performed By: #### 2 575135 ####NEVA [address]ved[address] [place] [address] Creatinine 0.8 mg/dL Normal 0.6-1.3 [facility] Comment on above: Performed By: #### 2 340936 ####[facility] [address]dsx[address] [place] [address] Globulin 3.2 g/dL Normal 2.0-4.0 [facility] Comment on above: Performed By: #### 2 695827 ####[facility] [address]Flwe[address] [place] [address] Protein 6.9 g/dL Normal 6.4-8.3 [facility] Comment on above: Performed By: #### 2 502548 ####NEVABrandin [address]wf[address]svh[address] [place] [address] Urea nitrogen 12 mg/dL Normal 7-18 [facility] Comment on above: Performed By: #### 2 141836 ####NEVABrandin [address] [place] [address] Calcium 8.9 mg/dL Normal 8.4-10.2 [facility] Comment on above: Performed By: #### 2 015102 ####NE[facility]ABrandin [address] [place] [address] Chloride 111 mmol/L High 98-107 [facility] Comment on above: Performed By: #### 2 066279 ####NEVABrandin [address]dlDcxt[address] [place] [address] CO2 21.2 mmol/L Low 24.0-30.0 [facility] Comment on above: Performed By: #### 2 224457 ####NEVABrandin [address] [place] [address] Glucose mass conc 105 mg/dL High 70-99 [facility] Comment on above: Performed By: #### 2 371091 ####NEVABrandin [address]om[address] [place] [address] Potassium molar conc 3.5 mmol/L Normal 3.5-5.1 [facility] Comment on above: Performed By: #### 2 801237 ####NEVABrandin [address]hbAlpz[address] [place] [address] Sodium 140 mmol/L Normal 136-145 [facility] Comment on above: Performed By: #### 2 245851 ####NEVA [address]let[address] [place] [address] eGFRon 12-24-2017 eGFR (non-black) mL/min/{1.73_m2} Normal [facility] Comment on above: Order Comment: Order added by Discern Expert. Performed By: #### 2 061584 ####NEVA [address] [place] [address] CASE MGT INIT ASSESon 2017 CASE MGT INIT ASSES HNO ID: [id number] thor: Alannah Gary ([facility])Service: Care ManagementAuthor Type: Social WorkerType: Care Mgt Initial AssessmentFiled: 10/31/2017 10:13 AMNote Text:CARE MANAGEMENT: ASSESSMENT AND DISCHARGE PLANSERVICE DATE: 10/31/2017SERVICE TIME: 10:00 AMPRIMARY CARE PHYSICIAN:Juan Carpenter (Octavio) AIVVNGTQT STATUS: InpatientMEDICAL:Patient/R epresentative Stated Goals:To have reduction in symptomsTo improve my functional statusTo reach goal weight of 200#Health Insurance: [place] MEDICAIDHealth Issues Impacting Discharge Plan: NoneLast Admission Date: noneIs this Within the Past 30 days? NoAdvance Directive:Current Advance Directive: NoneCare Atmospheric Scientist Assisted with AD Completion: (Provided Documentation andeducation for potential completion by Pt.)Health Literacy:1. How often do you need to have someone help you when you readinstructions, pamphlets, or other written material from your doctor orpharmacy? Never - 12. How confident are you filling out medical forms by yourself? Extremely- 1If Patient scores > 3 on either question, the following interventions wereput into place:Patient did not score > 3FUNCTIONAL AND COGNITIVE/BEHAVIORALPRIOR TO ADMISSION:Baseline Mental Status: Alert AND Oriented, Person, Place , Time andSituationFunctional Status: IndependentDoes Patient Currently Receive Any Community Services or Home Care? NoneEquipment Prior to Admission: Aerosols/Intermittent positivebreathing/Respirat ory TreatmentsHas the Patient Been in a Alf Facility in the Past 30 days? NoSOCIAL:Living Arrangement: HomeLives With: Spouse, Mother, Father and DaughterFinancial Resources: Unemployed and Spouse worksPrimary Contact: Extended Emergency Contact InformationPrimary Emergency Contact: Elio Hermosillo Lgzvad Pusvjhwx: BrotherSupportive: YesOther Important Patient Contacts: NoneCaregiver Assessment:Caregiver is ready, willing and able to meet the patient's needs asrecommended by the inter-professional team? No Caregiver NeededPatient's transition needs and plan for meeting these needs: Home w/selfcareDoes the patient have an acute stroke diagnosis, or has the patient had astroke during this admission? NoMedication Adherence:I am convinced of the importance of my prescription medication: Agreecompletely - 0I worry that my prescription medication will do more harm than good to meDisagree mostly - 0I feel financially burdened by my cir-dx-xmppxf expenses for myprescription medication: Disagree mostly -0Patient is categorized as low risk < 2Are you interested in bedside delivery of your medications? No - Pt medsfilled PTAFood Concerns:In the Last Month, Have You had Trouble Getting Food? No trouble gettingfoodDuring the Last Month, Have You Worried Whether Your Food Would Run OutBefore You Had Enough Money to Buy More? NoIs the Patient Psychosocially Complex? NoASSESSMENT AND PLAN:Medical Needs: 2 or more chronic diseases and ObesityPsychosocial Needs: Mental Health Diagnosis: MDD/GADFREEDOM OF CHOICE EXPLAINED:Yes Pt. Nivia Benitezreference: Home w/self carePOTENTIAL TRANSITION PLANSHomeCMSW met with Pt bedside. Pt AANDOx4. LAPAROSCOPIC GASTRIC RESTRICTIVESURG W/ BYPASS AND ALE-EN-Y. CM introduced self and role of CM. Per Ptshe lives home w/Mom AND Dad AND 16 yo dtr. Pt IPTA w/ADL's. Per Pt [place] in [place]. CM reviewed AD and provided packet for Ptconsideration to complete. CM discussed w/nursing. Pt medically clearedfor d/c today, Per Pt her brother will be transporting her home.SIGNATURE: NATALIE Gabriel PATIENT NAME: Nivia RicoATE: October 31, 2017 : 10:00 AM PAGER/CONTACT #: [phone] [facility] CNDSon 10-31-2017 CNDS HNO ID: [id number] thor: Bonita Jaramillo (Res), MDService: General SurgeryAuthor Type: ResidentType: Discharge SummariesFiled: 10/31/2017 12:40 PMNote Text:DISCHARGE SUMMARYPATIENT NAME: Nivia Abdul ADMISSION DATE: 10/29/2017MRN: [id number] DISCHARGE DATE: 10/31/2017Attending: Jayde Adams AReason for Hospitalization: Morbid obesityPrincipal Problem: Morbid obesity (HCC)Resolved Problems: * No resolved hospital problems. *Operations During Hospitalization: Procedure(s) and Anesthesia Type: * LAPAROSCOPIC GASTRIC RESTRICTIVE SURG W/ BYPASS AND ALE-EN-Y [facility] OPERATIVE NOon 10-31-2017 OPERATIVE NO HNO ID: [id number] thor: Jayde Adams AService: General SurgeryAuthor Type: PhysicianType: Operative ReportFiled: 11/02/2017 7:57 AMNote Text:OPERATIVE/PROCEDURE REPORTLOG ID: [id number]/Procedure Date: 10/29/2017Incision/Procedure Start Time: 10:57 AMIncision Close/Procedure End Time: 12:37 PMSurgeon(s)/Proceduralist (s) and Cupola Liner(s):Surgeon(s) and Role: * Jayde Adams - Primary * Oneida Ram (Fel) - Fellow * Aminah Salmeron) Lionel Hilton MD - Resident - AssistingPlease note due to the complex nature of this advanced laparoscopicprocedure, Dr. Ram' presence was requested, as there were no capableavailable residents.Procedure(s):- Laparoscopic Ale en Y gastric bypass- EGD- TAP blocksAnesthesia: GeneralPre-Op/Pre-Procedur e Diagnosis:- Morbid obesity with a BMI of 53 and weight related comorbiditiesincluding Asthma, Afib, GERD, Prior PE, MigrainesPost-Op/Post-Proc edure Diagnosis:- SameOperative Indication:Nivia Abdul is a 42 y/o patient who was evaluted at [facility] for management of morbid obesity andweight related comorbidities including Asthma, Afib, GERD, Prior PE,Migraines. The patient was considered a good candidate for bariatricsurgery.Operative Findings:- Operation completed laparoscopically. 150 cm antecolic-antegastric Rouxlimb, 50 cm biliopancreatic limb, and 15 mL gastric pouch.- Endoscopic leak test performed and negativeOperative Procedure:Informed consent was obtained. The patient was taken to the main operatingroom and a identified by name, MRN, and date of . A sign in huddlewas done. The patient was then placed under general anesthesia. Theabdomen was prepped and draped in a sterile fashion. A Veress needle wasused to establish pneumoperitoneum through a left upper quadrant incision.A 5-mm optical trocar was placed through the same incision and visualaccess to the peritoneal cavity was obtained. Remaining trocars wereplaced in the standard position under direct vision. Bilateral TAP blockswere placed using Exparel and Marcaine. The ligament of Treitz was easilyidentified and the small bowel divided 50 cm distal to the ligament ofTreitz. A pang load of the stapler was used to divide the bowel and thenthe mesentery was divided with the Ligasure device. The Ale limb wasmarked with a suture. A 150 cm Ale limb was measured and approximated tothe end of the biliopancreatic limb. Adjacent enterotomies were createdwith hook cautery and a pang load of the stapler was used to create arexl-zt-ivlv anastomosis. The common opening was closed with a transversefiring of the stapler and reinforcement stitches were placed at both endsof the anastomosis. The mesenteric defect was closed with running 2-0Surgidac suture. The omental split was then completed with the Ligasure.The liver retractor was placed. The patient was put in steep reverseTrendelenburg position and the pars flaccida was opened. The lesseromentum was then divided with the Ligasure device and the purple loads ofthe stapler were used to create a proximal gastric pouch up to the angleof His. The pouch was mobilized off of the left doris of the diaphragm andthe upper one-third of the pouch was oversewn with imbricating suture of2-0 Surgidac. Once this was completed, the Ale limb was brought up in theantecolic-antegastric position sewn to the posterior gastric pouch withrunning 2-0 Surgidac suture. Adjacent enterotomy and gastrotomy werecreated with hook cautery and the purple load of the stapler was used tocreate a 1.5 cm linear stapled anastomosis. The common opening was closedwith a running 2-0 Polysorb suture. Prior to completion, the endoscope wasadvanced and the tip positioned in the Ale limb.The running stitch wasthen tied down over an endoscope and an anterior layer was constructedusing 2-0 Surgidac to complete the 2-layer anastomosis. The bowel clampwas placed on the Ale limb. The endoscope was used to provide airinsufflation and a leak test was performed, which was negative for any airleaks and the endoscopic view was normal. The mesenteric defect was thenclosed behind the Ale limb and approximated the Ale limb mesentery tothe mesocolon up to the gastric remnant. The omentum was then sewnanteriorly over the gastrojejunostomy. The 12-mm trocar sites were closedwith #0 Vicryl suture using the Jerry-Whitney suture passer and thefinal inspection for hemostasis was good. Sponge and needle counts werecorrect. The trocars were removed under direct vision and the abdomendesufflated. Fascial sutures were tied down. Skin incisions were closedwith 4-0 Monocryl. Dressings were applied. The patient tolerated theprocedure well, was awakened, extubated in the operating room, and takento recovery room in stable condition.Estimated Blood Loss: 25 mlsSpecimens:- NoneImplantable Devices: NoneDrains:- NoneComplications: NoneFellow portions of the GJ, under direct supervision and the remainder ofthe procedure was performed by the primary surgeon/proceduralist withassistance.Dr. Adams was scrubbed the entire case.SIGNATURE: Jayde Adams MD PATIENT NAME: Nivia ReynanDATE: November 02, 2017 : 7:54 AM PAGER/CONTACT #: [facility] PROGRESSon 05-09-2018 PROGRESS HNO ID: [id number] thor: Madalyn Grimes (Res), MDService: General SurgeryAuthor Type: ResidentType: Progress NotesFiled: 10/31/2017 8:27 AMNote Text:INPATIENT PROGRESS NOTESERVICE DATE: 10/31/2017SERVICE TIME: 6:00 AMPRIMARY SERVICE: Blue SurgerySubjectiveAVSS on room [id number] PO + 1887 IV / 1800 UOPSome abdominal pain and nausea yesterdayIncreased PO intake overnight+OOBCurrent hospital medications:0.9% NaCl 2-10 mL 2-10 mL INTRAVENOUS q 12 Hscopolamine 1 mg over 3 days 1 Patch (TRANSDERM-SCOP) 1 Patch TRANSDERMALq 72 HRscopolamine - REMOVE PATCH OTHER q 72 HRscopolamine - VERIFY patch OTHER q 8 HoxyCODONE 5-10 mg oral liquid (ROXICODONE) 5-10 mg ORAL q 4 H PRNondansetron orally disintegrating 4 mg tab(s) (ZOFRAN ODT) 4 mg ORAL q 6 Htopiramate 200 mg tab(s) (TOPAMAX) 200 mg ORAL DAILY (7 PM)DULoxetine 60 mg cap(s) (CYMBALTA) 60 mg ORAL DAILYenoxaparin 40 mg injection (LOVENOX) 40 mg SUBCUTANEOUS q 12 HRlactated ringers infusion 150 mL/hr INTRAVENOUS CONTINUOUSHYDROmorphone 0.5 mg injection (DILAUDID) 0.5 mg INTRAVENOUS q 4 H PRNprochlorperazine 5 mg injection (COMPAZINE) 5 mg INTRAVENOUS q 6 H PRNacetaminophen 1,000 mg CUP (TYLENOL) 1,000 mg ORAL q 6 HObjectivePHYSICAL EXAM:BP 124/69 Pulse 86 Temp (Src) 98.2 (Oral) Resp 16 Ht 5' 6 (1.68m) Wt 328 lb (148.8kg) SpO2 93% BMI 52.97 kg/(m2).Gen: INADNeuro: AAO z8Agitj: nonlabored breathingAbd: soft, nd, ntDATA:Diagnostic tests reviewed for today's visit:Most recent labs and imaging results.Assessment/Plan42 year old female POD2 s/p LRYGB-discharge once tolerating adequate PO, likely in afternoon today-already has post-hospitalization Lovenox script filledMedication and Non-Pharmacologic VTE Prophylaxis/Anticoagulants Anticoagulant AND Antiplatelet Medications Start Dose Route Frequency Ordered Stop 10/29/17 2100 enoxaparin 40 mg injection (LOVENOX) (Surgical ModerateRisk ) 40 mg SUBCUTANEOUS EVERY 12 HOURS 10/29/17 1419 --10/29/17 1430 pneumatic compression stockings (ks,tx)10/29/17 0845 pneumatic compression stockings ([place])VTE Prophylaxis: VTE prophylaxis appropriateSIGNATURE: Madalyn Grimes MD PATIENT NAME: Nivia RicoATE: October 31, 2017 : 8:26 AM PAGER: [phone] Normal [facility] Basic Metabolic Panlon 10-30 Anion gap 17 mmol/L Normal 03-12 [facility] Comment on above: Performed By: #### T SCR30 ####[place] [id number] Calcium 9.1 mg/dL Normal 8.5-10.5 [facility] Comment on above: Performed By: #### T SCR30 ####[place] [phone] Chloride 107 mmol/L Normal 98-110 [facility] Comment on above: Performed By: #### T SCR30 ####[place] [id number] CO2 20 mmol/L Low 23-32 [facility] Comment on above: Performed By: #### T SCR30 ####[place] [phone] Creatinine 0.78 mg/dL Normal 0.70-1.40 [facility] Comment on above: Performed By: #### T SCR30 ####[place] [phone] eGFR (non-black) mL/min/{1.73_m2} Normal >60 [facility] Comment on above: Performed By: #### T SCR30 ####[place] [id number] Glucose mass conc 91 mg/dL Normal 65-100 [facility] Comment on above: Performed By: #### T SCR30 ####[place] [phone] Potassium molar conc 4.1 mmol/L Normal 3.5-5.0 [facility] Comment on above: Performed By: #### T SCR30 ####[place] [phone] Sodium 144 mmol/L Normal 132-148 [facility] Comment on above: Performed By: #### T SCR30 ####[place] [id number] Urea nitrogen 5 mg/dL Low 8-25 [facility] Comment on above: Performed By: #### T SCR30 ####[place] [phone] CBCon 10-30-2017 Erythrocyte distribution width Auto Ratio (RBC) 13.9 % Normal 11.5-15.0 [facility] Comment on above: Performed By: #### T SCR30 ####[place] [id number] Erythrocytes (RBC) 4.36 10*6/uL Normal 3.90-5.20 [facility] Comment on above: Performed By: #### T SCR30 ####[place] [id number] Hematocrit (HCT) 41.6 % Normal 36.0-46.0 [facility] Comment on above: Performed By: #### T SCR30 ####[place] [phone] Hemoglobin mass conc (Bld) 13.1 g/dL Normal 11.5-15.5 [facility] Comment on above: Performed By: #### T SCR30 ####[place] [phone] MCH 30.0 pG Normal 26.0-34.0 [facility] Comment on above: Performed By: #### T SCR30 ####[place] [phone] MCHC mass conc (RBC) 31.5 g/dL Normal 30.5-36.0 [facility] Comment on above: Performed By: #### T SCR30 ####[place] [phone] MCV 95.4 fL Normal 80.0-100.0 [facility] Comment on above: Performed By: #### T SCR30 ####[place] [phone] Platelet mean volume (PMV) 10.4 fL Normal 9.0-12.7 [facility] Comment on above: Performed By: #### T SCR30 ####[place] [phone] Platelets 225 10*3/uL Normal 150-400 [facility] Comment on above: Performed By: #### T SCR30 ####[place] [phone] WBC (Leukocytes) 10.16 10*3/uL Normal 3.70-11.00 [facility] Comment on above: Performed By: #### T SCR30 ####[place] [phone] CBC and Differentialon 10-30 Abs Baso <0.03 Normal <0.11 [facility] Comment on above: Performed By: #### T SCR30 ####[place] [phone] Abs Maverick 0.33 k/uL Normal <0.87 [facility] Comment on above: Performed By: #### T SCR30 ####[phone] Abs Neut 7.93 k/uL High 1.45-7.50 [facility] Comment on above: Performed By: #### T SCR30 ####[place] [phone] Basophils/100 WBC Auto (Bld) 0.1 % Normal [facility] Comment on above: Performed By: #### T SCR30 ####[place] [address] DTYPE Auto Diff Normal [facility] Comment on above: Performed By: #### T SCR30 ####[place] [id number] Eosinophils 10*3/uL Normal <0.46 [facility] Comment on above: Performed By: #### T SCR30 ####[place] 1432210 Eosinophils/100 leukocytes 0.0 % Normal [facility] Comment on above: Performed By: #### T SCR30 ####[place] [address] Erythrocyte distribution width Auto Ratio (RBC) 13.7 % Normal 11.5-15.0 [facility] Comment on above: Performed By: #### T SCR30 ####[address] Erythrocytes (RBC) 4.31 10*6/uL Normal 3.90-5.20 [facility] Comment on above: Performed By: #### T SCR30 ####[place] [id number] Hematocrit (HCT) 40.5 % Normal 36.0-46.0 [facility] Comment on above: Performed By: #### T SCR30 ####[address] Hemoglobin mass conc (Bld) 13.2 g/dL Normal 11.5-15.5 [facility] Comment on above: Performed By: #### T SCR30 ####[place] [phone] Lymphocytes 0.96 10*3/uL Low 1.00-4.00 [facility] Comment on above: Performed By: #### T SCR30 ####[place] [phone] Lymphocytes/100 leukocytes 10.4 % Normal [facility] Comment on above: Performed By: #### T SCR30 ####[place] [phone] MCH 30.6 pG Normal 26.0-34.0 [facility] Comment on above: Performed By: #### T SCR30 ####[place] [phone] MCHC mass conc (RBC) 32.6 g/dL Normal 30.5-36.0 [facility] Comment on above: Performed By: #### T SCR30 ####[place] [phone] MCV 94.0 fL Normal 80.0-100.0 [facility] Comment on above: Performed By: #### T SCR30 ####[place] [phone] Monocytes/100 leukocytes 3.6 % Normal [facility] Comment on above: Performed By: #### T SCR30 ####[place] [phone] Neutrophils/100 WBC Auto (Bld) 85.9 % Normal [facility] Comment on above: Performed By: #### T SCR30 ####[place] [phone] Platelet mean volume (PMV) 10.3 fL Normal 9.0-12.7 [facility] Comment on above: Performed By: #### T SCR30 ####[place] [phone] Platelets 235 10*3/uL Normal 150-400 [facility] Comment on above: Performed By: #### T SCR30 ####[place] [phone] WBC (Leukocytes) 9.23 10*3/uL Normal 3.70-11.00 [facility] Comment on above: Performed By: #### T SCR30 ####[place] [phone] NURSING PROGon 10-30-2017 NURSING PROG HNO ID: [id number] thor: Kat Boland (Rn), RNService: Stan Type: Registered NurseType: Nursing Progress NoteFiled: 10/30/2017 10:36 AMNote Text: Nursing Progress NotePatient Name: Nivia ReynanMRN: [id number] Location: Daily Note:Pt A+Ox3, pleasant. Abdominal lap sites VICE PRINCIPAL w/ skin glue, no drainage.Abdomen soft and tender, +Flatus, -BM. Diet advanced to bariatric phase2, pt tolerating very small amounts PO. IVF LR @ 150 ml/hr infusing.Voiding freely, clear yellow urine. Sinus rhythm on sanding machine tender,tachycardic with ambulation. Oxygen saturation adequate on RA. Medicatedfor c/o pain with oxycodone PRN and routine tylenol. IPC's intactbilaterally. IS use encouraged. Pt ambulating halls with minimal assist. Pt going home on lovenox injections BID, education complete and pt wasable to correctly self-administer AM dose of lovenox. Spouse at bedside.Will continue w/ POC.This note was completed by: Kat Boland RN [facility] NURSING PROG HNO ID: [id number] thor: Ginna Waite (Rn), RNService: (none)Author Type: Registered NurseType: Nursing Progress NoteFiled: 10/29/2017 11:32 PMNote Text: Nursing Progress NotePatient Name: Nivia ReynanMRN: [id number] Location: /OR-[id number]-70 2330 Patient assisted to bathroom with one assist and voided clearyellow urine. Ambulated around the entire POD twice with one assist, gaitsteady, patient denies dizziness or lightheadedness. Patient reports thatshe passed some gas earlier in the shift.This note was completed by: Ginna Waite RN [facility] PROGRESSon 10-30-2017 PROGRESS HNO ID: [id number] thor: Aminah Temple), MDService: General SurgeryAuthor Type: ResidentType: Progress NotesFiled: 10/30/2017 7:16 AMNote Text:SURGICAL SERVICES PROGRESS NOTESERVICE DATE: 10/30/2017SERVICE TIME: 7:15 AMSubjectiveNo acute issues overnightPain well controlledNo Nauseas/Vomiting. Tolerated 450cc yesterday- Flatus/- BMVoiding freelyAmbulatingCuosteopathic hospital of rhode island medications:0.9% NaCl 2-10 mL 2-10 mL INTRAVENOUS q 12 Hscopolamine 1 mg over 3 days 1 Patch (TRANSDERM-SCOP) 1 Patch TRANSDERMALq 72 HRscopolamine - REMOVE PATCH OTHER q 72 HRscopolamine - VERIFY patch OTHER q 8 HoxyCODONE 5-10 mg oral liquid (ROXICODONE) 5-10 mg ORAL q 4 H PRNondansetron orally disintegrating 4 mg tab(s) (ZOFRAN ODT) 4 mg ORAL q 6 Htopiramate 200 mg tab(s) (TOPAMAX) 200 mg ORAL DAILY (7 PM)DULoxetine 60 mg cap(s) (CYMBALTA) 60 mg ORAL DAILYenoxaparin 40 mg injection (LOVENOX) 40 mg SUBCUTANEOUS q 12 HRlactated ringers infusion 150 mL/hr INTRAVENOUS CONTINUOUSHYDROmorphone 0.5 mg injection (DILAUDID) 0.5 mg INTRAVENOUS q 4 H PRNprochlorperazine 5 mg injection (COMPAZINE) 5 mg INTRAVENOUS q 6 H PRNacetaminophen 1,000 mg CUP (TYLENOL) 1,000 mg ORAL q 6 HObjectivePHYSICAL EXAM:BP 147/77 Pulse 86 Temp 36.6 ?C (97.9 ?F) (Axillary) Resp 17 Ht 167.6 cm (5' 6) Wt (!) 148.8 kg (328 lb) SpO2 96% BMI 52.94kg/m?10/29 0700 - 10/30 0659In: 4248 [PO:450; IV:3673]Out: 2300 [Urine:2300]Gen: NADAbd: SNTND, incision is CDIExt: No edemaLABSCBC, Coags, BMP, Mg, PhosRecent Labs 523 324WBC 10.16 9.23HB 13.1 13.2HCT 41.6 40.5PLT 225 235Liver Function, Amylase, AND LipaseAssessment/Plan42 year old female POD 1 Day Post-Op S/P LRYGB who is recovering well inRNF- Pain: continue tylenol, roxicodone, dilaudid prn- CV: heme stable- Resp: pulmonary toilet, encourage IS- GI: advance to phase 2 diet, monitor bowel function- Renal: good UOP- ID: no issues- OOB as tolerated- DVT prophylaxis: SCDs, subq lovenox - will go home on prophy lovenox for2 weeks- Dispo possible home today if taking enough PO Normal [facility] PT EDon 10-30-2017 PT ED HNO ID: [id number] thor: Aziza Craig (Diet-T)Service: Nutrition TherapyAuthor Type: Dietetic TechnicianType: Patient EducationFiled: 10/30/2017 11:49 AMNote Text:NUTRITION PATIENT EDUCATIONTOPIC: Survival Skills: DietPATIENT NAME: Nivia Macias MaribellnMRN: [id number] DATE: October 30, 2017Diagnosis: ADULT: ObesityREADINESS TO LEARNMotivation to Learn: InterestedFamily Support: High - Very involved in pt careInstruction Provided to: Patient and family memberFactors Affecting Learning: NonePhysical Limitations Affecting Learning: NoneLEARNING RESPONSEPatient / Family Response: Verbalizes understanding of NutritionGuidelines after Weight Loss Surgery: Diet phases and complicationprevention, foods to avoid, allowed foods and the importance of adequateprotein and fluid intake.Method of Instruction: Written instruction - handoutsVerbal instructionInstructional Aids Used: NASupplemental Material Provided to Patient: Bariatric Surgery PostOperative CareReferral (Recommendation): Nutrition - OutpatientMNT Billing Type: Routine Care/15 min 2 richard Pastrana-tPager: [phone] 201711:48 AM [facility] ANES Beckie 10-29-2017 ANES POST HNO ID: [id number] thor: Rl Corea RService: AnesthesiologyAuthor Type: AnesthesiologistType: Anesthesia PostOpFiled: 10/29/2017 1:46 PMNote Text:POST ANESTHESIA EVALUATION NOTESERVICE DATE: 10/29/2017SERVICE TIME: 1:46 PMDOB: 1975Vitals: 837 252 10/29/18125BP: 140/80 143/72 150/61 156/65Pulse: 80 84 81 80Resp: 18 21 14 12Temp: 36.8 ?C (98.2 ?F) 36.2 ?C (97.2 ?F)TempSrc: Temporal ArterySpO2: 97% 98% 100% 96%Validated Vital Signs: YesNo apparent anesthetic complications. The patient is appropriatelyhydrated with stable respiratory and cardiovascular status. Patient hassafe and adequate airway control. The patient has appropriate pain reliefand no significant post operative nausea or vomiting. The patient hasachieved baseline mental status.Further assessment by Anesthesia Service: NoneOther Remarks:SIGNATURE: Rl Corea MD PATIENT NAME: Nivia ReynanDATE: October 29, 2017 : 1:46 PM PAGER/CONTACT #: [phone] [facility] ANES PREOPon 10-29-2017 ANES PREOP HNO ID: [id number] thor: Rl Corea RService: AnesthesiologyAuthor Type: AnesthesiologistType: Anesthesia PreOpFiled: 10/29/2017 9:50 AMNote Text:REGIONAL ANESTHESIOLOGY DAY OF SURGERY NOTEPATIENT NAME: Nivia ReynanMRN: [id number]: 1975Procedure(s) (LRB):LAPAROSCOPIC GASTRIC RESTRICTIVE SURG W/ BYPASS AND ALE-EN-Y [facility] BRIEF OP NOTon 10-29-2017 BRIEF OP NOT HNO ID: [id number] thor: Aminah Temple), MDService: General SurgeryAuthor Type: ResidentType: Brief Op NoteFiled: 10/29/2017 12:43 PMNote Text: BRIEF OPERATIVE NOTEBARIATRIC AND METABOLIC INSTITUTELOG ID: [id number]/PROCEDURE DATE: 10/29/2017INCISION/PROCEDURE START TIME: 10:57 AMINCISION CLOSE/PROCEDURE END TIME: 12:37 PMSURGEON(S) AND REGULATORY TECHNICIAN(S):Surgeon(s) and Role: * Jayde Adams - Primary * Oneida Ram) - Fellow * Aminah Temple Md, MD - Resident - AssistingNo Additional StaffPROCEDURES AND ANESTHESIA:Procedure(s) and Anesthesia Type: * LAPAROSCOPIC GASTRIC RESTRICTIVE SURG W/ BYPASS AND ALE-EN-Y [facility] NURSING PROGon 10-29-2017 NURSING PROG HNO ID: [id number] thor: Sabino Chin), RNService: NursingAuthor Type: Registered NurseType: Nursing Progress NoteFiled: 10/29/2017 5:40 PMNote Text: Nursing Progress NotePatient Name: Nivia ReynanMRN: [id number] Location: [place] [address]/[id number] Transfer Note:Patient transferred into room/unit PK 315. Actions taken: Pt alert andoriented x 3. Surgical incisions intact. Patient has begun Phase 1 ofbariatric diet. Drinking 30cc/hr. Denies any pain at this time. Patienton tele monitor with continuous SPO2 reading. Currently 98% on 3L NC.Will continue to encourage PO intake and ambulate as ordered. Willcontinue to monitor for pain and changes in condition.1720- Pt ambulated up to bathroom with assist of nurse and voided. Ptambulated to chair and resting comfortably. Call Pascual within reach.This note was completed by: Sabino Chin RN [facility] PROGRESSon 10-29-2017 PROGRESS HNO ID: [id number] thor: Madalyn Grimes (Res), MDService: ColorectalAuthor Type: ResidentType: Progress NotesFiled: 10/29/2017 5:48 PMNote Text:Post-Op CheckAVSS on 3L NC60 PO + 1422 IV / 300 UOPSome nausea, no emesisTolerated 2.5 ounces fluidsNo flatusSome burpingWill use CPAP tonight+OOBUsing incentive spirometryPhysical examBP 135/60 Pulse 79 Temp 36.4 ?C (97.5 ?F) (Oral) Resp 18 LhQ766%Gen: INADNeuro: AAO s6Vnrjk: nonlabored breathingAbd: soft, nd, attp. Dressings cdiA/P: 42 year old female POD0 s/p LRYGB-expected [facility] courseDeepa [facility] PGY-3 [facility] PT EDon 10-29-2017 PT ED HNO ID: [id number] thor: Paige Phan (Rn), RNService: NursingAuthor Type: Registered NurseType: Patient EducationFiled: 10/29/2017 9:04 AMNote Text:PATIENT EDUCATION GASTRIC BYPASSPATIENT NAME: Nivia Macias MaribellnMRN: [id number] LOCATION: FV OR POOL/FV OR POOLREADINESS TO LEARNCOGNITIVE ABILITY: Alert and orientedMOTIVATION TO LEARN: InterestedFAMILY SUPPORT: Unable to assess - Family not presentINSTRUCTION PROVIDED TO: PatientPATIENT LEARNS BEST BY: Individual InstructionFACTORS AFFECTING LEARNING: NonePHYSICAL LIMITATIONS AFFECTING LEARNING: NoneLEARNING RESPONSEDIAGNOSIS: ADULT: Well AdultPATIENT/FAMILY RESPONSE: Verbalizes understanding of: PRE-OPERATIVEINSTRUCTIONS- Correct action to take to follow pre-operative instructionsMETHOD OF INSTRUCTION: Individual instructionFOLLOW-UP PLAN: Complete - No need for follow-upINSTRUCTIONAL AIDS USED: NASUPPLEMENTAL MATERIAL PROVIDED TO PATIENT: NoneREFERRAL (RECOMMENDATION): NoneElectronically Signed By: ANG MayorgaATIANGELA EDUCATION TOPIC: PROCEDURE / SURGERY: Pre Procedure Teaching:Surgical Safety PrinciplesPATIENT NAME: Nivia MackalvaradonMRN: [id number] LOCATION: FV OR POOL/FV OR POOLREADINESS TO LEARNCOGNITIVE ABILITY: Alert and orientedMOTIVATION TO LEARN: InterestedFAMILY SUPPORT: Unable to assess - Family not presentINSTRUCTION PROVIDED TO: PatientPATIENT LEARNS BEST BY: Individual InstructionFACTORS AFFECTING LEARNING: NonePHYSICAL LIMITATIONS AFFECTING LEARNING: NoneLEARNING RESPONSEDIAGNOSIS: ADULT: Well AdultPATIENT/FAMILY RESPONSE: Verbalizes understanding of: PRE-OPERATIVEINSTRUCTIONS- Correct action to take to follow pre-operative instructionsMETHOD OF INSTRUCTION: Individual instructionFOLLOW-UP PLAN: Complete - No need for follow-upINSTRUCTIONAL AIDS USED: NASUPPLEMENTAL MATERIAL PROVIDED TO PATIENT: NoneREFERRAL (RECOMMENDATION): NoneElectronically Signed By: Paige Phan RN Normal [facility] Confirm Blood Typeon 018 ABO/RH(D) Positive [facility] Comment on above: Performed By: #### C ONABO ####[place] [address] Performed By: #### T SCR30 ####[place] [address] Type and SCR (30D)on 018 Antibody Screen Negative [facility] Comment on above: Performed By: #### T SCR30 ####[place] [address] Auto Diffon 10-23-2017 Basophils Auto #/vol (Bld) 0.1 E3/mcL Normal 0.0-0.2 [facility] Comment on above: Order Comment: Order added by Discern Expert. Performed By: #### 1 [id number] ####[address] [place] 7153505 Basophils/100 WBC Auto (Bld) 0.8 % Normal 0.0-2.0 [facility] Comment on above: Order Comment: Order added by Discern Expert. Performed By: #### 1 [id number] ####[place] [address] [place] [address] Eos Absolute 0.2 E3/mcL Normal 0.0-0.7 [facility] Comment on above: Order Comment: Order added by Discern Expert. Performed By: #### 1 [id number] ####NE[address]WiuBtzd[address]63 [place] [address] Eosinophils/100 leukocytes 2.5 % Normal 0.0-11.0 [facility] Comment on above: Order Comment: Order added by Discern Expert. Performed By: #### 1 [id number] ####[address]qVknk[address]67 [place] [address] Lymphocytes 2.2 E3/mcL Normal 1.2-3.4 [facility] Comment on above: Order Comment: Order added by Discern Expert. Performed By: #### 1 [id number] ####NEVA [address]zqz39[address] [place] [address] Lymphocytes/100 leukocytes 26.9 % Normal 20.0-55.0 [facility] Comment on above: Order Comment: Order added by Discern Expert. Performed By: #### 1 [id number] ####[address]Sovn8953 [place] [address] Maverick Absolute 0.4 E3/mcL Normal 0.0-0.7 [facility] Comment on above: Order Comment: Order added by Discern Expert. Performed By: #### 1 [id number] ####NEVA TpfHnvo0805 [place] [address] Monocytes/100 leukocytes 5.2 % Normal 0.0-10.0 [facility] Comment on above: Order Comment: Order added by Discern Expert. Performed By: #### 1 [id number] ####NE[address]mgJoqn2822 [place] [address] Neutro Absolute 5.2 E3/mcL Normal 1.4-6.5 [facility] Comment on above: Order Comment: Order added by Discern Expert. Performed By: #### 1 8507833 ####NEVA KtfSero7975 [place] [address] Neutro Auto 64.6 % Normal 37.0-75.0 [facility] Comment on above: Order Comment: Order added by Discern Expert. Performed By: #### 1 7861151 ####NEVA QshYywy9679 [place] [address] CBC w/ Auto Diffon 8 Erythrocyte distribution width Auto Ratio (RBC) 13.8 % Normal 11.5-14.5 [facility] Comment on above: Performed By: #### 1 [id number] ####[address]VA LgsDfkr9956 [place] [address] Erythrocytes (RBC) 4.48 E6/mcL Normal 3.90-5.40 [facility] Comment on above: Performed By: #### 1 3488036 ####[address]wcWinx9680 [place] [address] Hematocrit (HCT) 41.2 % Normal 36.0-48.0 [facility] Comment on above: Performed By: #### 1 [id number] ####NEVA [address]pfKxum0465 [place] [address] Hemoglobin mass conc (Bld) 13.5 g/dL Normal 12.0-16.0 [facility] Comment on above: Performed By: #### 1 9482358 ####NE[place] BatWpjz0385 [place] [address] MCH 30.2 pg Normal 27.0-31.0 [facility] Comment on above: Performed By: #### 1 [id number] ####NEVA MdiSbrc1756 [place] [address] MCHC mass conc (RBC) 32.9 g/dL Low 33.0-37.0 [facility] Comment on above: Performed By: #### 1 [id number] ####[address] QnsVadq7213 [place] [address] MCV 91.9 fL Normal 78.0-100.0 [facility] Comment on above: Performed By: #### 1 [id number] ####NEVA Tr[address]Yegy2971 [place] [address] Platelet mean volume (PMV) 8.1 fL Normal 7.4-11.0 [facility] Comment on above: Performed By: #### 1 [id number] ####NEVA [address]Lbgb2188 [place] [address] Platelets 266 E3/mcL Normal 130-400 [facility] Comment on above: Performed By: #### 1 2298841 ####NEVA FztElcu2239 [place] [address] WBC (Leukocytes) 8.0 E3/mcL Normal 3.6-11.0 [facility] Comment on above: Performed By: #### 1 [id number] ####NEVA [address] [place] [address] CMPon 10-23-2017 Alanine aminotransferase (ALT) 31 Int._Unit/L Normal 10-40 [facility] Comment on above: Performed By: #### 1 7437040 ####[address] [place] [address] Albumin 4.0 g/dL Normal 3.2-5.0 [facility] Comment on above: Performed By: #### 1 5622194 ####[address] [place] [address] Albumin/Globulin Ratio 1.2 {ratio} Normal 1.1-1.9 [facility] Comment on above: Performed By: #### 1 6968695 ####[address] [place] [address] Alk Phos 80 Int._Unit/L Normal 42-121 [facility] Comment on above: Performed By: #### 1 [id number] ####[address] [place] [address] Aspartate aminotransferase (AST) 28 Int._Unit/L Normal 10-42 [facility] Comment on above: Performed By: #### 1 3892082 ####[address] [place] [address] Bili Total 0.6 mg/dL Normal 0.2-1.0 [facility] Comment on above: Performed By: #### 1 [id number] ####[address] [place] [address] BUN/Creatinine Ratio 21.4 ratio Normal 5.4-30.0 [facility] Comment on above: Performed By: #### 1 2492838 ####NEVA XirZlbe5092 [place] [address] Creatinine 0.7 mg/dL Normal 0.6-1.3 [facility] Comment on above: Performed By: #### 1 [id number] ####[address] [place] [address] Globulin 3.4 g/dL Normal 2.0-4.0 [facility] Comment on above: Performed By: #### 1 7217642 ####NEVA [address]uHfgz5653 [place] [address] Protein 7.4 g/dL Normal 6.4-8.3 [facility] Comment on above: Performed By: #### 1 9773293 ####NEVA [address]Kcll[address]958 [place] [address] Urea nitrogen 15 mg/dL Normal 7-18 [facility] Comment on above: Performed By: #### 1 9307789 ####NEVA [address]rpGblv9711 [place] [address] Calcium 9.3 mg/dL Normal 8.4-10.2 [facility] Comment on above: Performed By: #### 1 6375173 ####NEVABrandin RomanRxdHgzr4987 [place] [address] Chloride 107 mmol/L Normal 98-107 [facility] Comment on above: Performed By: #### 1 [id number] ####NEVABrandin RomanWhfLtef6564 [place] [address] CO2 23.2 mmol/L Low 24.0-30.0 [facility] Comment on above: Performed By: #### 1 1097590 ####NEVABrandin [address]GsuRrdx2495 [place] [address] Glucose mass conc 100 mg/dL High 70-99 [facility] Comment on above: Performed By: #### 1 [id number] ####NEVABrandin [address]LnqKcgq2846 [place] [address] Potassium molar conc 3.9 mmol/L Normal 3.5-5.1 [facility] Comment on above: Performed By: #### 1 1109229 ####NEVABrandin [address]OrwHteq1694 [place] [address] Sodium 140 mmol/L Normal 136-145 [facility] Comment on above: Performed By: #### 1 [id number] ####NEVABrandin [address]BweGlwa3053 [place] [address] eGFRon 10-23-2017 eGFR (non-black) mL/min/{1.73_m2} Normal [facility] Comment on above: Order Comment: Order added by Discern Expert. Performed By: #### 2 375204 ####NEVABrandin [address]amaWvqYzer8032 [place] [address] HOSPon 10-12-2017 HOSP Patient:Nivia Abdul MMRN: Height:5' 6(1.676 m)Weight:328 lb (148.78 kg)Outpatient Medications as of 10/29/17:oxyCODONE (ROXICODONE) 5 mg/5 mL oral solutionenoxaparin (LOVENOX) 40 mg/0.4 mL syrgfamotidine (PEPCID) 20 mg tabletscopolamine (TRANSDERM-SCOP) 1 mg over 3 daysondansetron orally disintegrating (ZOFRAN ODT) 4 mg disintegrating tabletmethotrexate 2.5 mg tablettopiramate (TOPAMAX) 100 mg tabletprochlorperazine (COMPAZINE) 10 mg tabletKetoconazole 1 % shamalbuterol HFA (PROVENTIL HFA) 90 mcg/actuation inhalerDULoxetine (CYMBALTA) 60 mg capsulenystatin (MYCOSTATIN) ointmenthydrOXYzine HCl (ATARAX) 25 mg tabletAdmission/Clinic Administered Medications as of 10/29/17:0.9% NaCl 2-10 mLheparin 5,000 Units injectionclindamycin 900 mg in D5W 50 mL (CLEOCIN)scopolamine 1 mg over 3 days 1 Patch (TRANSDERM-SCOP)scopolamin e - REMOVE PATCHscopolamine - VERIFY patchProblem List:Chronic daily headache [R51]Chronic migraine [G43.709]Medication overuse headache [G44.40]Morbid obesity due to excess calories (HCC) [E66.01]Preop cardiovascular exam [Z01.810]HALIMA (generalized anxiety disorder) [F41.1]Moderate episode of recurrent major depressive disorder (HCC) [F33.1]Morbid obesity (HCC) [E66.01]Allergies:Esgic [Butalbital-Acetaminophen- Caff]HazelnutKeflex [Cephalexin]LatexMacadamia Nut OilOnionVicodin Tuss [Hydrocodone-Guaifenesin]D ate Verified: 10/29/17Lab ValuesLab Value Units Date High LowPOTA* 4.0 mmol/L 10/25/2017 5.1 3.7HEMA* 41.8 % 10/25/2017 46.0 36.0Progress Notes (BMI MAIN):Iva Zelaya (Rn), RN 10/26/2017 1:49 PM SignedPt contacted and advised that surgery arrival time is 0830. Pt vuProgress Notes (BMI MAIN):Iva Zelaya (Rn), RN 10/25/2017 11:15 AM Signed----- [facility] sent at 10/25/2017 11:02 AM EDT -----Regarding: enoxaparianContact: Gqricpjl is questioning the quaintly, they can be reached at the number above.Iva Blanton (Rn), RN 10/25/2017 11:17 AM SignedPharmaci s/w Dr. Almaraz for Rx clarification. Pt is to receive enoxaparin forone month. Normal [facility] Lab Miscellaneouson 08-21-19 18 Status See Ref Lab Report Normal [facility] Comment on above: Performed By: #### 1 [id number] ####NEVA [address] [place] [id number] Hep Bs Agon 08-19-2017 BSA (Body Surface Area) Negative Normal Negative [facility] Comment on above: Result Comment: Perf ormed At: [place] [id number] [place], [place] [id number] Vincent PhD Ph:[phone] Performed By: #### 1 [id number] ####NEVA [address]ijy[address] [place] [address] Hep C Abon 08-19-2017 Hep C Ab 0.2 s/co ratio Normal 0.0-0.9 [facility] Comment on above: Result Comment: Nega tive: < 0.8 Indeterminate: 0.8 - 0.9 Positive: > 0.9 The CDC recommends that a positive HCV antibody result be followed up with a HCV Nucleic Acid Amplification test (388071).Performed At: [facility] [place], [place] [id number] Vincent PhD Ph:[phone] Performed By: #### 1 [id number] ####NEVA [address]YefNdhr[address] [place] [address] Hep. B Core Ab, Totalon 07-27 Hep B Core Ab Tot Negative Normal Negative [facility] Comment on above: Result Comment: Perf ormed At: [facility] [address]awt[address] [place], [place] [id number] Vincent PhD Ph:[phone] Performed By: #### 1 [id number] ####NEVA [address]Kyec9735 [place] [address] Auto Diffon 08-18-2017 Basophils Auto #/vol (Bld) 0.1 E3/mcL Normal 0.0-0.2 [facility] Comment on above: Order Comment: Order Added by Discern Expert. Performed By: #### 2 165959 ####NEVA [address]Diaj[address]345 [place] [address] Basophils/100 WBC Auto (Bld) 0.8 % Normal 0.0-2.0 [facility] Comment on above: Order Comment: Order Added by Discern Expert. Performed By: #### 2 496961 ####NEVA Q[address]Rpzy3810 [place] [address] Eos Absolute 0.4 E3/mcL Normal 0.0-0.7 [facility] Comment on above: Order Comment: Order Added by Discern Expert. Performed By: #### 2 113456 ####NEVA [address]nhEgon[address] [place] [address] Eosinophils/100 leukocytes 4.1 % Normal 0.0-11.0 [facility] Comment on above: Order Comment: Order Added by Discern Expert. Performed By: #### 2 714491 ####NEVA SptVybr2315 [place] [address] Lymphocytes 2.5 E3/mcL Normal 1.2-3.4 [facility] Comment on above: Order Comment: Order Added by Discern Expert. Performed By: #### 2 [id number] ####NVEABrandin [address]OjpZnbv[address] [place] [address] Lymphocytes/100 leukocytes 26.9 % Normal 20.0-55.0 [facility] Comment on above: Order Comment: Order Added by Discern Expert. Performed By: #### 2 [id number] ####NEVA [address] [place] [address] Maverick Absolute 0.5 E3/mcL Normal 0.0-0.7 [facility] Comment on above: Order Comment: Order Added by Discern Expert. Performed By: #### 2 [id number] ####NEVA [address] [place] [address] Monocytes/100 leukocytes 5.2 % Normal 0.0-10.0 [facility] Comment on above: Order Comment: Order Added by Discern Expert. Performed By: #### 2 [id number] ####NEVA [address] [place] [address] Neutro Absolute 5.8 E3/mcL Normal 1.4-6.5 [facility] Comment on above: Order Comment: Order Added by Discern Expert. Performed By: #### 2 [id number] ####NEVA [address] [place] [address] Neutro Auto 63.0 % Normal 37.0-75.0 [facility] Comment on above: Order Comment: Order Added by Discern Expert. Performed By: #### 2 [id number] ####NEVA [address] [place] [address] CBC w/ Auto Diffon 8 Erythrocyte distribution width Auto Ratio (RBC) 14.3 % Normal 11.5-14.5 [facility] Comment on above: Performed By: #### 2 620895 ####NEVA [address] [place] [address] Erythrocytes (RBC) 4.21 E6/mcL Normal 3.90-5.40 [facility] Comment on above: Performed By: #### 2 615103 ####NEVA [address] [place] [address] Hematocrit (HCT) 40.3 % Normal 36.0-48.0 [facility] Comment on above: Performed By: #### 2 720797 ####NEVA [address] [place] [address] Hemoglobin mass conc (Bld) 12.9 g/dL Normal 12.0-16.0 [facility] Comment on above: Performed By: #### 2 750992 ####NEVA [address] [place] [address] MCH 30.7 pg Normal 27.0-31.0 [facility] Comment on above: Performed By: #### 2 699982 ####NEVA [address] [place] [address] MCHC mass conc (RBC) 32.0 g/dL Low 33.0-37.0 [facility] Comment on above: Performed By: #### 2 676574 ####NEVA [address] [place] [address] MCV 95.8 fL Normal 78.0-100.0 [facility] Comment on above: Performed By: #### 2 474319 ####NEVA [address] [place] [address] Platelet mean volume (PMV) 8.1 fL Normal 7.4-11.0 [facility] Comment on above: Performed By: #### 2 416482 ####NEVA [address] [place] [address] Platelets 164 E3/mcL Normal 130-400 [facility] Comment on above: Performed By: #### 2 922443 ####NEVA [address] [place] [address] WBC (Leukocytes) 9.3 E3/mcL Normal 3.6-11.0 [facility] Comment on above: Performed By: #### 2 248404 ####NEVA [address] [place] [address] CMPon 08-18-2017 Alanine aminotransferase (ALT) 17 Int._Unit/L Normal 10-40 [facility] Comment on above: Performed By: #### 1 [id number] ####NEVA Be[address]Ptsb[address] [place] [address] Albumin 3.3 g/dL Normal 3.2-5.0 [facility] Comment on above: Performed By: #### 1 [id number] ####NEVA [address]YvzUqlv[address] [place] [address] Albumin/Globulin Ratio 0.9 {ratio} Low 1.1-1.9 [facility] Comment on above: Performed By: #### 1 [id number] ####NEVA PerLfiy[address] [place] [address] Alk Phos 88 Int._Unit/L Normal 42-121 [facility] Comment on above: Performed By: #### 1 [id number] ####NEVA JdkLyhg7234 [place] [address] Aspartate aminotransferase (AST) 17 Int._Unit/L Normal 10-42 [facility] Comment on above: Performed By: #### 1 [id number] ####NEVA SsqDbgx4330 [place] [address] Bili Total 0.4 mg/dL Normal 0.2-1.0 [facility] Comment on above: Performed By: #### 1 [id number] ####NEVA WtdRfrc7353 [place] [address] BUN/Creatinine Ratio 18.8 ratio Normal 5.4-30.0 [facility] Comment on above: Performed By: #### 1 [id number] ####NEVA PsjYxij0815 [place] [address] Creatinine 0.8 mg/dL Normal 0.6-1.3 [facility] Comment on above: Performed By: #### 1 [id number] ####NEVA OdkOpyq5209 [place] [address] Globulin 3.6 g/dL Normal 2.0-4.0 [facility] Comment on above: Performed By: #### 1 6042761 ####NEVA AkmQrxt05[address] [place] [address] Protein 6.9 g/dL Normal 6.4-8.3 [facility] Comment on above: Performed By: #### 1 [id number] ####NEVA WsyVoum[address] [place] [address] Urea nitrogen 15 mg/dL Normal 7-18 [facility] Comment on above: Performed By: #### 1 [id number] ####NEVA PvjYaky2823 [place] [address] Calcium 8.7 mg/dL Normal 8.4-10.2 [facility] Comment on above: Performed By: #### 1 [id number] ####NEVA [address]BxpIyre64[address] [place] [address] Chloride 110 mmol/L High 98-107 [facility] Comment on above: Performed By: #### 1 7655649 ####NEVA [address]vi[address] [place] [address] CO2 20.5 mmol/L Low 24.0-30.0 [facility] Comment on above: Performed By: #### 1 5088133 ####NEVA HnxPajq[address] [place] [address] Glucose mass conc 95 mg/dL Normal 70-99 [facility] Comment on above: Performed By: #### 1 4583590 ####NEVA OotBmzj8717 [place] [address] Potassium molar conc 3.9 mmol/L Normal 3.5-5.1 [facility] Comment on above: Performed By: #### 1 2864937 ####NEVA QjmYmyj2024 [place] [address] Sodium 137 mmol/L Normal 136-145 [facility] Comment on above: Performed By: #### 1 [id number] ####NEVA FeoSmim[address] [place] [address] HIV-1/2 Ag/Abon 08-18-2017 HIV-1/2 Ag/Ab Non-Reactive Normal Non-Reacti ve [facility] Comment on above: Performed By: #### 1 [id number] ####NEVA [address]WmaGlcu32[address] [place] [address] Lab Miscellaneouson 08-18-19 18 Test Name Quant gold Normal [facility] Comment on above: Performed By: #### 1 [id number] ####NEVA [address]RhfHrrf[address] [place] [address] eGFRon 08-18-2017 eGFR (non-black) mL/min/{1.73_m2} Normal [facility] Comment on above: Order Comment: Order added by Discern Expert. Performed By: #### 1 [id number] ####NEVA VqpXhfz7093 [place] [address] Auto Diffon 01-04-2017 Basophils Auto #/vol (Bld) 0.2 E3/mcL Normal 0.0-0.2 [facility] Comment on above: Order Comment: Order Added by Discern Expert. Performed By: #### 2 307591 ####NEVA [address] [place] [address] Basophils/100 WBC Auto (Bld) 1.6 % Normal 0.0-2.0 [facility] Comment on above: Order Comment: Order Added by Discern Expert. Performed By: #### 2 894424 ####NEVA [address]ZekXllc2735 [place] [address] Eos Absolute 0.3 E3/mcL Normal 0.0-0.7 [facility] Comment on above: Order Comment: Order Added by Discern Expert. Performed By: #### 2 602211 ####NEVA [address] [place] [address] Eosinophils/100 leukocytes 3.3 % Normal 0.0-11.0 [facility] Comment on above: Order Comment: Order Added by Discern Expert. Performed By: #### 2 211250 ####NEVA BsiWiuz3083 [place] [address] Lymphocytes 2.6 E3/mcL Normal 1.2-3.4 [facility] Comment on above: Order Comment: Order Added by Discern Expert. Performed By: #### 2 154313 ####NEVA OmdUuik8509 [place] [address] Lymphocytes/100 leukocytes 25.1 % Normal 20.0-55.0 [facility] Comment on above: Order Comment: Order Added by Discern Expert. Performed By: #### 2 851619 ####NEVA RfnXhtj3262 [place] [address] Maverick Absolute 0.5 E3/mcL Normal 0.0-0.7 [facility] Comment on above: Order Comment: Order Added by Discern Expert. Performed By: #### 2 171184 ####NEVA VviEbec5623 [place] [address] Monocytes/100 leukocytes 4.3 % Normal 0.0-10.0 [facility] Comment on above: Order Comment: Order Added by Discern Expert. Performed By: #### 2 636083 ####NEVA WsqDaeh01[address] [place] [address] Neutro Absolute 6.8 E3/mcL High 1.4-6.5 [facility] Comment on above: Order Comment: Order Added by Discern Expert. Performed By: #### 2 149979 ####NEVA [address] [place] [address] Neutro Auto 65.7 % Normal 37.0-75.0 [facility] Comment on above: Order Comment: Order Added by Discern Expert. Performed By: #### 2 386044 ####NEVA [address] [place] [address] BMPon 01-04-2017 BUN/Creatinine Ratio 15.7 ratio Normal 5.4-30.0 [facility] Comment on above: Performed By: #### 2 930422 ####NEVA CvbRkbi3585 [place] [address] Creatinine 0.7 mg/dL Normal 0.6-1.3 [facility] Comment on above: Performed By: #### 2 444421 ####NEVA XdhPluk7955 [place] [address] Urea nitrogen 11 mg/dL Normal 7-18 [facility] Comment on above: Performed By: #### 2 244148 ####NEVA BywGfnn7998 [place] [address] Calcium 9.1 mg/dL Normal 8.4-10.2 [facility] Comment on above: Performed By: #### 2 076596 ####NEVA QzjHaqn8915 [place] [address] Chloride 110 mmol/L High 98-107 [facility] Comment on above: Performed By: #### 2 807666 ####NEVA GitCmsf5508 [place] [address] CO2 21.1 mmol/L Low 24.0-30.0 [facility] Comment on above: Performed By: #### 2 939662 ####NEVABrandin [address]CwfVcsl26[address] [place] [address] Glucose mass conc 109 mg/dL High 70-99 [facility] Comment on above: Performed By: #### 2 641083 ####NEVABrandin RomanOxyGovi9726 [place] [address] Potassium molar conc 4.0 mmol/L Normal 3.5-5.1 [facility] Comment on above: Performed By: #### 2 848952 ####NEVA [address]CepUezw4274 [place] [address] Sodium 136 mmol/L Normal 136-145 [facility] Comment on above: Performed By: #### 2 996589 ####NEVA Roman[address] [place] [address] CBC w/ Auto Diffon 7 Erythrocyte distribution width Auto Ratio (RBC) 13.2 % Normal 11.5-14.5 [facility] Comment on above: Performed By: #### 2 293374 ####NEVA [address] [place] [address] Erythrocytes (RBC) 4.35 E6/mcL Normal 3.90-5.40 [facility] Comment on above: Performed By: #### 2 315579 ####NEVA Xsx[address]azt[address] [place] [address] Hematocrit (HCT) 40.2 % Normal 36.0-48.0 [facility] Comment on above: Performed By: #### 2 808454 ####NEVA [address] [place] [address] Hemoglobin mass conc (Bld) 13.2 g/dL Normal 12.0-16.0 [facility] Comment on above: Performed By: #### 2 235185 ####NEVA WfrGvtx[address] [place] [address] MCH 30.3 pg Normal 27.0-31.0 [facility] Comment on above: Performed By: #### 2 545538 ####NEVA CgwUbhq1361 [place] [address] MCHC mass conc (RBC) 32.7 g/dL Low 33.0-37.0 [facility] Comment on above: Performed By: #### 2 167496 ####NEVA JhvAhoj4804 [place] [address] MCV 92.4 fL Normal 78.0-100.0 [facility] Comment on above: Performed By: #### 2 064897 ####NEVA [address] [place] [address] Platelet mean volume (PMV) 9.5 fL Normal 7.4-11.0 [facility] Comment on above: Performed By: #### 2 755221 ####NEVA [address] [place] [address] Platelets 145 E3/mcL Normal 130-400 [facility] Comment on above: Performed By: #### 2 172176 ####NEVA [address]Rkrk[address] [place] [address] WBC (Leukocytes) 10.4 E3/mcL Normal 3.6-11.0 [facility] Comment on above: Performed By: #### 2 445021 ####NEVA [address] [place] [address] Morphon 01-04-2017 Erythrocyte morphology NORMAL Normal [facility] Comment on above: Order Comment: Order Added by Discern Expert. Performed By: #### 1 [id number] ####NEVA [address]NcoZriv8542 [place] [address] Troponin-Ion 01-04-2017 Troponin I.cardiac mass conc ng/mL Normal .00-.03 [facility] Comment on above: Performed By: #### 2 837269 ####NEVA NmsQkxc0999 [place] [address] XR Chest 2 Viewson 7 INR Coag RelTime (Bld) Exam Date/Time:01/03/2017 23:30 EDTReason for Exam:Chest painReportPA AND LATERAL CHESTCLINICAL HISTORY: Midsternal chest pain, shortness of breath x1 month. Recentdiagnosis of pulmonary embolism.COMPARISON: None.FINDINGS: Two views are submitted. The lungs and pleural spaces are clear.Pulmonary vascular markings are normal. The right hemidiaphragm is elevated.The cardiomediastinal silhouette is within normal limits. No bony lesions areshown.IMPRESSION:1. No acute cardiopulmonary abnormality.2. Symmetric appearance of the pulmonary vasculature.3. Elevation of the right hemidiaphragm. FINAL REPORT Dictated: 01/04/2017 0:42 am Scar Medley MD KSigned (Electronic Signature): 01/04/2017 0:42 amSigned by: Scar Medley MD Technologist: MEM Normal [facility] eGFRon 01-04-2017 eGFR (non-black) mL/min/{1.73_m2} Normal [facility] Comment on above: Order Comment: Order added by Discern Expert. Performed By: #### 1 [id number] ####NEVA ChsMuov8065 [place] [address] zzplt morphon 01-04-2017 Platelet morphology NORMAL [facility] Comment on above: Performed By: #### 9 [id number] ####NEVA VrgQrrs2548 [place] [address] Platelets NORMAL [facility] Comment on above: Performed By: #### 9 7379958 ####NEVA EnmOsgx[address] [place] [address] Vital Signs Date Time Vital Sign Value Performing Clinician Facility 10-07-2024 11:42-0400 Diastolic blood pressure 57 mm[Hg] Dr. Gene Peterson MD Work Phone: [phone] [place] [address] 10-07-2024 11:42-0400 SaO2% (BldA) [Mass fraction] 100 % Dr. Gene Peterson MD Work Phone: [phone] [place] [address] 10-07-2024 11:42-0400 Systolic blood pressure 120 mm[Hg] Dr. Gene Peterson MD Work Phone: [phone])[phone] [place] [address] 10-07-2024 11:41-0400 Body temperature 98.1 [degF] Dr. Gene Peterson MD Work Phone: [phone])[phone] [place] [address] 10-07-2024 11:41-0400 Heart rate 77 /min Dr. Gene Peterson MD Work Phone: [phone])[phone] [place] [address] 10-07-2024 11:41-0400 Respiratory rate 16 /min Dr. Gene Peterson MD Work Phone: 1(018)[phone] [place] [address] 10-07-2024 09:56-0400 Body height 170.[address] Gene Peterson MD Work Phone: [facility] 10-07-2024 09:56-0400 Body mass index (BMI) [Ratio] 27.5 kg/m2 Dr. Gene Peterson MD Work Phone: [facility] 10-07-2024 09:56-0400 Body weight 79.[address] Gene Peterson MD Work Phone: [facility] 10-01-2023 11:39-0400 Body height 167.6 cm Tanika Gonzalez MD Work Phone: [facility] 10-01-2023 11:39-0400 Body weight 90.72 kg Tanika Gonzalez MD Work Phone: [facility] 10-01-2023 11:39-0400 Diastolic blood pressure 78 mm[Hg] Tanika Gonzalez MD Work Phone: [facility] 10-01-2023 11:39-0400 Heart rate 72 /min Tanika Gonzalez MD Work Phone: [facility] 10-01-2023 11:39-0400 Systolic blood pressure 118 mm[Hg] Tanika Gonzalez MD Work Phone: [facility] 09-15-2022 15:48-0400 Body weight 84.82 kg Stacy Wright APRN.DOOR PATCHER Work Phone: [facility] 09-15-2022 15:48-0400 Diastolic blood pressure 62 mm[Hg] Stacy Wright APRN.DOOR PATCHER Work Phone: [facility] 09-15-2022 15:48-0400 Systolic blood pressure 98 mm[Hg] Stacy Wright APRN.DOOR PATCHER Work Phone: [facility] 08-22-2019 04:17-0500 BP Diastolic 50 mm[Hg] Mikey [employer] [facility] 08-22-2019 04:17-0500 BP Systolic 95 mm[Hg] Hasty [employer] [facility] 08-22-2019 04:17-0500 Pulse (Heart Rate) 74 /min [facility] [employer] [facility] 08-22-2019 04:17-0500 Pulse Oximetry 98 % Hasty Krish [facility] 08-22-2019 04:17-0500 Respiratory Rate 17 /min Hasty Rutherford [facility] 08-22-2019 01:35-0500 BMI (Body Mass Index) 31.64 kg/m2 [facility] 08-22-2019 01:35-0500 Body Temperature 98.1 [degF] [facility] 08-22-2019 01:35-0500 Body weight 88.91 kg [facility] 08-22-2019 01:35-0500 Height 167.6 cm [facility] 07-30-2019 15:50-0500 Pulse (Heart Rate) 84 /min [facility] 07-30-2019 15:50-0500 Pulse Oximetry 100 % Andrew [facility] 07-30-2019 15:50-0500 Respiratory Rate 18 /min Andrew [facility] 07-30-2019 15:00-0500 BP Diastolic 50 mm[Hg] Andrew Luis Manuel [facility] 07-30-2019 15:00-0500 BP Systolic 93 mm[Hg] Andrew [place] [facility] 07-30-2019 12:27-0500 Body Temperature 97.7 [degF] Andrew Luis Manuel [facility] 07-30-2019 08:29-0500 BMI (Body Mass Index) 29.86 kg/m2 Andrew Luis Manuel [facility] 07-30-2019 08:29-0500 Body weight 89.09 kg Andrewcordell Issa [facility] 07-30-2019 08:29-0500 Height 172.7 cm Andrew [place] [facility] 1975 00:00-0400 >na< [place] 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 Start: 02-04-2025 ambulatory BESSIE Jolley [facility] Start: 12-18-2024 End: 12-18-2024 ambulatory BESSIE MARGOTHCREEK Facility: Start: 11-12-2024 End: 11-12-2024 ambulatory BESSIECATALINO WOOEK Facility:[facility] Start: 11-12-2024 Encounter for genera l adult medical examination without abnormal findings JACOBO GOULD [facility] Start: 11-10-2024 End: 11-10-2024 ambulatory Jacobogriselda Gould PT Work Phone: [facility] Comment on above: Radiculopathy of cer vical spine (Primary Dx); Neck pain Start: 10-28-2024 End: 10-28-2024 ambulatory BESSIE MARGOTHTIFFANIE Facility: Start: 10-23-2024 End: 10-23-2024 ambulatory CLARISSA A FISH Facility: Start: 10-20-2024 End: 10-20-2024 ambulatory Jacobo Gould PT Work Phone: [facility] Comment on above: Radiculopathy of cer vical spine (Primary Dx); Neck pain Start: 10-07-2024 End: 10-07-2024 Emergency department patient visit Dr. Gene Peterson MD Work Phone: -Emergency Department Work Phone: Start: 10-07-2024 End: 10-07-2024 ambulatory Jacobogriselda Gould PT Work Phone: [facility] Comment on above: Neck pain (Primary D x) Start: 10-03-2024 End: 10-03-2024 Office outpatient visit 25 minutes Rocky Brittany RECRUITMENT INTERN-DOOR PATCHER Work Phone: [facility] Comment on above: Psoriasis (Primary D x); Other terminologist (current) drug therapy Start: 10-03-2024 End: 10-03-2024 ambulatory [facility] Start: 10-01-2024 End: 10-01-2024 ambulatory CLARISSA A FISH Facility: Start: 08-19-2024 End: 08-19-2024 ambulatory BESSIECATALINO KIRK Facility: Start: 07-31-2024 End: 07-31-2024 ambulatory BESSIE KIRK Facility: Start: 06-12-2024 End: 06-12-2024 ambulatory CLARISSAKYLE PEREZMORA Facility: Start: 05-29-2024 End: 05-29-2024 ambulatory CLARISSAKYLE PEREZMORA Facility: Start: 04-30-2024 End: 04-30-2024 ambulatory BESSIE KIRK Facility: Start: 04-23-2024 ambulatory FATUMA LOWERY [facility] Start: 04-16-2024 End: 04-16-2024 ambulatory NATASHA CASTELAN [facility]ly named [facility] Start: 12-31-2023 Telephone encounter Tanika aguilar MD Work Phone: [facility] Comment on above: Patient Question Start: 10-04-2023 End: 10-04-2023 ambulatory ROCKY SOTO Facility:[id number] Start: 10-04-2023 End: 10-04-2023 Office outpatient visit 25 minutes Rocky Soto RECRUITMENT INTERN-DOOR PATCHER Work Phone: [facility] Comment on above: Rash and other nonsp ecific skin eruption (Primary Dx); Psoriasis Start: 10-01-2023 End: 10-01-2023 Patient encounter procedure Tanika Gonzalez MD Work Phone: [facility] Comment on above: Neuropathy (Primary Dx) Start: 10-01-2023 End: 10-01-2023 ambulatory JUAN CARPENTER Facility:[id number] Start: 07-31-2023 End: 07-31-2023 Emergency department patient visit JUAN CARPENTER Facility:[id number] Start: 03-07-2023 Telephone encounter Tanika aguilar MD Work Phone: [facility] Comment on above: Appointment Start: 11-28-2022 ambulatory PHYSICIAN MISC Facility :[facility] Start: 11-28-2022 End: 11-28-2022 Subsequent hospital visit by physician Provider [facility] Comment on above: PELVIC FLOOR Start: 11-23-2022 ambulatory PHYSICIAN MISC Facility :[facility] Start: 11-23-2022 End: 11-23-2022 Subsequent hospital visit by physician Provider [facility] Start: 11-10-2022 ambulatory BESSIE KIRK [facility] ac[facility] Start: 11-10-2022 End: 11-10-2022 Subsequent hospital visit by physician [facility] Start: 10-25-2022 End: 11-22-2022 ambulatory PHYSICIAN MISC Facility:[facility] Start: 10-25-2022 End: 11-23-2022 Subsequent hospital visit by physician [facility] Start: 09-28-2022 End: 10-22-2022 ambulatory PHYSICIAN MISC Facility:[facility] Start: 09-28-2022 End: 10-23-2022 Subsequent hospital visit by physician Provider [facility] Start: 09-22-2022 ambulatory UNKNOWN UNKNOWN Facilit y:[id number] Start: 09-22-2022 Office outpatient vi sit 15 minutes Rocky Soto Dept. of Dermatology Start: 09-21-2022 End: 09-22-2022 ambulatory PHYSICIAN MISC Facility:[facility] Start: 09-21-2022 End: 09-23-2022 Subsequent hospital visit by physician Provider [facility] Start: 09-15-2022 End: 09-15-2022 Patient encounter procedure Stacy Wright APRN.[facility] Work Phone: OB/Gynecology Comment on above: Postmenopausal bleed ing (Primary Dx); Thickened endometrium Start: 07-06-2022 End: 07-07-2022 Emergency department patient visit AGAPITO VILLEDA Facility:[facility] Start: 07-06-2022 End: 07-06-2022 Subsequent hospital visit by physician Provider [facility] Comment on above: MIGRAINE Start: 04-27-2022 End: 04-28-[address] NATALIIA GREEN Facility:[facility] Start: 03-24-2022 ambulatory Ms. Rocky Soto Facility:[id number] Start: 03-24-2022 Office outpatient vi sit 15 minutes [place] S[facility] Dept[facility] of Dermatology Start: 01-24-[address] Janay Escobedo Facility:[id number] Start: 01-24-2022 Office outpatient vi sit 15 minutes Rocky Soto [facility] of Dermatology Start: 12-01-2021 End: 12-01-2021 Subsequent hospital visit by physician Provider [facility] Comment on above: SOA,CHEST PAIN Start: 08-10-2021 End: 08-11-2021 Office outpatient visit 15 minutes Rocky Soto Dept[facility] of Dermatology Start: 12-29-2020 End: 12-30-2020 Subsequent hospital visit by physician Provider [facility] Comment on above: COUGH/NO VOICE Start: 12-07-2020 Patient encounter procedure Sarah Pathak MD Work Phone: [facility] Start: 12-07-2020 Progress Note Sarah Lebron nd, MD Work Phone: [facility] Start: 09-13-2020 End: 09-13-2020 Office outpatient visit 15 minutes Rocky Arguellone Dept. of Dermatology Start: 06-07-2020 End: 06-08-2020 Office outpatient visit 15 minutes Rocky Brittany Dept. of Dermatology Start: 03-10-2020 End: 03-10-2020 Office outpatient visit 15 minutes Rocky Brittany Dept. of Dermatology Start: 03-10-2020 End: 03-10-2020 Office outpatient visit 25 minutes Rocky Brittany Dept. of Dermatology Start: 12-02-2019 Office outpatient vi sit 25 minutes Rocky Brittany Dept. of Dermatology Start: 08-22-2019 End: 08-22-2019 Emergency department patient visit Mikey Rutherford Work Phone: [facility] Emergency Dept Comment on above: Chest pain, unspecif ied type (Primary Dx) Start: 07-31-2019 End: 07-31-2019 Patient encounter procedure Afsaneh Chappell [facility] Nurse Line Start: 07-30-2019 End: 07-30-2019 Patient encounter procedure Greg Fredrickgenoveva [facility] Nurse Line Start: 07-30-2019 End: 07-30-2019 Subsequent hospital visit by physician Andrew Issa Work Phone: [facility] ([facility]) Comment on above: Abnormal stress test (Primary Dx); Abnormal ECG Start: 07-29-2019 End: 07-29-2019 Telephone encounter Zehra ROMERO [place] Comment on above: Results Start: 07-28-2019 End: 07-28-2019 Subsequent hospital visit by physician Linane Copeland Work Phone: [facility] Comment on above: Chest pain Start: 07-16-2019 End: 07-16-2019 Telephone encounter Zehra Gongora [facility] [place] Comment on above: Other Start: 06-04-2019 End: 06-04-2019 Subsequent hospital visit by physician Odalis River Work Phone: [facility] Comment on above: Abnormal EKG; Precordial chest pain Start: 04-27-2019 End: 04-28-2019 Office outpatient visit 15 minutes Rocky Soto Dept[facility] of Dermatology Start: 04-24-2019 End: 04-24-2019 Subsequent hospital visit by physician Juan Craft Work Phone: 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 Start: 05-05-2018 End: 05-06-2018 Office outpatient visit 25 minutes Rocky Soto [facility] Start: 01-14-2018 End: 01-14-2018 Office outpatient visit 15 minutes Rocky Soto [facility] Start: 12-24-2017 Ambulatory Rocky Soto Facility: [facility] Start: 10-29-2017 End: 10-31-2017 [facility] Start: 10-23-2017 End: 12-08-2017 Ambulatory Juan Fan Brunolauren Facility:[facility] Start: 08-18-2017 End: 08-19-2017 Ambulatory OLLIE SOTO SOFTWARE QA SYSTEM SPECIALIST Facility:[facility] Start: 08-16-2017 End: 08-17-2017 Office outpatient visit 15 minutes Rocky Soto [facility] Start: 08-16-2017 Office outpatient vi sit 25 minutes Rocky Soto [facility]atology Start: 02-15-2017 Patient encounter status Collin Pathak MD Work Phone: [facility] Work Phone: Start: 01-31-2017 Office consultation new/estab patient 40 min Rocky Soto [facility] of D[facility]atology Start: 01-31-2017 End: 01-31-2017 Office outpatient visit 15 minutes Rocky Soto [facility] of [facility]atology Start: 01-03-2017 End: 01-04-2017 Emergency department patient visit Jasbir Ramos Facility:[facility] Procedures Date Procedure Procedure Detail Performing Clinician Start: 01-24-2022 Sm[address] src spec st ain bodies/parasits Rocky Soto Start: 12-01-2021 Ct abdomen & pelvis w/o contrast material Chichi Tavarez [employer] Work Phone: Start: 12-01-2021 Ecg routine ecg w/le ast 12 lds trcg only w/o i&r Ccf Provider Start: 12-01-2021 CK CREATINE KINASE Siria Robertson Work Phone: Start: 12-01-2021 Creatine kinase.MB [Mass/volume] in Serum or Plasma Chichi Robertson Work Phone: Start: 12-01-2021 EXPEDITED COVID19 Chichi Robertson Work Phone: Start: 12-01-2021 HCG QUAL UR Chichi Robertson Work Phone: Start: 12-01-2021 HEPATIC FUNCTION PNL El savanna Robertson Work Phone: Start: 12-01-2021 LIPASE BLD Chichi Robertson Work Phone: Start: 12-01-2021 TROPONIN T Chichi Robertson Work Phone: Start: 12-01-2021 UA WITH CULTURE IF INDICATED Chichi Robertson Work Phone: Start: 12-01-2021 Radiologic exam ches t single view Chichi Robertson Work Phone: Start: 04-19-2021 Mammography Rocky osborne RECRUITMENT INTERN-DOOR PATCHER Work Phone: Start: 12-30-2020 Radiologic exam ches t single view Diana Ishmaelleilani Work Phone: Start: 09-13-2020 End: 09-13-2020 Injection intralesional up to & includ 7 lesions Rocky Soto Start: 12-02-2019 End: 12-02-2019 Established Office Visit Level 4 15 minutes of time was spent with the patient today, the majority of which was spent in counseling and coordination of care. Rocky Soto Start: 08-22-2019 Radiologic exam ches t single view Mikey Rutherford Work Phone: Start: 08-22-2019 Assay of troponin quantitative Mikey Rutherford Work Phone: Start: 08-22-2019 Basic metabolic pane l calcium total Mikey Rutherford Work Phone: Start: 08-22-2019 CBC WITH DIFFERENTIAL N ile Krish Work Phone: Start: 08-22-2019 GLOMERULAR FILTRATION RATE Mikey Rutherford Work Phone: Start: 08-22-2019 Standard ECG Mikey Rutherford Work Phone: Start: 07-30-2019 CARDIAC CATHETERIZAT ION - LEFT HEART Unspecified Provider Start: 07-30-2019 MATCH UP PERSON - END OF CA SE STAFF DOCUMENTATION Unspecified Provider Start: 07-30-2019 XR Chest PA and late ral upright Zehra Gongora Start: 07-30-2019 Assay of magnesium Diaz Issa Work Phone: Start: 07-30-2019 Basic metabolic pane l calcium total Zehra Gongora Start: 07-30-2019 Blood count complete automated Zehra Gongora Start: 07-30-2019 GLOMERULAR FILTRATION RATE Andrew Issa Work Phone: Start: 07-30-2019 Urine test visual color cmprsn meths Andrew Issa Work Phone: Start: 07-28-2019 Cv strs tst xers&/or rx cont ecg trcg only Lianne Copeland Work Phone: Start: 04-24-2019 Basic metabolic pane l calcium total Juan Craft Work Phone: Start: 04-24-2019 Blood count complete automated Juan Craft Work Phone: Start: 04-24-2019 GLOMERULAR FILTRATION RATE Juan Craft Work Phone: Start: 02-11-2019 Lipid 1996 panel - S cassia or Plasma Tanika Gonzalez MD Work Phone: Start: 01-29-2019 Mammography Sarah hayes MD Work Phone: Start: 08-16-2017 End: 08-17-2017 Established Office Visit Level 4 Rocky Soto Start: 01-31-2017 End: 01-31-2017 Office Consult Level 3 Rocky Soto Plan of Treatment Date Care Activity Detail Author Start: 2034 RSV patient s and/or patients aged 60+ years (1 - 1-dose 60+ series) RSV patients and/or patients aged 60+ years (1 - 1-dose 60+ series) [facility] Start: 02-25-2026 Screening for malign ant neoplasm of breast Mammogram Screening [facility] Start: 02-23-2025 Influenza vaccination Influenz a Vaccine (Season Ended) [facility] Start: 11-18-2024 End: 11-18-2024 ambulatory 11/18/2024 3:00 PM EDT OT/PT/Speech Visit [facility] [address] [place] [address] Jacobo Gould, PT [address] [facility] [address] Cervical Radiculopathy Eval [facility] Comment on above: Cervical Radiculopat hy Eval Start: 11-10-2024 End: 11-10-2024 ambulatory 11/10/2024 11:30 AM EDT OT/PT/Speech Visit [facility] [address] [place] [address] Jacobo Gould, PT [address] [place] [address] Cervical Radiculopathy Eval [facility] Comment on above: Cervical Radiculopat hy Eval Start: 11-03-2024 End: 11-03-2024 ambulatory 11/03/2024 11:45 AM EDT OT/PT/Speech Visit [facility] [address] [facility] [place] [address] Bozena Patterson, [employer] [address] [place] [address] Cervical Radiculopathy Eval [facility] Comment on above: Cervical Radiculopat hy Eval Start: 10-27-2024 End: 10-27-2024 ambulatory 10/27/2024 11:00 AM EDT OT/PT/Speech Visit [facility] [address] [facility] [place] [address] Bozena Patterson, [employer] [address] [place] [address] Cervical Radiculopathy Eval [facility] Comment on above: Cervical Radiculopat hy Eval Start: 10-20-2024 End: 10-20-2024 ambulatory 10/20/2024 2:15 PM EDT OT/PT/Speech Visit [facility] [address] [place] [address] Jacobo Gould, PT [address] [place] [address] Cervical Radiculopathy Eval [facility] Comment on above: Cervical Radiculopat hy Eval Start: 10-07-2024 [facility] Start: 10-03-2024 End: 10-03-2025 Mycobacterium tuberculosis stimulated gamma interferon and spot count panel - Blood T-Spot TB Lab Routine Psoriasis Other mcc (current) drug therapy Expected: 10/03/2024 (Approximate), Expires: 10/03/2025 [facility] Service Area Work Phone: Comment on above: Expected: 10/03/2024 (Approximate), Expires: 10/03/2025 Start: 10-03-2024 End: 10-03-2024 Patient encounter procedure 10/03/2024 1:00 PM EDT Office Visit [place] [id number] [phone] Rocky Soto, RECRUITMENT INTERN-DOOR PATCHER [address] [address] [facility] Start: 04-01-2024 End: 04-01-2024 Patient encounter procedure 04/01/2024 11:30 AM EDT Office Visit [facility] [address] [place] [address] [id number] Tanika Gonzalez MD [address] [place] [address] year follow up neuropathy [facility] Comment on above: year follow up neuro shima Start: 02-24-2024 COVID-19 Vaccine ( season) COVID-19 Vaccine ( season) [facility] Start: 02-24-2024 Influenza vaccination C [facility] Start: 02-19-2024 Pneumococcal vaccination Pneum ococcal Vaccine (1 of 1 - PCV) [facility] Start: 02-19-2024 Zoster Vaccines (1 of 2) Zoster Vacc leora (1 of 2) [facility] Start: 02-12-2024 Lipid 1996 panel - S cassia or Plasma Lipid Screening [facility] Start: 02-12-2024 Lipid panel Lipid Screening [facility] Start: 02-12-2024 LIPID SCREEN LIPID SCREEN [facility] Start: 06-08-2023 Diabetes Screening Diabetes Screenin [facility] Start: 02-23-2023 COVID-19 Vaccine ( season) COVID-19 Vaccine ( season) [facility] Start: 02-23-2023 Influenza vaccination C [facility] Start: 04-19-2022 Screening for malign ant neoplasm of breast [facility] Start: 02-23-2022 Influenza vaccination C [facility] Start: 02-11-2022 DIABETES SCREEN DIABETES SCREEN [facility] Start: 02-11-2022 Diabetes Screening Diabetes Screenin [facility] Start: 01-30-2020 Mammography [facility] Start: 09-18-2019 End: 09-18-2019 Office Visit 09/18/2019 Office Visit Dentistry Karma Abdi R[facility] Start: 09-08-2019 End: 09-08-2019 Office Visit 09/08/2019 Office Visit Cardiology [facility] Start: 07-30-2019 End: 07-30-2019 Hospital Encounter [facility] (OPS) Comment on above: Abnormal stress test (Primary Dx); Abnormal ECG LEFT HEART CATHETERI ZATION WITH A POSSIBLE PERCUTANEOUS CORONARY INTERVENTION (LHC W/ POSS PCI) Start: 06-26-2019 End: 06-26-2019 Office Visit 06/26/2019 Office Visit Orthopedic Surgery Alexey Green PA [address] [place] [address] Dr. Valles [facility] [place] [address] [phone] [facility] Start: 06-13-2019 End: 06-13-2019 Hospital Encounter [facility] Comment on above: Complete rotator cuf f tear or rupture of left shoulder, not specified as traumatic Left shoulder arthro scopy rotator cuff repair, subacromial decompression and distal clavicle excision Start: 05-29-2019 End: 05-29-2019 Office Visit 05/29/2019 Office Visit Orthopedic Surgery Alexey Green PA [address] [place] [address] [place] [address] [phone] [facility] Start: 05-16-2019 End: 05-16-2019 Hospital Encounter [facility] Comment on above: Complete rotator cuf f tear or rupture of left shoulder, not specified as traumatic Left shoulder arthro scopy rotator cuff repair, subacromial decompression and distal clavicle excision Start: 05-15-2019 End: 05-15-2019 Office Visit 05/15/2019 Office Visit Cardiology [facility] Start: 05-06-2019 End: 05-06-2019 Office Visit 05/06/2019 Office Visit Dentistry Ellie Rush DMD [facility] Start: 05-01-2019 End: 05-01-2019 Appointment 05/01/2019 Appointment [facility] V[facility] Diagnostics Odalis River MD [address] [place] [address] [phone] [facility] Start: 04-04-2019 End: 04-04-2019 Admission to same day surgery center 04/04/2019 Surgery General Surgery Howard Barrow DO [address] [facility] [address] [place] [address] [phone] Left shoulder arthroscopy rotator cuff repair, subacromial decompression and distal clavicle excision [facility] Comment on above: Left shoulder arthro scopy rotator cuff repair, subacromial decompression and distal clavicle excision Start: 04-04-2019 Subsequent hospital visit by physician 04/04/2019 Hospital Encounter General Surgery Howard Barrow, [address] [facility] [facility] [place] [id number] [phone] Complete rotator cuff tear or rupture of left shoulder, not specified as traumatic [facility] Comment on above: Complete rotator cuf f tear or rupture of left shoulder, not specified as traumatic Start: 03-10-2019 End: 03-10-2019 Patient encounter procedure [facility] Start: 03-06-2019 End: 03-06-2019 Patient encounter procedure 03/06/2019 Office Visit Dentistry Karma Abdi, BRIGID [facility] Start: 02-23-2019 Influenza vaccinatio n given INFLUENZA VACCINE (#1) [facility] Start: 2019 COLOGUARD (FIT-DNA) COLOGUARD (FIT-D NA) [facility] Start: 2019 Colonoscopy COLONOSCOPY [facility] Start: 2019 COLORECTAL CANCER SCREENING COLORECTAL CANCER SCREENING [facility] Start: [address] COLONOGRAPHY [facility] Start: 2019 FECAL OCCULT BLOOD FECAL OCCULT BLOO D [facility] Start: 2019 Screening for malign ant neoplasm of colon [facility] Start: 2019 SIGMOIDOSCOPY SIGMOIDOSCOPY [facility] Start: 2014 Screening mammography MAMMOGRAM [facility] Start: 02-19-2004 HPV TESTING HPV TESTING [facility] Start: 02-19-2004 Screening for malign ant neoplasm of cervix HPV Testing [facility] Start: 02-19-1996 DTaP/Tdap/Td Vaccine s (1 - Tdap) DTaP/Tdap/Td Vaccines (1 - Tdap) [facility] Start: 1995 Human papilloma viru s screening PAP SMEAR [facility] Start: 1995 PAP TESTING PAP TESTING [facility] Start: 1995 Screening for malign ant neoplasm of cervix [facility] Start: 1995 Tetanus, diphtheria and acellular pertussis vaccination TDAP/TD ADULT [facility] Start: 1993 Hepatitis B Vaccine (1 of 3 - 19+ 3-dose series) Hepatitis B Vaccine (1 of 3 - 19+ 3-dose series) [facility] Start: 1993 Hepatitis B Vaccines (1 of 3 - 19+ 3-dose series) Hepatitis B Vaccines (1 of 3 - 19+ 3-dose series) [facility] Start: 1993 Pneumococcal Vaccine : 50+ (1 of 2 - PCV) Pneumococcal Vaccine: 50+ (1 of 2 - PCV) [facility] Start: 1993 SHINGRIX VACCINE (1 of 2) BRADSHAW GRIX VACCINE (1 of 2) [facility] Start: 1993 Urine microalbumin profile [facility] Start: 02-19-1992 ANNUAL WELLNESS VISIT ANNUAL WELLNES S VISIT [facility] Start: 02-19-1992 Diabetes mellitus screening Diabetes Screening [facility] Start: 02-19-1992 HEPATITIS C SCREENING HEPATITIS C [facility] Start: 02-19-1992 Hepatitis C screening Hepatitis C [facility] Start: 02-19-1992 HIV SCREENING HIV SCREENING [facility] Start: 02-19-1992 HIV screening HIV Screening [facility] Start: 02-19-1992 WELLNESS ANNUAL VISIT WELLNESS ANNUA L VISIT [facility] Start: 1986 Adult depression screening assessment [facility] Start: 1986 Depression screening using PHQ-9 (Patient Health Questionnaire 9) score PHQ9 DEPRESSION SCREENING [facility] Start: 1985 Screening for malign ant neoplasm of cervix Cervical Cancer Screening [facility] Start: 02-19-1980 PNEUMOCOCCAL (1 - PCV) PNEUMOCOCCAL (1 - PCV) [facility] Start: 02-19-1980 Pneumococcal vaccination [facility] Start: 1979 COVID-19 VACCINE (#1) COVID-19 VACCI NE (#1) [facility] Start: 1975 MMR Vaccines (1 of 1 - Standard series) MMR Vaccines (1 of 1 - Standard series) [facility] Start: 1974 COVID-19 VACCINE (#1) COVID-19 VACCI NE (#1) [facility] Start: 1974 HEPATITIS B (1 of 3 - 3-dose series) HEPATITIS B (1 of 3 - 3-dose series) [facility] Start: 1974 Hepatitis B Vaccine (1 of 3 - 3-dose series) Hepatitis B Vaccine (1 of 3 - 3-dose series) [facility] Start: 1974 HIV screening HIV Screening [facility] Start: 1974 Lipid panel Lipid Panel [facility] Start: 1974 Screening for malign ant neoplasm of colon [facility] Start: 1974 Yearly Adult Physical Yearly Adult P hysical [facility] End: 03-30-2020 Basic metabolic 2000 panel - Serum or Plasma Basic metabolic panel Lab Routine Preoperative testing 1 Occurrences starting 02/28/2019 until 03/30/2020 [facility] Comment on above: 1 Occurrences starti ng 02/28/2019 until 03/30/2020 Case Request Operati ng Room: Left shoulder arthroscopy rotator cuff repair, subacromial decompression and distal clavicle excision Case Request Operating Room: Left shoulder arthroscopy rotator cuff repair, subacromial decompression and distal clavicle excision Procedures Routine Complete rotator cuff tear or rupture of left shoulder, not specified as traumatic Ordered: 02/28/2019 [facility] Comment on above: Ordered: 02/28/2019 End: 03-30-2020 CBC panel - Blood by Automated count CBC without differential Lab Routine Preoperative testing 1 Occurrences starting 02/28/2019 until 03/30/2020 [facility] Comment on above: 1 Occurrences starti ng 02/28/2019 until 03/30/2020 Endometrial bx w/wo endocervix bx w/o dilat spx ENDOMETRIAL BIOPSY Procedures Routine Postmenopausal bleeding Thickened endometrium Ordered: 09/15/2022 [facility] Work Phone: Comment on above: Ordered: 09/15/2022 End: 08-16-2020 Lexiscan Myoview Stress Test Lexiscan Myoview Stress Test Cardiac Services ESTEPHANIA Chest pain 1 Occurrences starting 07/16/2019 until 08/16/2020 [facility] Comment on above: 1 Occurrences starti ng 07/16/2019 until 08/16/2020 End: 08-26-2020 Magnesium [Mass/Vol] Magnesium Lab Routine Abnormal stress test Abnormal ECG 1 Occurrences starting 07/30/2019 until 08/26/2020 [facility] Comment on above: 1 Occurrences starti ng 07/30/2019 until 08/26/2020 Patient Education UTIs [facility] Work Phone: Patient referral [facility] Work Phone: End: 07-31-2019 Pulse Ox, Continuous Pulse Ox, Continuous Respiratory Care Routine Continuous until discontinued starting 07/30/2019 [facility] Comment on above: Continuous until dis continued starting 07/30/2019 Standard ECG EKG 12 lead - [place] nd to Physician ECG ESTEPHANIA 08/22/2019 1:39 AM [facility] [employer] [facility] End: 03-30-2020 Standard ECG EKG Order ECG Routine Preoperative testing 1 Occurrences starting 02/28/2019 until 03/30/2020 [facility] Comment on above: 1 Occurrences starti ng 02/28/2019 until 03/30/2020 End: 06-04-2019 Stress Test - Exercise (no imaging) Stress Test - Exercise (no imaging) Cardiac Services Routine Abnormal EKG Precordial chest pain 1 Occurrences starting 06/04/2019 until 06/04/2019 [facility] Comment on above: 1 Occurrences starti ng 06/04/2019 until 06/04/2019 Stress Test - Exerci se (no imaging) Stress Test - Exercise (no imaging) Cardiac Services Routine Abnormal EKG Precordial chest pain 06/04/2019 10:57 AM [facility] SURGICAL PATHOLOGY SURGICAL PATH OLOGY Lab Routine Postmenopausal bleeding Thickened endometrium 09/15/2022 4:53 PM EDT [facility] Work Phone: Urine culture [facility] End: 02-28-2020 XR Chest PA and Lateral upright XR Chest PA and lat Imaging Routine Preoperative testing 1 Occurrences starting 02/28/2019 until 02/28/2020 [facility] Comment on above: 1 Occurrences starti ng 02/28/2019 until 02/28/2020 [facility] Immunizations Immunization Date Immunization Notes Care Provider Jarrod connolly 1975 pneumococcal conjuga te vaccine, 7 valent Rocky Soto [facility] of Dermatology Payers Date Payer Category Payer Self-pay 2018 Medicaid [id number] 2017 Medicaid (Managed Care) [facility] [id number] 2017 Unknown 2016 Medicaid [place] [employer] [place] [employer] [id number] 2016-Present [phone] [address] [place] [address] Medicaid [id number] 2016 Medicaid [id number] 2003 Unknown [id number] 1974 Unknown [id number] 2.840.1.703578.3.579.2. 419 1974 Unknown [id number] 2.840.1.247911.3.579.2. 356 1974 Unknown [id number] 2.840.1.020744.3.579.2. 356 1974 Unknown [id number] 2.840.1.836673.3.579.2. 356 1974 Unknown [id number] 2.16840.1.158174.3.579.2. 1244 1974 Unknown [id number] 2.16840.1.951393.3.579.2. 297 1974 Unknown [id number] 2.16840.1.716131.3.579.2. 297 1974 Unknown [id number] 2.16840.1.017753.3.579.2. 297 Unknown [id number] 2.16.840.1.480515.3.579.2. 283 Unknown [id number] 2.16.840.1.632156.3.579.2. 283 Unknown [id number] 2.16.840.1.290044.3.579.2. 283 Unknown [id number] 2.16.840.1.929035.3.579.2. 283 Unknown [id number] 2.16840.1.331756.3.579.2. 283 Unknown [id number] 2.16.840.1.930217.3.579.2. 283 Unknown [id number] 2.16840.1.301177.3.579.2. 283 Unknown [id number] 2.840.1.166282.3.579.2. 462 Unknown [id number] 2.840.1.882146.3.579.2. 462 Unknown [id number] 2.840.1.229071.3.579.2. 528 Unknown [id number] 2.840.1.019192.3.579.2. 528 Unknown [id number] 2.840.1.994988.3.579.2. 528 Unknown [id number] 2.840.1.997255.3.579.2. 528 Unknown [id number] 2.840.1.470480.3.579.2. 528 Unknown [id number] 2.840.1.086198.3.579.2. 528 Unknown [id number] 2.840.1.818583.3.579.2. 528 Unknown [id number] 2.840.1.428816.3.579.2. 528 Unknown [id number] 2.840.1.073379.3.579.2. 528 Social History Date Type Detail Facility Start: 06-04-2019 End: 04-11-2025 Tobacco smoking status NHIS Never smoker [facility] Start: 04-24-2019 End: 06-04-2019 Alcohol intake Current non-drinker of alcohol (finding) Formerly named [facility] Start: 1975 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 Start: 02-21-2019 End: 11-10-2024 Alcohol intake No [facility] Start: 07-21-2016 End: 03-13-2023 Tobacco smoking status NDIS Ex-smoker [facility] End: 07-21-2001 History of tobacco use Current smoker [facility] End: 07-21-2001 History of tobacco use Cigarette Smoker [facility] Start: 07-21-2016 End: 03-13-2023 Tobacco use and exposure Smokeless tobacco non-user [facility] Start: 01-22-2017 History SDOH Alcohol Comment couple drinks a year [facility] Start: 09-15-2022 End: 11-10-2024 History of Social function [facility] Retired 07/24/2019 P HQ Score 0 [facility] Start: 09-24-2023 End: 10-03-2024 Exposure to SARS-CoV-2 (event) Not sure [facility] Start: 12-11-2016 Rare Rare [facility] Start: 12-11-2016 None None [facility] [facility] Start: 12-11-2016 With Family With Family [facility] Start: 12-19-2016 Secondhand Secondhand [facility] Start: 10-07-2024 Sex Female (finding) [facility] Goals Date Patient Goal Desired Activity /State Functional Status Date Assessment Result Facility 10-31-2017 Are you deaf, or do you have serious difficulty hearing No 10/31/2017 11:10 AM Diana Rosado APRN.DOOR PATCHER No [facility] Work Phone: 10-31-2017 Are you blind, or do you have serious difficulty seeing, even when wearing glasses No 10/31/2017 11:10 AM Diana Rosado APRN.CNP No [facility] 10-31-2017 Do you have serious difficulty walking or climbing stairs No 10/31/2017 11:10 AM Diana Rosado APRN.CNP No [facility] 10-31-2017 Do you have difficul ty dressing or bathing No 10/31/2017 11:10 AM Diana Rosado APRN.CNP No [facility] 10-31-2017 Because of a physica l, mental, or emotional condition, do you have difficulty doing errands alone such as visiting a physician's office or shopping No 10/31/2017 11:10 AM Diana Rosado APRN.CNP [facility] Mental Status Date Assessment Result Facility 10-07-2024 Cognitive function Level Of Cons ciousness Awake;Alert;Appropriate;Fol lows Commands [facility] Work Phone: 10-31-2017 Because of a physica l, mental, or emotional condition, do you have serious difficulty concentrating, remembering, or making decisions No 10/31/2017 11:10 AM Diana Rosado APRN.CNP [facility] Clinical Notes 11-02-2017 to 11-12-2024 Jacobo Gould, PT - 11/10/2024 12:05 PM Jacobo Carney, PT - 11/10/2024 11:31 AM Jacobo Carney, PT - 10/20/2024 2:17 PM Jacobo Carney, PT - 10/07/2024 9:06 AM EDTPatient Instructions Note Date & Type Note Facility 11-12-2024 Note HNO ID: [id number] Author: AGAPITO PHILLIP APRN.BECKY Service: ? Author Type: Nurse Practitioner Type: Progress Notes Filed: 11/12/2024 14:31 Note Text: [facility] Nivia Hermosillo is a 49 year old female. Patient presents with: Urinary Frequency: burning x 4 days HPI Nontoxic-appearing 49-year-old female presents urgent care chief complaint possible UTI. Duration of symptoms 4 days. Associated symptoms burning frequency urgency. Does have some vaginal itching. Was seen in the ED on 08 October. Diagnosed with UTI. Placed on cefdinir. States symptoms have improved some but returned again. Presents today for evaluation. OTC medications none. No vomiting abdominal pain. Episodic flank pain. Denies urological abnormalities. Past medical history prescription medications allergies reviewed Review of Systems Constitutional: Negative for chills, fatigue and fever. Gastrointestinal: Negative for abdominal distention, abdominal pain, nausea, rectal pain and vomiting. Genitourinary: Positive for dysuria, frequency and urgency. Negative for difficulty urinating, dyspareunia, flank pain, genital sores, hematuria, vaginal bleeding, vaginal discharge and vaginal pain. Objective BP 120/68 Pulse 96 Temp 36.8 ?C (98.3 ?F) Resp 16 Wt 77.2 kg (170 lb 3.1 oz) LMP (LMP Unknown) SpO2 96% BMI 27.47 kg/m? Physical Exam Constitutional: Appearance: Normal appearance. HENT: Mouth/Throat: Mouth: Mucous membranes are moist. Cardiovascular: Rate and Rhythm: Normal rate. Pulmonary: Effort: Pulmonary effort is normal. Breath sounds: Normal breath sounds. Abdominal: Tenderness: There is no abdominal tenderness. There is no right CVA tenderness, left CVA tenderness, guarding or rebound. Neurological: Mental Status: She is alert. {ASSESSMENT/PLAN: 1. Urinary frequency - ICD9: 788.41, ICD10: R35.0 - UA DIP, URINE (POC) - BACTERIAL CULTURE, URINE - PARMINDER/TRICHOMONAS NAAT - BACTERIAL VAGINOSIS NAAT Only trace amount leukocytes noted on today's urine dip. No antibiotics at today's visit. Will send urine culture off as well as vaginal self swabs. Treat accordingly test results. Patient was educated on supportive therapies. Was instructed to follow-up with [employer]NAGER [employer] or PCP next 3 to 5 days reevaluation. patient was instructed to immediately proceed to emergency room for any new, worsening, or symptoms lasting longer than anticipated. The patient's clinical presentation is otherwise unremarkable at this time. Based on exam and clinical finding, the patient is stable for discharge. Plan of care was discussed with patient. Patient verbalizes understanding and agrees to plan of care. This note was generated using Yozio software. It may contain errors in wording, punctuation, or spelling. Agapito Phillip APRN.DOOR PATCHER History and Record Review Clinical information obtained from an independent historian. History obtained from or confirmed by: parent. External record(s) reviewed: prior outpatient record. Disposition The patient was discharged. OTC Medications were advised: Procedures [facility] 11-10-2024 History of Present illness Narrative Formatting of this note might be differe nt from the original. Program_ID:[id number] Access Code: [email or web address] URL: [email or web address] Date: 11-10-2024 Prepared By: Jacobo Gould Program Notes Exercises - Supine Cervical Retraction with Towel - 2 x daily - 7 x weekly - 2-3 sets - 10 reps - Shoulder External Rotation and Scapular Retraction with Resistance - 2 x daily - 7 x weekly - 2-3 sets - 10 reps - Upper Trapezius Stretch - 2 x daily - 7 x weekly - sets - 3-4 reps - Gentle Levator Scapulae Stretch - 2 x daily - 7 x weekly - sets - 3-4 reps - Standing Upper Trapezius Mobilization with Small Ball - 1-2 x daily - 7 x weekly - sets - reps - Standing Isometric Cervical Extension with Manual Resistance - 2 x daily - 7 x weekly - 2 sets - 10 reps Images from the original note were not included. Episode Visit Count: 3 Therapist That Will Accept/Oversee The Plan Of Care: Jacobo Gould, PT. Start of Care Date: 10/07/24 Onset Date: (3 Years Ago, for certain parts of it per patient.) Plan of Care Certification Date: 11/14/24 Next Certification Due Date: 12/12/24 Patient Identified by Name and Date of : Yes REHABILITATION AND SPORTS THERAPY PHYSICAL THERAPY DISCONTINUANCE OF CARE PLAN OF CARE UPDATE: Assessment: Nivia Hermosillo is discontinued from Physical Therapy services due to maximal benefit. Patient has seen no improvements in pain or function since starting therapy and has likely reached her maximum benefit with physical therapy at this time. Subjective report and objective testing completed this date is worsening than initial evaluation x1 month ago. Patient encouraged to reach out to referring provider for updated vidal of care. Patient was seen for 3 visits from Start of Care Date: 10/07/24 to 11/10/2024 and treatment included: Therapeutic exercise, Manual therapy, and Self-prison management. Updated 11/10/24. Goals for Episode of Care: established 10/07/24 Patient reported outcome of pain Interference will decrease T -score by a minimum of 5 points. (NOT Assessed, new Promis scores did not load into chart) 2. Improve deep neck flexor strength by 4-5 seconds to help improve neck/shoulder posture. (NOT MET, Declined from IE) 3. Restore pain free cervical ROM to WNL to allow for improved ADL/IADLs. 4. Sleep throughout the night without pain/symptoms. (NOT MET, Declined from IE) 5. Maintain proper sitting posture throughout the session to allow for decreased pain and frequency of concordant sxs. (NOT MET) 6. Patient will increase strength of B scapular strength to 4+/5 to allow for improve ability to maintain proper posture. (NOT MET, Declined from IE) 7. Improve Neck Disability Index (NDI) by 7.5 points to indicate a Minimal Clinical Important Difference. (26 on eval) (NOT MET, Worse this date with a score of 29) Patient Goals: Alleviate Pain. (NOT MET) SUBJECTIVE: States she is in a lot of pain today. Missed her last two appointments. States she believes her pain is worse because she is out of weed/edibles/capsules. States without it she is in so much pain and there is noting like it that helps her pain. States pain management will not give her anything for the pain, only steriods every now and then. Has not seen referring provider comprehensive pain management specialists in [place] since starting PT, was to call in once done with therapy. Functional Limitations: sleeping, physical activities, Comments Functional Limitation Comments: (Pain with neck movements). Spine History Symptoms Location at Onset: Neck Symptoms Since Onset: Worsening Sleeping Position: Recliner (Typically, recliner - recently has been sleeping in bed and has been worse.) Sleep Affected by Pain: Pain keeps from falling asleep Pain: Pain Pain Level: 7 Pain Location: Neck - Left, Neck - Right Description: Aching Frequency: Intermittent Post Treatment Pain Post Treatment Pain Level: No Change Post Treatment Pain Location: Neck PROMIS Scales 11/10/2024 10/20/2024 10/07/2024 Higher is Better Phys Func - T Score 38 (moderate dysfunction) Phys Func - Percentile 12 Self-Eff Symptom - T Score 41 (Average) 36 (Low) Self-Eff Symptom - Percentile 18 8 Proxy-reported 10/07/2024 Lower is Better Pain Interference - T Score 63 (moderate) Pain Interference - Percentile 10 Proxy-reported T-scores: mean of general population = 50. 5 points is clinically meaningfully difference Percentiles provide an indication of how the patient's score ranks in relation to the general population. Higher percentile rankings indicate better function/quality of life. 50th percentile is the average of the general population and indicates half of respondents had a worse score. OBJECTIVE MEASURES WITH LEVEL OF FUNCTION: Posture / Alignment Posture: Forward head, Rounded shoulders Spine Observations R Cervical Spine Palpation Tenderness: Upper trapezius, Levator scapulae, Paraspinals, Suboccipitals L Cervical Spine Palpation Tenderness: Upper trapezius, Levator scapulae, Paraspinals, Suboccipitals Sensation - Cervical Spine Cervical Spine Sensation: Grossly Intact Cervical Spine ROM Cervical Flexion AROM (degrees) : 35 Degrees Cervical Extension AROM (degrees) : 40 Degrees Cervical Side-Bend Right AROM (degrees): 40 Degrees Cervical Side-Bend Left AROM (degrees) : 40 Degrees (Worse pain to left) Cervical Rotation Right AROM (degrees) : 35 Degrees (7/10 pain.) Cervical Rotation Left AROM (degrees) : 50 Degrees UE Flexibility R Upper Trapezius Flexibilty Comments: Poor L Upper Trapezius Flexibility Comments: Poor UE and Cervical Strength Cervical Strength: Grossly 4+/5 Deep Neck Flexor Endurance: 4 Sec. R UE Strength: Grossly 4/5 Shoulder and Scapular, L UE Strength: Grossly 4/5 Shoulder and Scapular, Special Tests - Cervical Cervical Special Tests: Spurling Cervical Compression: Positive Cervical Distraction: Negative (Painful for Patient) Spurling: Right Negative, Left Negative Curiel's: Right Negative, Left Negative Gait Gait Observation: Un-remarkable. TREATMENT: Therapeutic Exercise: 1: *Neck Retraction Iso in Sitting: x10, 5-sec. 2: Re-assessment & discussion on patients progress + condition. Goals assessed and reviewed. 3: HEP was reviewed and the patient was instructed to continue with HEP to tolerance. Discussed completing parameters as instructed based on professional judgement. Skilled Intervention: Patient was educated in proper exercise technique and purpose for exercises. Reviewed and educated patient on additions/changes for home exercise program as above (*). Skilled judgment was used in selection of appropriate interventions. Provided written instruction for home exercise program to facilitate proper performance and compliance. Correct performance of therapeutic exercises was facilitated with verbal cuing. Patient education as noted. Self-Detention Management: 1: *Discussed modifying painful activities or positions; Discussed avoiding exercises or activities that cause INC pain, not just discomofrt/soreness 2: *Discussed discontinuing PT with patient due to no progression in pain & overall function currently. Patient to schedule appointment with referring provider for updated POC, will reach out to PT if needing anything further. 3: *Reviewed NDI subjective questionaire and objective/exam findings and compared to IE. Skilled Intervention: Skilled judgment in the selection of proper modification for activity of daily living/home management based on clinical presentation, deficits, and needs. Billing Therapeutic Exercise Treatment Minutes: 23 Self-Care/Home Management Treatment Minutes: 18 Skilled Treatment Time Minutes (timed and untimed codes): 41 Total Session Time (minutes): 41 Session Start Time : 1131 Session Stop Time : 1212 Jacobo Gould PT documented in this encounter [facility] 11-10-2024 Note HNO ID: [id number] Author: JACOBO GOULD PT Service: ? Author Type: Physical Therapist Type: Progress Notes Filed: 11/10/2024 14:10 Note Text: Episode Visit Count: 3 Therapist That Will Accept/Oversee The Plan Of Care: Jacobo Gould PT. Start of Care Date: 10/07/24 Onset Date: (3 Years Ago, for certain parts of it per patient.) Plan of Care Certification Date: 11/14/24 Next Certification Due Date: 12/12/24 Patient Identified by Name and Date of : Yes REHABILITATION AND SPORTS THERAPY PHYSICAL THERAPY DISCONTINUANCE OF CARE PLAN OF CARE UPDATE: Assessment: Nivia Hermosillo is discontinued from Physical Therapy services due to maximal benefit. Patient has seen no improvements in pain or function since starting therapy and has likely reached her maximum benefit with physical therapy at this time. Subjective report and objective testing completed this date is worsening than initial evaluation x1 month ago. Patient encouraged to reach out to referring provider for updated vidal of care. Patient was seen for 3 visits from Start of Care Date: 10/07/24 to 11/10/2024 and treatment included: Therapeutic exercise, Manual therapy, and Self-prison management. Updated 11/10/24. Goals for Episode of Care: established 10/07/24 Patient reported outcome of pain Interference will decrease T -score by a minimum of 5 points. (NOT Assessed, new Promis scores did not load into chart) 2. Improve deep neck flexor strength by 4-5 seconds to help improve neck/shoulder posture. (NOT MET, Declined from IE) 3. Restore pain free cervical ROM to WNL to allow for improved ADL/IADLs. 4. Sleep throughout the night without pain/symptoms. (NOT MET, Declined from IE) 5. Maintain proper sitting posture throughout the session to allow for decreased pain and frequency of concordant sxs. (NOT MET) 6. Patient will increase strength of B scapular strength to 4+/5 to allow for improve ability to maintain proper posture. (NOT MET, Declined from IE) 7. Improve Neck Disability Index (NDI) by 7.5 points to indicate a Minimal Clinical Important Difference. (26 on eval) (NOT MET, Worse this date with a score of 29) Patient Goals: Alleviate Pain. (NOT MET) SUBJECTIVE: States she is in a lot of pain today. Missed her last two appointments. States she believes her pain is worse because she is out of weed/edibles/capsules. States without it she is in so much pain and there is noting like it that helps her pain. States pain management will not give her anything for the pain, only steriods every now and then. Has not seen referring provider comprehensive pain management specialists in [place] since starting PT, was to call in once done with therapy. Functional Limitations: sleeping, physical activities, Comments Functional Limitation Comments: (Pain with neck movements). Spine History Symptoms Location at Onset: Neck Symptoms Since Onset: Worsening Sleeping Position: Recliner (Typically, recliner - recently has been sleeping in bed and has been worse.) Sleep Affected by Pain: Pain keeps from falling asleep Pain: Pain Pain Level: 7 Pain Location: Neck - Left, Neck - Right Description: Aching Frequency: Intermittent Post Treatment Pain Post Treatment Pain Level: No Change Post Treatment Pain Location: Neck PROMIS Scales 11/10/2024 10/20/2024 10/07/2024 Higher is Better Phys Func - T Score 38 (moderate dysfunction) Phys Func - Percentile 12 Self-Eff Symptom - T Score 41 (Average) 36 (Low) Self-Eff Symptom - Percentile 18 8 Proxy-reported 10/07/2024 Lower is Better Pain Interference - T Score 63 (moderate) Pain Interference - Percentile 10 Proxy-reported T-scores: mean of general population = 50. 5 points is clinically meaningfully difference Percentiles provide an indication of how the patient's score ranks in relation to the general population. Higher percentile rankings indicate better function/quality of life. 50th percentile is the average of the general population and indicates half of respondents had a worse score. OBJECTIVE MEASURES WITH LEVEL OF FUNCTION: Posture / Alignment Posture: Forward head, Rounded shoulders Spine Observations R Cervical Spine Palpation Tenderness: Upper trapezius, Levator scapulae, Paraspinals, Suboccipitals L Cervical Spine Palpation Tenderness: Upper trapezius, Levator scapulae, Paraspinals, Suboccipitals Sensation - Cervical Spine Cervical Spine Sensation: Grossly Intact Cervical Spine ROM Cervical Flexion AROM (degrees) : 35 Degrees Cervical Extension AROM (degrees) : 40 Degrees Cervical Side-Bend Right AROM (degrees): 40 Degrees Cervical Side-Bend Left AROM (degrees) : 40 Degrees (Worse pain to left) Cervical Rotation Right AROM (degrees) : 35 Degrees (7/10 pain.) Cervical Rotation Left AROM (degrees) : 50 Degrees UE Flexibility R Upper Trapezius Flexibilty Comments: Poor L Upper Trapezius Flexibility Comments: Poor UE an (more content not included)... [facility] 10-23-2024 [place] [address] HEALTH INFORMATION MANAGEMENT PROCEDURE REPORT : [id number] Signed Patient: NIVIA HERMOSILLO Acct:[id number] MRUN: Colleen [id number] : 1975 Sex: F Loc: 3OP ADM Date: Room/Bed: DISC Date: Procedure - PROCEDURES PERFORMED esophagogastroduodenoscopy with biopsy PROCEDURE NOTE: Pt was taken to endoscopy room and laid in left lateral decubitus position. After induction of sedation, the Olympus endoscope was inserted in the mouth and through the esophagus, stomach, up to the afferent jejunum. The upper esophagus was normal without strictures, webs, rings or unusual tortuosity. There was no no obvious hiatal hernia. The Z line was slightly irregular at 35cm with minimal if any reflux esophagitis. The stomach pouch was of adequate size and healthy gastric jejunal anastomosis without marginal ulcers. The gastric mucosa was normal. The afferent jejunum was evaluated approximately one foot distally and was also normal without inflammation or ulcers. The candy-cane part of the anastomosis was not excessively long. Mid esophageal biopsies were obtained with cold forceps and minimal bleeding given her past reported eosinophilic esophagitis. The scope was then removed. The patient tolerated the procedure well. No obvious oropharyngeal abnormalities were noted either. COMPLICATIONS: none Hot biopsy forceps: NO Biopsy forceps: YES Snare: NO Needle Injection: NO DATE OF SERVICE: 10/23/24 SURGEON: CLARISSA FISH REGULATORY TECHNICIAN: none ENVIRONMENTAL FIELD TEAM MEMBER: PHILIP CANAS TYPE OF ANESTHESIA: Conscious Sedation Preoperative Diagnosis: Esophageal dysphagia, eosinophilic esophagitis Postoperative Diagnosis: same Allergies/Adverse Reactions: tree nut Allergy (Severe, Verified 10/23/24 09:42) Shock-Unconsciousness adhesive tape Allergy (Verified 10/23/24 09:42) Skin Rash - Hives ALLERGIC ONLY TO ENTERPRISE SALES PERSON PATCHES banana Allergy (Verified 10/23/24 09:42) UNKNOWN butalbital [From Fioricet] Allergy (Verified 10/23/24 09:42) BAD HEADACHE hydrocodone Allergy (Verified 10/23/24 09:42) UNKNOWN ketorolac [From Toradol] Allergy (Verified 10/23/24 09:42) UNKNOWN macadamia nut oil Allergy (Verified 10/23/24 09:42) UNKNOWN oats Allergy (Verified 10/23/24 09:42) UNKNOWN onion Allergy (Verified 10/23/24 09:42) UNKNOWN peanut oil Allergy (Verified 10/23/24 09:42) UNKNOWN Yeast Allergy (Verified 10/23/24 09:42) GI PROBLEMS cephalexin [From Keflex] Adverse Reaction (Verified 10/23/24 09:42) INTESTINAL PROBLEMS guaifenesin Adverse Reaction (Verified 10/23/24 09:42) INTESTINAL PROBLEMS latex Adverse Reaction (Verified 10/23/24 09:42) Skin Rash - Hives loose stools CORN OIL Allergy (Uncoded 10/23/24 09:42) UNKNOWN Hydrocodone-Guaifenesin Allergy (Uncoded 10/23/24 09:42) UNKNOWN Nuts Other Than Peanuts Allergy (Uncoded 10/23/24 09:42) UNKNOWN ROXANOL Allergy (Uncoded 10/23/24 09:42) UNKNOWN WHEAT BRAN Allergy (Uncoded 10/23/24 09:42) UNKNOWN Condition: Good IMPRESSION: normal post gastric bypass upper GI anatomy. path pending EBL: 1 mL specimen: mid esophageal biopsies Continue Current Course of Treatment FOLLOW-UP: Two Weeks NEW ORDERS: Medications 10/23/24 10:12 Normal Saline 0.9% 1000 ml [Sodium Chloride 0.9 % 1000 ml] 1,000 ml IV 50 mls/hr Electronically Generated By: CLARISSA FISH MD Generated Date/Time: 10/23/24 1144 Electronically Signed By: 10/23/24 1150 Co Signed Electronically By: Co Signed Date/Time: CC: BESSIE KIRK DO; CLARISSA FISH MD [facility] 10-20-2024 Note HNO ID: [id number] Author: JACOBO GOULD, PT Service: ? Author Type: Physical Therapist Type: Progress Notes Filed: 10/20/2024 14:56 Note Text: Episode Visit Count: 2 Therapist That Will Accept/Oversee The Plan Of Care: Jacobo Gould PT. Start of Care Date: 10/07/24 Onset Date: (3 Years Ago, for certain parts of it per patient.) Plan of Care Certification Date: 10/07/24 Next Certification Due Date: 11/14/24 Patient Identified by Name and Date of : Yes REHABILITATION AND SPORTS THERAPY PHYSICAL THERAPY TREATMENT NOTE ASSESSMENT: Nivia Hermosillo tolerated the session with decreased symptoms. She demonstrated improvements in symptom relief following MT.. The patient will continue to benefit from ongoing skilled physical therapy to progress toward set goals. PLAN FOR NEXT VISIT: MT AND Traction. Scap Strength. SUBJECTIVE: Since /13 days ago, pain has been tolerable. States she has not done a lot of her exercises because she is moving. States some light pain in the posterior left neck today, describes as a catch. Sleeping in a chair now which is better for her than a bed and couch. Pain: Pain Pain Level: 1 Pain Location: Neck - Left Description: Aching Frequency: Intermittent Post Treatment Pain Post Treatment Pain Level: 0 Post Treatment Pain Location: Shoulder - Right OBJECTIVE MEASURES WITH LEVEL OF FUNCTION: Good form demonstrated throughout session and completion of ther-ex. TREATMENT: Therapeutic Exercise: 1: [place] Wall STretch: 3x30. 2: [place] Wall STretch: 3x30. 3: UT Stretch, arm behind back: 2x30 each. (Cued for ear to shoulder) 4: LS Stretch in seated: 2x30 each. 5: HL Chin Tucks: 2x8, 3sec hold. Skilled Intervention: Patient was educated in proper exercise technique and purpose for exercises. Skilled judgment was used in selection of appropriate interventions. Correct performance of therapeutic exercises was facilitated with verbal cuing. Manual Therapy: Soft Tissue Mobilization: B UT STM, L UT AND LS TPR x10 each. Manual Traction: Manual Cervical Traction: 2 x 4 min. Skilled Intervention: Manual skills to improve joint mobility, ROM, and decrease pain. Utilized anatomy knowledge of the clinician, and assessment of patient's response to intervention. Billing Therapeutic Exercise Treatment Minutes: 24 Manual TherapyTreatment Minutes: 15 Skilled Treatment Time Minutes (timed and untimed codes): 39 Total Session Time (minutes): 39 Session Start Time : 1417 Session Stop Time : 1456 Jacobo Gould PT [facility] 10-20-2024 History of Present illness Narrative Formatting of this note might be differe nt from the original. Episode Visit Count: 2 Therapist That Will Accept/Oversee The Plan Of Care: Jacobo Gould PT. Start of Care Date: 10/07/24 Onset Date: (3 Years Ago, for certain parts of it per patient.) Plan of Care Certification Date: 10/07/24 Next Certification Due Date: 11/14/24 Patient Identified by Name and Date of : Yes REHABILITATION AND SPORTS THERAPY PHYSICAL THERAPY TREATMENT NOTE ASSESSMENT: Nivia Hermosillo tolerated the session with decreased symptoms. She demonstrated improvements in symptom relief following MT.. The patient will continue to benefit from ongoing skilled physical therapy to progress toward set goals. PLAN FOR NEXT VISIT: MT & Traction. Scap Strength. SUBJECTIVE: Since /13 days ago, pain has been tolerable. States she has not done a lot of her exercises because she is moving. States some light pain in the posterior left neck today, describes as a catch. Sleeping in a chair now which is better for her than a bed and couch. Pain: Pain Pain Level: 1 Pain Location: Neck - Left Description: Aching Frequency: Intermittent Post Treatment Pain Post Treatment Pain Level: 0 Post Treatment Pain Location: Shoulder - Right OBJECTIVE MEASURES WITH LEVEL OF FUNCTION: Good form demonstrated throughout session and completion of ther-ex. TREATMENT: Therapeutic Exercise: 1: [place] Wall STretch: 3x30. 2: [place] Wall STretch: 3x30. 3: UT Stretch, arm behind back: 2x30 each. (Cued for ear to shoulder) 4: LS Stretch in seated: 2x30 each. 5: HL Chin Tucks: 2x8, 3sec hold. Skilled Intervention: Patient was educated in proper exercise technique and purpose for exercises. Skilled judgment was used in selection of appropriate interventions. Correct performance of therapeutic exercises was facilitated with verbal cuing. Manual Therapy: Soft Tissue Mobilization: B UT STM, L UT & LS TPR x10 each. Manual Traction: Manual Cervical Traction: 2 x 4 min. Skilled Intervention: Manual skills to improve joint mobility, ROM, and decrease pain. Utilized anatomy knowledge of the clinician, and assessment of patient's response to intervention. Billing Therapeutic Exercise Treatment Minutes: 24 Manual TherapyTreatment Minutes: 15 Skilled Treatment Time Minutes (timed and untimed codes): 39 Total Session Time (minutes): 39 Session Start Time : 1417 Session Stop Time : 1456 Jacobo Gould PT documented in this encounter [facility] 10-07-2024 History of Present illness Narrative Formatting of this note might be differe nt from the original. Program_ID:[id number] Access Code: [email or web address] URL: [email or web address] Date: 10-07-2024 Prepared By: Jacobo Gould Program Notes Exercises - Supine Cervical Retraction with Towel - 2 x daily - 7 x weekly - 2-3 sets - 10 reps - Shoulder External Rotation and Scapular Retraction with Resistance - 2 x daily - 7 x weekly - 2-3 sets - 10 reps - Upper Trapezius Stretch - 2 x daily - 7 x weekly - sets - 3-4 reps - Gentle Levator Scapulae Stretch - 2 x daily - 7 x weekly - sets - 3-4 reps - Standing Upper Trapezius Mobilization with Small Ball - 1-2 x daily - 7 x weekly - sets - reps Images from the original note were not included. Episode Visit Count: 1 Therapist That Will Accept/Oversee The Plan Of Care: Jacobo Gould PT. Start of Care Date: 10/07/24 Onset Date: (3 Years Ago, for certain parts of it per patient.) Plan of Care Certification Date: 10/07/24 Next Certification Due Date: 11/14/24 Patient Identified by Name and Date of : Yes REHABILITATION AND SPORTS THERAPY PHYSICAL THERAPY EVALUATION PLAN OF CARE: PATIENT WILL NEED AN ORDER BEFORE 2nd Visit - She is reaching out to her referring provider. Will resend POC when ordered received. Assessment: Nivia Hermosillo presents with chief complaint of migraines and bilateral neck myofascial pain (L > R) that interferes with sleeping, physical activities, reaching overhead, use hand with arm at shoulder level . The patient presents with impairments in ADL's, flexibility, independence in exercise, overall function, patient reported outcome measures, posture, range of motion, soft tissue healing, strength, symptom management, and tissue tenderness. PROMIS (Patient-Reported Outcomes Measurement Information System) scores were reviewed and identified as a rehabilitation concern. Prognosis for therapy is Good due to: current objective clinical presentation, positive past response to therapy, Prognosis may be limited due to chronic nature of impairments . The patient will benefit from skilled therapy services to meet the goals established for this plan of care as noted below. Goals for Episode of Care: established 10/07/24 Patient reported outcome of pain Interference will decrease T -score by a minimum of 5 points. 2. Improve deep neck flexor strength by 4-5 seconds to help improve neck/shoulder posture. 3. Restore pain free cervical ROM to WNL to allow for improved ADL/IADLs. 4. Sleep throughout the night without pain/symptoms. 5. Maintain proper sitting posture throughout the session to allow for decreased pain and frequency of concordant sxs. 6. Patient will increase strength of B scapular strength to 4+/5 to allow for improve ability to maintain proper posture. 7. Improve Neck Disability Index (NDI) by 7.5 points to indicate a Minimal Clinical Important Difference. Patient Goals: Alleviate Pain. Time Frame for Goals and Treatment : 12/02/24 Planned Interventions, Frequency, and Duration: Current Frequency: 1x/week Duration: 5 weeks Total Number of Visits Planned: 5 Planned Treatment Interventions: Therapeutic exercise (54486), Neuromuscular re-education (09104), Manual therapy (36144), Therapeutic activities (83748), Self-prison management (96560), Patient/Family/Caregiver Education PLAN FOR NEXT VISIT: Review, correct and progress HEP as tolerated. Postural strengthening. Manual for soft tissue restrictions. Traction for pain relief. Patient demonstrates good understanding of plan of care and treatment. The above goals and plan of care were discussed and agreed upon by patient/family. SUBJECTIVE: Sent here from [facility] in [place]. No order present. Has pain in the midline of the cervical spine and Left Trap area. Trap area bothers her with reaching up and to far left. Pulls and feels like someone yanked it. Rx'd steriods for this, calmed down a little. Has gotten trigger point injections there. was looking to do Epidural. Abalation last year. Pain management thinks her migraines are caused by neck pain, patient disagrees. Migraines have not been as bad recently, however states frequency is 2-3 times a week, 10+hrs. Can have up to 15-20 month. Pain starts behind R eye, to behind ear, and notes hearing whistling noise. States she has been maxed out on all migraine medications before. Takes ubrovi 50mg. Patient Goals: Alleviate Pain. Functional Limitations: sleeping, physical activities, reaching overhead, use hand with arm at shoulder level Prior Level of Function: Independent without limitations Relevant History Past Relevant Medical Conditions: Comments Relevant Medical Conditions Comments: Anxiety, Athma, A-Fib (No further episodes), Migraines, PE, Ventricular TachyCardia. Right or Left Handed: Right Employment: Unemployed (Trying to get on disability.) Intake Information: (Not present. Patient to obtain following appt.) Previous Treatment: Steroids , Heat (Trigger Point Injections; Ablations,Ubrovi,) Falls Interview: No positive findings with falls interview Red Flags Vertebral Fracture Red Flags: Female Vertebral Fracture Clinical Reasoning: Proceed with caution due to the above (1-2) risk factors Cancer Red Flags: Age >50 or <20, Unexplained weight loss >10 lbs Unexplained Weight Loss Comments: States Kind of, states cannot eat right now due to mucus buildup. Cancer Clinical Reasoning: Proceed with caution Infection Clinical Reasoning: No identified risk factors. Cervical Arterial Dysfunction Clinical Reasoning: Proceed with caution Cervical Myelopathy: Age > 45 yo Cervical Myelopathy Diagnostic Rule: Proceed with caution Red Flags - Cervical Cancer Red Flags: Age >50 or <20, Unexplained weight loss >10 lbs Unexplained Weight Loss Comments: States Kind of, states cannot eat right now due to mucus buildup. Cancer Clinical Reasoning: Proceed with caution Infection Clinical Reasoning: No identified risk factors. Cervical Arterial Dysfunction Clinical Reasoning: Proceed with caution Cervical Myelopathy: Age > 45 yo Cervical Myelopathy Diagnostic Rule: Proceed with caution Spine History Symptoms Location at Onset: Neck Sleeping Position: Recliner (Typically, recliner - recently has been sleeping in bed and has been worse.) Sleep Affected by Pain: Pain keeps from falling asleep Pain: Pain Pain Level: 2 Pain Location: Neck - Left Description: Aching Frequency: Intermittent Detailed Pain Score: Yes Worst Pain Level: 8 Average Pain Level: 4 Best Pain Level: 2 PROMIS Scales 10/07/2024 Higher is Better Self-Eff Symptom - T Score 36 (Low) Self-Eff Symptom - Percentile 8 Proxy-reported 10/07/2024 Lower is Better Pain Interference - T Score 63 (moderate) Pain Interference - Percentile 10 Proxy-reported T-scores: mean of general population = 50. 5 points is clinically meaningfully difference Percentiles provide an indication of how the patient's score ranks in relation to the general population. Higher percentile rankings indicate better function/quality of life. 50th percentile is the average of the general population and indicates half of respondents had a worse score. OBJECTIVE MEASURES WITH LEVEL OF FUNCTION: Posture / Alignment Posture: Forward head, Rounded shoulders Spine Observations R Cervical Spine Palpation Tenderness: Upper trapezius, Levator scapulae, Paraspinals, Suboccipitals L Cervical Spine Palpation Tenderness: Upper trapezius, Levator scapulae, Paraspinals, Suboccipitals Cervical Spine ROM Cervical ROM : Measurement AROM Cervical Flexion AROM (degrees) : 45 Degrees Cervical Extension AROM (degrees) : 35 Degrees Cervical Side-Bend Right AROM (degrees): 35 Degrees Cervical Side-Bend Left AROM (degrees) : 35 Degrees Cervical Rotation Right AROM (degrees) : 50 Degrees Cervical Rotation Left AROM (degrees) : 50 Degrees UE Flexibility Flexibility: Upper Trapezius R Upper Trapezius Flexibilty Comments: Poor L Upper Trapezius Flexibility Comments: Poor UE and Cervical Strength Strength Tested: Cervical, Myotome Cervical/Shoulder Cervical Strength: Grossly 4+/5 Deep Neck Flexor Endurance: 7 Sec R UE Strength: Grossly 4+/5. Scapular (Mid & Low Trap 4/5). L UE Strength: Grossly 4+/5. Scapular (Mid & Low Trap 4/5). Special Tests - Cervical Cervical Special Tests: Cervical Distraction, Cervical Compression, Hoffmans, Flexion-Rotation Test Cervical Compression: Negative Cervical Distraction: Negative Curiel's: Right Negative, Left Negative Flexion-Rotation Test: Right Negative, Left Negative Gait Gait Observation: Un-remarkable. Education: Education Learning Preferences: Demonstration, Explanation, Printed Materials Barriers: None Learning/educational needs: Home exercise program, Safety, Plan of Care, Health promotion Education Provided: Yes, see treatment interventions for education provided Education Provided To: Patient Education Mode/Type: Demonstration, Explanation/Discussion, Literature/Printed Materials Response to Education/Teach Back: States/Identifies TREATMENT: PT Treatment Interventions: Therapeutic Exercise Evaluation Therapeutic Exercise: 1: Reviewed HEP Exercises. PT provided demonstration and cueing of exercises for proper completion. Pt demonstrated understanding. 2: Discussed therapy goals, exercise purpose, HEP handout provided. Discussed exam findings. 3: *ER Pull-Aparts: x10, GTB. 4: *HL Chin Tucks: x10, 3-5sec hold. Discussed no lifting the head off table. 5: *UT Stretch, arm behind back: x30 each. 6: *LS Stretch in seated: x30 each. 7: *Discussed the purpose of STM using lacrosse ball vs wall for irritated soft tissue. Explained how to perform STM properly and frequency 4-5 times a day for 5-10 minutes each. 8: Discussed differential diagnosis today, showed patient Travell and Fragoso referral patterns for irritated soft tissue and discussed treatment options including massage, soft tissue mobilization, exercise, and dry needling. Skilled Intervention: Patient was educated in proper exercise technique and purpose for exercises. Reviewed and educated patient on additions/changes for home exercise program as above (*). Skilled judgment was used in selection of appropriate interventions. Provided written instruction for home exercise program to facilitate proper performance and compliance. Correct performance of therapeutic exercises was facilitated with verbal and tactile cuing. Patient education as noted () Billing * Evaluation Low Complexity: 1 Unit Therapeutic Exercise Treatment Minutes: 24 Skilled Treatment Time Minutes (timed and untimed codes): 45 Total Session Time (minutes): 48 Session Start Time : 826 Session Stop Time : 914 Jacobo Gould PT documented in this encounter [facility] 10-07-2024 Note HNO ID: [id number] Author: JACOBO GOULD PT Service: ? Author Type: Physical Therapist Type: Progress Notes Filed: 10/08/2024 07:02 Note Text: Episode Visit Count: 1 Therapist That Will Accept/Oversee The Plan Of Care: Jacobo Gould PT. Start of Care Date: 10/07/24 Onset Date: (3 Years Ago, for certain parts of it per patient.) Plan of Care Certification Date: 10/07/24 Next Certification Due Date: 11/14/24 Patient Identified by Name and Date of : Yes REHABILITATION AND SPORTS THERAPY PHYSICAL THERAPY EVALUATION PLAN OF CARE: PATIENT WILL NEED AN ORDER BEFORE 2nd Visit - She is reaching out to her referring provider. Will resend POC when ordered received. Assessment: Nivia Hermosillo presents with chief complaint of migraines and bilateral neck myofascial pain (L > R) that interferes with sleeping, physical activities, reaching overhead, use hand with arm at shoulder level . The patient presents with impairments in ADL's, flexibility, independence in exercise, overall function, patient reported outcome measures, posture, range of motion, soft tissue healing, strength, symptom management, and tissue tenderness. PROMIS? (Patient-Reported Outcomes Measurement Information System) scores were reviewed and identified as a rehabilitation concern. Prognosis for therapy is Good due to: current objective clinical presentation, positive past response to therapy, Prognosis may be limited due to chronic nature of impairments . The patient will benefit from skilled therapy services to meet the goals established for this plan of care as noted below. Goals for Episode of Care: established 10/07/24 Patient reported outcome of pain Interference will decrease T -score by a minimum of 5 points. 2. Improve deep neck flexor strength by 4-5 seconds to help improve neck/shoulder posture. 3. Restore pain free cervical ROM to WNL to allow for improved ADL/IADLs. 4. Sleep throughout the night without pain/symptoms. 5. Maintain proper sitting posture throughout the session to allow for decreased pain and frequency of concordant sxs. 6. Patient will increase strength of B scapular strength to 4+/5 to allow for improve ability to maintain proper posture. 7. Improve Neck Disability Index (NDI) by 7.5 points to indicate a Minimal Clinical Important Difference. (26 on eval) Patient Goals: Alleviate Pain. Time Frame for Goals and Treatment : 12/02/24 Planned Interventions, Frequency, and Duration: Current Frequency: 1x/week Duration: 5 weeks Total Number of Visits Planned: 5 Planned Treatment Interventions: Therapeutic exercise (30426), Neuromuscular re-education (91000), Manual therapy (21495), Therapeutic activities (05756), Self-prison management (10819), Patient/Family/Caregiver Education PLAN FOR NEXT VISIT: Review, correct and progress HEP as tolerated. Postural strengthening. Manual for soft tissue restrictions. Traction for pain relief. Patient demonstrates good understanding of plan of care and treatment. The above goals and plan of care were discussed and agreed upon by patient/family. SUBJECTIVE: Sent here from [facility] in [place]. No order present. Has pain in the midline of the cervical spine and Left Trap area. Trap area bothers her with reaching up and to far left. Pulls and feels like someone yanked it. Rx'd steriods for this, calmed down a little. Has gotten trigger point injections there. was looking to do Epidural. Abalation last year. Pain management thinks her migraines are caused by neck pain, patient disagrees. Migraines have not been as bad recently, however states frequency is 2-3 times a week, 10+hrs. Can have up to 15-20 month. Pain starts behind R eye, to behind ear, and notes hearing whistling noise. States she has been maxed out on all migraine medications before. Takes ubrovi 50mg. Patient Goals: Alleviate Pain. Functional Limitations: sleeping, physical activities, reaching overhead, use hand with arm at shoulder level Prior Level of Function: Independent without limitations Relevant History Past Relevant Medical Conditions: Comments Relevant Medical Conditions Comments: Anxiety, Athma, A-Fib (No further episodes), Migraines, PE, Ventricular TachyCardia. Right or Left Handed: Right Employment: Unemployed (Trying to get on disability.) Intake Information: (Not present. Patient to obtain following appt.) Previous Treatment: Steroids , Heat (Trigger Point Injections; Ablations,Ubrovi,) Falls Interview: No positive findings with falls interview Red Flags Vertebral Fracture Red Flags: Female Vertebral Fracture Clinical Reasoning: Proceed with caution due to the above (1-2) risk factors Cancer Red Flags: Age >50 or <20, Unexplained weight loss >10 lbs Unexplained Weight Loss Comments: States Kind of, states cannot eat right now due to mucus buildup. Cancer Clinical Reasoning: Proceed with caution Inf (more content not included)... [facility] 10-03-2024 History of Present illness Narrative Formatting of this note is different fro m the original. Subjective Nivia Hermosillo is a 49 y.o. female who presents for the following: Psoriasis. Review of Systems: No other skin or systemic complaints other than what is documented elsewhere in the note. The following portions of the chart were reviewed this encounter and updated as appropriate: Skin Cancer History No skin cancer on file. Specialty Problems None Past Medical History: Nivia Hermosillo has no past medical history on file. Past Surgical History: Nivia Hermosillo has no past surgical history on file. Family History: Patient family history is not on file. Social History: Nivia Hermosillo reports that she has never smoked. She has never used smokeless tobacco. No history on file for alcohol use and drug use. Allergies: Patient has no known allergies. Current Medications / CAM's: Current Outpatient Medications: Auvelity 45-105 mg tablet, IR and ER, biphasic, Take 1 tablet by mouth 2 times a day. DIRECTED, Disp: , Rfl: acetylcysteine 600 mg capsule capsule, take 1 capsule by mouth IN THE MORNING and 2 capsules IN THE EVENING, Disp: , Rfl: albuterol 90 mcg/actuation inhaler, Inhale 2 puffs every 4 hours if needed., Disp: , Rfl: amitriptyline (Elavil) 50 mg tablet, take 1 tablet by mouth at bedtime Oral for 30, Disp: , Rfl: puhdwls-vsdeibvipeoqy-hiegqqud (Excedrin Migraine) 250-250-65 mg tablet, Take 1 tablet by mouth., Disp: , Rfl: calcium carbonate (Oscal) 500 mg calcium (1,250 mg) tablet, every 12 hours., Disp: , Rfl: cyanocobalamin, vitamin B-12, (Vitamin B-12) 1,000 mcg tablet extended release, Take 1 tablet (1,000 mcg) by mouth once daily., Disp: , Rfl: DULoxetine (Cymbalta) [address] capsule, take 1 capsule by mouth every morning take with 60 milligram capsules Orally, Disp: , Rfl: Dupixent Syringe 300 mg/2 mL syringe injection, Subcutaneous for 14 Days, Disp: , Rfl: ferrous sulfate 325 (65 Fe) MG EC tablet, Take 1 tablet by mouth., Disp: , Rfl: gabapentin (Neurontin) 100 mg capsule, Take 1 capsule (100 mg) by mouth 3 times a day., Disp: , Rfl: hydrocortisone 2.5 % cream, Thin coat to affected skin twice daily for 3-4 weeks as needed., Disp: 60 g, Rfl: 0 hydrOXYzine HCL (Atarax) 25 mg tablet, Take 1 tablet (25 mg) by mouth every 6 hours if needed., Disp: , Rfl: ketoconazole (NIZOral) 2 % cream, apply topically to CORNERS OF THE MOUTH twice a day UNTIL CLEAR External for 30, Disp: , Rfl: ketoconazole 1 % shampoo, Apply 1 Application topically., Disp: , Rfl: meclizine (Antivert) 25 mg tablet, once every 24 hours., Disp: , Rfl: metroNIDAZOLE (Metrocream) 0.75 % cream, 1 Application every 12 hours., Disp: , Rfl: naproxen (Naprosyn) 500 mg tablet, Take 1 tablet (500 mg) by mouth every 12 hours if needed., Disp: , Rfl: Nurtec ODT 75 mg tablet,disintegrating, place 1 tablet on top of the tongue and ALLOW to dissolve as directed, Disp: , Rfl: nystatin (Mycostatin) ointment, Apply 1 Application topically twice a day., Disp: , Rfl: omeprazole (PriLOSEC) [address] capsule, Take 1 capsule (40 mg) by mouth., Disp: , Rfl: ondansetron (Zofran) 8 mg tablet, take 1 tablet by mouth once daily if needed for nausea Orally, Disp: , Rfl: propranolol (Inderal) 10 mg tablet, , Disp: , Rfl: tiZANidine (Zanaflex) 2 mg tablet, 1/2-1 tablet as needed Orally 2 times a day as needed for 30 days, Disp: , Rfl: triamcinolone (Kenalog) 0.1 % cream, Twice daily to affected areas for 3-4 weeks, then weekends only. Repeat every few months for flares., Disp: 453 g, Rfl: 3 Ubrelvy 50 mg tablet, once every 24 hours., Disp: , Rfl: VistariL 25 mg capsule, once every 24 hours., Disp: , Rfl: Objective Well appearing patient in no apparent distress; mood and affect are within normal limits. A focused skin examination was performed. All findings within normal limits unless otherwise noted below. Assessment/Plan 1. Psoriasis Skin clear on exam, doing well on Cosentyx. PASI 95, slight flare on face - Psoriasis is a common, noncontagious condition that can present in a variety of ways in the skin. The subtypes of this condition include plaque, inverse (or skin fold), guttate, erythrodermic, and pustular psoriasis. Plaque psoriasis, which represents approximately 85% of psoriasis cases, is a lifelong skin condition that affects about 2%-3% of the population worldwide. Plaque psoriasis skin lesions are typically red and raised with overlying scale. There may be papules (small, raised bumps) or plaques (larger, raised skin lesions that are bigger than a thumbnail), or both. People with plaque psoriasis typically have thickened, white scaly patches on their skin. - While the exact cause of psoriasis is unknown, this condition is the result of an overactive immune system that attacks the skin and other organs of the body. Psoriasis is very common in some families, suggesting a likely genetic component contributing to this disease, but it can also occur in individuals with no family history of psoriasis. Psoriasis can be triggered by certain environmental causes, such as emotional stress, , injury to the skin, bacterial skin infections such as a streptococcal infection (strep), smoking or alcohol consumption, and ingesting certain medications. - Because plaque psoriasis is a lifelong, chronic condition that currently has no cure, the goal of treatment is to decrease the number of skin lesions and reduce symptoms such as itching and pain. Most beneficial treatments for plaque psoriasis work in part due to their ability to alleviate the body's abnormal immune attack of the skin and help prevent the excessive buildup of skin cells or flakes. - Bathe daily to help soften scales and moisten the skin. Avoid harsh soaps and scrubbing the skin as these may worsen psoriasis. Moisturizing soaps and soap substitutes, such as unscented Dove Sensitive Skin Beauty Bar, Vanicream Cleansing Bar, and CeraVe Psoriasis Cleanser, are milder products for the skin. - The application of moisturizers after water exposure or bathing may be helpful. Heavier oil-based moisturizers help to retain water in the skin better than water-based moisturizers. Thicker moisturizers such as petroleum jelly (Vaseline), Aquaphor Healing Ointment, - Eucerin Original Healing Cream, Vanicream, Aveeno Moisturizing Cream, CeraVe Healing Ointment, or CeraVe Moisturizing Cream can be applied to damp skin daily after bathing. Use cream and ointments rather than lotions because lotions can dry out the skin. - Apply cghe-ylw-twjsrra hydrocortisone cream or ointment (0.5% or 1%) twice daily for 2-3 weeks at a time to help reduce itch and irritation. Stronger topical steroids are typically required for thicker psoriasis plaques. Long-term use of topical steroids should include periodic times of no treatment each month to avoid thinning of the skin. - Use of products with salicylic acid (shampoos, cleansers, and ointments), such as Neutrogena T/Sachin, can help soften and remove thick psoriasis scale in the scalp. - Small doses of natural sunlight may be helpful, such as 10-15 minutes approximately 2 or 3 times per week. Avoid too much sun; however, and protect your healthy skin from excessive sun exposure to help prevent premature aging of the skin and skin cancers. - Follow a healthy diet to maintain an ideal weight. (Being overweight may make plaque psoriasis worse.) Patient Support Resources - The National Psoriasis Foundation (https://www.psoriasis.org/) is a useful resource for patients and health professionals that has additional information regarding psoriasis and the various available treatments. The National Psoriasis Foundation website includes access to psoriasis-related articles, psoriasis research, a directory of health patient care assistant with an expertise in psoriasis, and opportunities for patients to volunteer or get involved in upcoming events. Plan - Continue Cosentyx as prescribed. Please call me if you flare. - Labs ordered; Tspot - For breakthrough rash, start hydrocortisone cream, use as directed. - Discussed risks, benefits, and side effects of medications. Related Procedures T-Spot TB Related Medications hydrocortisone 2.5 % cream Thin coat to affected skin twice daily for 3-4 weeks as needed. 2. Other mcc (current) drug therapy Related Procedures T-Spot TB Follow up in 12 months for psoriasis. Please call me if there are any changes or development of concerning symptoms (lesion/skin condition is changing, bleeding, enlarging, or worsening). documented in this encounter [facility] Work Phone: 06-12-2024 [place] [address] HEALTH INFORMATION MANAGEMENT PROCEDURE REPORT : [id number] Signed Patient: NIVIA HERMOSILLO Acct:[id number] MRUN: M [id number] : 1975 Sex: F Loc: 3OP ADM Date: Room/Bed: DISC Date: Procedure - PROCEDURES PERFORMED colonoscopy PROCEDURE NOTE: Pt was taken to endoscopy room and laid in left lateral decubitus position. After sedation was administered, digital rectal exam was done and only showed somewhat weak pelvic tone. The YOVANI was otherwise normal without induration, fissures, abscesses, or complicated/bleeding hemorrhoids. The Olympus endoscope was then inserted in rectum and maneuvered towards the cecum. This was done without difficulty. The prep was good and the mucosa was well visualized with moderate irrigation. The cecum was identified by the ileocecal valve, palpation, and photodocumentation. The terminal ileum appeared normal. The endoscope was then removed with careful mucosal examination for greater than 6 minutes. There were no polyps, diverticula, evidence of acute inflammation, bleeding, or any other colon pathology. Retroflexion was performed in the rectum and revealed small sized uncomplicated internal hemorrhoids. The scope was then removed. 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 banana Allergy (Verified 06/12/24 08:49) UNKNOWN butalbital [From Fioricet] Allergy (Verified 06/12/24 08:49) BAD HEADACHE hydrocodone Allergy (Verified 06/12/24 08:49) UNKNOWN ketorolac [From Toradol] Allergy (Verified 06/12/24 08:49) UNKNOWN macadamia nut oil Allergy (Verified 06/12/24 08:49) UNKNOWN oats Allergy (Verified 06/12/24 08:49) UNKNOWN onion Allergy (Verified 06/12/24 08:49) UNKNOWN peanut oil Allergy (Verified 06/12/24 08:49) UNKNOWN Yeast Allergy (Verified 06/12/24 08:49) GI PROBLEMS cephalexin [From Keflex] Adverse Reaction (Verified 06/12/24 08:49) INTESTINAL PROBLEMS guaifenesin Adverse Reaction (Verified 06/12/24 08:49) INTESTINAL PROBLEMS latex Adverse Reaction (Verified 06/12/24 08:49) Skin Rash - Hives loose stools CORN OIL Allergy (Uncoded 06/11/24 13:40) UNKNOWN Hydrocodone-Guaifenesin Allergy (Uncoded 06/11/24 13:40) UNKNOWN Nuts Other Than Peanuts Allergy (Uncoded 06/11/24 13:40) UNKNOWN ROXANOL Allergy (Uncoded 06/11/24 13:40) UNKNOWN WHEAT BRAN Allergy (Uncoded 06/11/24 13:40) UNKNOWN Condition: Good IMPRESSION: normal colonoscopy. EBL: 0ml Specimen: none FOLLOW-UP: As Needed Follow up colonoscopy recommendation: 10 Years Electronically Generated By: CLARISSA FISH MD Generated Date/Time: 06/12/24 1129 Electronically Signed By: 06/12/24 1132 Co Signed Electronically By: Co Signed Date/Time: CC: BESSIE KIRK DO; CLARISSA FISH MD [facility] 05-29-[address] [address] HEALTH INFORMATION MANAGEMENT PROCEDURE REPORT : [id number] Signed Patient: NIVIA HERMOSILLO Acct:[id number] MRUN: M [id number] : 1975 Sex: F Loc: 3OP ADM Date: Room/Bed: DISC Date: Procedure - PROCEDURES PERFORMED incomplete colonoscopy to proximal descending colon PROCEDURE NOTE: Pt was taken to endoscopy room and laid in left lateral decubitus position. After sedation was administered, digital rectal exam was performed and was normal, except decreased pelvic tone. She had no induration, fissures, abscesses, or complicated/bleeding hemorrhoids. The Olympus endoscope was then inserted in rectum and maneuvered towards the cecum. The prep was inadequate with copious brown liquid stool with fecal particulate throughout the entire examinaed colon. I was only able to get to the proximal descending colon despite prolonged suctioning and washing out the colon. The colonoscopy was aborted at this point. The colon did appear fairly dilated. The scope was then removed. The patient tolerated the procedure well COMPLICATIONS: none Hot biopsy forceps: NO Biopsy forceps: NO Snare: NO Needle Injection: NO DATE OF SERVICE: 05/29/24 SURGEON: CLARISSA FISH REGULATORY TECHNICIAN: none ENVIRONMENTAL FIELD TEAM MEMBER: PHILIP CANAS TYPE OF ANESTHESIA: Conscious Sedation Preoperative Diagnosis: average risk colon cancer screening Postoperative Diagnosis: same Allergies/Adverse Reactions: tree nut Allergy (Severe, Verified 05/27/24 16:12) Shock-Unconsciousness adhesive tape Allergy (Verified 05/29/24 12:29) Skin Rash - Hives banana Allergy (Verified 05/29/24 12:29) UNKNOWN butalbital [From Fioricet] Allergy (Verified 05/29/24 12:29) BAD HEADACHE hydrocodone Allergy (Verified 05/29/24 12:29) UNKNOWN ketorolac [From Toradol] Allergy (Verified 05/29/24 12:29) UNKNOWN macadamia nut oil Allergy (Verified 05/29/24 12:29) UNKNOWN oats Allergy (Verified 05/29/24 12:29) UNKNOWN onion Allergy (Verified 05/29/24 12:29) UNKNOWN peanut oil Allergy (Verified 05/29/24 12:29) UNKNOWN Yeast Allergy (Verified 05/29/24 12:29) GI PROBLEMS cephalexin [From Keflex] Adverse Reaction (Verified 05/29/24 12:29) INTESTINAL PROBLEMS guaifenesin Adverse Reaction (Verified 05/29/24 12:29) INTESTINAL PROBLEMS latex Adverse Reaction (Verified 05/29/24 12:29) Skin Rash - Hives loose stools CORN OIL Allergy (Uncoded 05/29/24 12:29) UNKNOWN Hydrocodone-Guaifenesin Allergy (Uncoded 05/29/24 12:29) UNKNOWN Nuts Other Than Peanuts Allergy (Uncoded 05/29/24 12:29) UNKNOWN ROXANOL Allergy (Uncoded 05/29/24 12:29) UNKNOWN WHEAT BRAN Allergy (Uncoded 05/29/24 12:29) UNKNOWN IMPRESSION: incomplete colonoscopy due to unacceptable prep EBL: 0ml Specimen: none PLAN: plan for repeat colonoscopy in upcoming days. Electronically Generated By: CLARISSA FISH MD Generated Date/Time: 05/29/24 1451 Electronically Signed By: 05/29/24 4455 Co Signed Electronically By: Co Signed Date/Time: CC: BESSIE KIRK DO; CLARISSA FISH MD [facility] 12-31-2023 Note Addended by: SUNITHA ORTEGA on: 12/31/2023 04:25 PM Modules accepted: Orders [facility] 12-31-2023 Miscellaneous Notes Addended by: SUNITHA ALEXANDER on: 12/31/19 04:25 PM Modules accepted: Orders Order attached to a different pharmacy Sunitha Alexander MA Patient left message stating that she needs a refill on her gabapentin sent to [facility]. documented in this encounter [facility] 12-31-2023 Telephone encounter Note Formatting of this note might be differe nt from the original. Order attached to a different pharmacy Sunitha Alexander MA [facility] 12-31-2023 Telephone encounter Note Formatting of this note might be differe nt from the original. Patient left message stating that she needs a refill on her gabapentin sent to [facility]. [facility] 10-04-2023 History of Present illness Narrative Formatting of this note is different fro m the original. Subjective Nivia Hermosillo is a 48 y.o. female who presents for the following: Psoriasis (PSO follow-up. Overall doing well on Cosetnyx, most recent injection was last week. Stable, denies flares. Needs tspot.). Review of Systems: No other skin or systemic complaints other than what is documented elsewhere in the note. The following portions of the chart were reviewed this encounter and updated as appropriate: Skin Cancer History No skin cancer on file. Specialty Problems None Objective Well appearing patient in no apparent distress; mood and affect are within normal limits. A focused skin examination was performed. All findings within normal limits unless otherwise noted below. Assessment/Plan 1. Rash and other nonspecific skin eruption Related Medications triamcinolone (Kenalog) 0.1 % cream Twice daily to affected areas for 3-4 weeks, then weekends only. Repeat every few months for flares. 2. Psoriasis Skin clear on exam, doing well on Cosentyx. PASI 100 - Psoriasis is a common, noncontagious condition that can present in a variety of ways in the skin. The subtypes of this condition include plaque, inverse (or skin fold), guttate, erythrodermic, and pustular psoriasis. Plaque psoriasis, which represents approximately 85% of psoriasis cases, is a lifelong skin condition that affects about 2%-3% of the population worldwide. Plaque psoriasis skin lesions are typically red and raised with overlying scale. There may be papules (small, raised bumps) or plaques (larger, raised skin lesions that are bigger than a thumbnail), or both. People with plaque psoriasis typically have thickened, white scaly patches on their skin. - While the exact cause of psoriasis is unknown, this condition is the result of an overactive immune system that attacks the skin and other organs of the body. Psoriasis is very common in some families, suggesting a likely genetic component contributing to this disease, but it can also occur in individuals with no family history of psoriasis. Psoriasis can be triggered by certain environmental causes, such as emotional stress, , injury to the skin, bacterial skin infections such as a streptococcal infection (strep), smoking or alcohol consumption, and ingesting certain medications. - Because plaque psoriasis is a lifelong, chronic condition that currently has no cure, the goal of treatment is to decrease the number of skin lesions and reduce symptoms such as itching and pain. Most beneficial treatments for plaque psoriasis work in part due to their ability to alleviate the body's abnormal immune attack of the skin and help prevent the excessive buildup of skin cells or flakes. - Bathe daily to help soften scales and moisten the skin. Avoid harsh soaps and scrubbing the skin as these may worsen psoriasis. Moisturizing soaps and soap substitutes, such as unscented Dove Sensitive Skin Beauty Bar, Vanicream Cleansing Bar, and CeraVe Psoriasis Cleanser, are milder products for the skin. - The application of moisturizers after water exposure or bathing may be helpful. Heavier oil-based moisturizers help to retain water in the skin better than water-based moisturizers. Thicker moisturizers such as petroleum jelly (Vaseline), Aquaphor Healing Ointment, - Eucerin Original Healing Cream, Vanicream, Aveeno Moisturizing Cream, CeraVe Healing Ointment, or CeraVe Moisturizing Cream can be applied to damp skin daily after bathing. Use cream and ointments rather than lotions because lotions can dry out the skin. - Apply uohp-gsj-utbrpzj hydrocortisone cream or ointment (0.5% or 1%) twice daily for 2-3 weeks at a time to help reduce itch and irritation. Stronger topical steroids are typically required for thicker psoriasis plaques. Long-term use of topical steroids should include periodic times of no treatment each month to avoid thinning of the skin. - Use of products with salicylic acid (shampoos, cleansers, and ointments), such as Neutrogena T/Sachin, can help soften and remove thick psoriasis scale in the scalp. - Small doses of natural sunlight may be helpful, such as 10-15 minutes approximately 2 or 3 times per week. Avoid too much sun; however, and protect your healthy skin from excessive sun exposure to help prevent premature aging of the skin and skin cancers. - Follow a healthy diet to maintain an ideal weight. (Being overweight may make plaque psoriasis worse.) Patient Support Resources - The National Psoriasis Foundation (https://www.psoriasis.org/) is a useful resource for patients and health professionals that has additional information regarding psoriasis and the various available treatments. The National Psoriasis Foundation website includes access to psoriasis-related articles, psoriasis research, a directory of health patient care assistant with an expertise in psoriasis, and opportunities for patients to volunteer or get involved in upcoming events. Plan - Continue Cosentyx as prescribed. Please call me if you flare. - Labs ordered; Tspot - Discussed risks, benefits, and side effects of medications. Related Medications secukinumab (Cosentyx Pen, 2 Pens,) 150 mg/mL self-injector pen INJECT 300 (2 PENS) DIRECTED UNDER THE SKIN EVERY 4 WEEKS. documented in this encounter [facility] Work Phone: 10-01-2023 Instructions Sunitha Alexander MA - 10/01/2023 11:53 AM EDT ASSESSMENT/PLAN: Neuropathy - ICD9: 355.9, ICD10: G62.9 Worsened following gastric bypass surgery in 2017. 1.) Patient will continue on Gabapentin 100 mg, 1 capsule three times daily. We will refill. 2.) No further testing is indicated at this time. 3.) Follow up in 1 year. documented in this encounter [facility] 10-01-2023 History of Present illness Narrative Formatting of this note is different fro m the original. Referring Provider: No ref. 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 She is a right handed, single woman. She resides with her parents, her daughter, brother, and niece. Patient is independent in her personal care as well as caring for her mother. 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 She does not smoke cigarettes and drinks very little alcohol but does use medical marijuana up to three times daily. She had gastric bypass in 2017. She denies having a history of alcohol abuse. She follows with a counselor for treatment of depression. Patient is taking Gabapentin 100 mg, 1 capsule three times daily with no medication side effects. She says that she does not always get the third dosage but that she has been trying to take it in the morning. Patient states that she had neuropathy prior to having gastric bypass in 2017 but that it did worsen following surgery. She is pleased with how Gabapentin is managing her symptoms and would like to make no changes at this time. Sunitha Gannon MA, transcribing for Tanika Gonzalez MD. ALLERGIES Allergen Reactions Peanuts Anaphylaxis Esgic [Butalbital-A* Other: See Comments headache Hazelnut Anaphylaxis Keflex [Cephalexin] Vomiting Latex Other: See Comments Break out Macadamia Nut Oil Anaphylaxis Onion Other: See Comments Dehydrated onion - headaches Oxycodone Contraindication-Medical Surgical Vicodin [place] [[place]* Mental Status Change PAST MEDICAL HISTORY: PAST MEDICAL HISTORY Diagnosis Date Anxiety Fair control with cymbalta Asthma Atrial fibrillation (HCC) No further episodes Cholelithiasis Depression Dysmenorrhea month long bleeding GERD (gastroesophageal reflux disease) 2 years of therapy Migraines Neuropathy Feet and hands Pulmonary embolism (HCC) 2016 No preciptating event Urinary, incontinence, stress female VT (ventricular tachycardia) ([facility]) PAST SURGICAL HISTORY Procedure Laterality Date ABLATE HEART DYSRHYTHM 2008,2007 x2 SECTION HX 2001 LAPAROSCOP GASTRIC BYPASS 10/29/2017 REMOVAL GALLBLADDER 03/2020 FAMILY HISTORY Problem Relation Age of Onset other (hidradenitis) Father Cervical Cancer Mother Hypertension Mother Lipids Mother other (anxiety) Brother other (Blood clotting) Maternal Grandmother other (Blood clot) Paternal Aunt SOCIAL HISTORY: Tobacco Use: Quit 07/21/2001. Types: Cigarettes Alcohol Use: Yes (couple drinks a year) Drug Use: Yes (medical-twice daily) Employer And Job Title: No employer specified (CLINICAL CARE MANAGER) Years Of Education Completed: Not specified Marital Status: MEDICATIONS: Current Outpatient Medications Medication Sig DUPIXENT SYRINGE 300 mg/2 mL injection gabapentin (NEURONTIN) 100 mg capsule Take 1 capsule by mouth three times daily for 180 days. hydrOXYzine pamoate (VISTARIL) 25 mg capsule Take 25 mg by mouth. omeprazole (PRILOSEC) 40 mg capsule Take 1 capsule by mouth. Dlexfze-Ltyvdvvywucgb-Tdyynrjw 250-250-65 mg per tablet Take 1 tablet by mouth. COSENTYX PEN, 2 PENS, 150 mg/mL propranolol (INDERAL) 10 mg tablet ferrous sulfate 325 mg (65 mg iron) EC tablet Take 325 mg by mouth. omeprazole (PRILOSEC) 20 mg capsule amitriptyline (ELAVIL) 50 mg tablet 75 mg. Cyanocobalamin 1,000 mcg TbER Take 1 tablet by mouth once daily. hydrocortisone 2.5 % cream apply twice a day topically to affected areas on face for 2-3 weeks, then weekends only. Repeat every few months for flares hydrOXYzine pamoate (VISTARIL) 25 mg capsule 3 TIMES DAILY NEEDED PRN For Anxiety topiramate (TOPAMAX) 200 mg tablet Take 200 mg by mouth daily at bedtime. triamcinolone (KENALOG) 0.1 % lotion APPLY TWICE A DAY TO SCALP NEEDED FOR ITCHING/REDNESS ondansetron orally disintegrating (ZOFRAN ODT) 4 mg disintegrating tablet Take 1 tablet by mouth every 8 hours as needed. albuterol HFA (PROVENTIL HFA) 90 mcg/actuation inhaler Inhale 2 Puffs as instructed every 4 hours as needed (for shortness of breath and wheezing.). DULoxetine (CYMBALTA) 60 mg capsule Take 120 mg by mouth once daily. nystatin (MYCOSTATIN) ointment Apply 1 application to affected area twice daily. hydrOXYzine HCl (ATARAX) 25 mg tablet Take 25 mg by mouth four times daily as needed. HUMIRA PEN 40 mg/0.8 mL pnkt (Patient not taking: Reported on 09/15/2022) Aug Betamethasone Dipropionate (DIPROLENE) 0.05 % ointment apply to affected area twice a day as directed (AVOID FACE, GROIN, UNDERARMS) (Patient not taking: Reported on 09/15/2022) AIMOVIG AUTOINJECTOR, 2 PACK, 70 mg/mL AutoInjector (Patient not taking: Reported on 09/15/2022) folic acid 1 mg tablet 1 tablet daily by mouth except day you take methotrexate. (Patient not taking: Reported on 09/15/2022) naproxen (NAPROSYN) 500 mg tablet Take 500 mg by mouth twice daily as needed. (Patient not taking: Reported on 10/01/2023) oxyCODONE (ROXICODONE) 5 mg/5 mL oral solution 1 teaspoon(s) (5 mL) every six(6) hours as needed for pain, by mouth. Earliest Fill Date: 10/25/17 (Patient not taking: Reported on 09/15/2022) enoxaparin (LOVENOX) 40 mg/0.4 mL syrg Inject 0.4 mL subcutaneously twice daily. (Inject entire contents of one(1) syringe) (Patient not taking: Reported on 09/15/2022) famotidine (PEPCID) 20 mg tablet Take 1 tablet by mouth twice daily. (Patient not taking: Reported on 09/15/2022) scopolamine (TRANSDERM-SCOP) 1 mg over 3 days Apply 1 Patch as directed every 72 hours. (Patient not taking: Reported on 09/15/2022) methotrexate 2.5 mg tablet Take 15 mg by mouth once each week. (Patient not taking: Reported on 09/15/2022) topiramate (TOPAMAX) 100 mg tablet Take 2 nigthly (Patient not taking: Reported on 10/01/2023) prochlorperazine (COMPAZINE) 10 mg tablet Take 1 tablet by mouth every 8 hours as needed. (Patient not taking: Reported on 09/15/2022) Ketoconazole 1 % sham Apply 1 application to affected area. (Patient not taking: Reported on 10/01/2023) No current facility-administered medications for this visit. I have personally reviewed the patients past medical history including social, family, surgical, diagnostics, and medications./AB Review of Systems Constitutional: Negative for chills, fever and unexpected weight change. HENT: Negative for congestion, facial swelling, trouble swallowing and voice change. Eyes: Negative for visual disturbance. Respiratory: Negative for shortness of breath. Cardiovascular: Negative for chest pain. Gastrointestinal: Negative for diarrhea, nausea and vomiting. Musculoskeletal: Negative for gait problem and myalgias. Allergic/Immunologic: Negative. Negative for immunocompromised state. Neurological: Positive for numbness. Negative for dizziness, syncope and light-headedness. Psychiatric/Behavioral: Negative. Negative for hallucinations and self-injury. Vitals: BP 118/78 Pulse 72 Ht 167.6 cm (5' 6) Wt 90.7 kg (200 lb) LMP (LMP Unknown) BMI 32.28 kg/m PHYSICAL EXAM:: The physical exam findings are as follows: General General Appearance - Well groomed Orientation: Oriented to time, oriented to place, and oriented to person. Higher Cortical Function: Awake and alert. Language functions are intact. Patient names well and repeats well, spontaneous speech as well as comprehension is normal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 this encounter (statuses as of 11/29/2021) [facility] History of Past illness Narrative* Problem Noted Date Resolved Date Obesity, Class III, BMI >= 40 E66.01 11/02/2017 06/22/2018 Morbid obesity 10/12/2017 06/22/2018 Overview: Added automatically from request for surgery [id number] Morbid obesity due to excess calories 07/21/2016 06/22/2018 documented as of this encounter (statuses as of 12/01/2021) [facility] History of Past illness Narrative* Problem Noted Date Resolved Date Obesity, Class III, BMI >= 40 E66.01 11/02/2017 06/22/2018 Morbid obesity 10/12/2017 06/22/2018 Overview: Added automatically from request for surgery [id number] Morbid obesity due to excess calories 07/21/2016 06/22/2018 documented as of this encounter (statuses as of 07/07/2022) [facility] History of Past illness Narrative* Problem Noted Date Resolved Date Obesity, Class III, BMI >= 40 E66.01 11/02/2017 06/22/2018 Morbid obesity 10/12/2017 06/22/2018 Overview: Added automatically from request for surgery [id number] Morbid obesity due to excess calories 07/21/2016 06/22/2018 documented as of this encounter (statuses as of 09/16/2022) [facility] History of Past illness Narrative* Problem Noted Date Resolved Date Obesity, Class III, BMI >= 40 E66.01 11/02/2017 06/22/2018 Morbid obesity 10/12/2017 06/22/2018 Overview: Added automatically from request for surgery [id number] Morbid obesity due to excess calories 07/21/2016 06/22/2018 documented as of this encounter (statuses as of 09/23/2022) [facility]05-11-2018 History of Past illness Narrative* Problem Noted Date Resolved Date Obesity, Class III, BMI >= 40 E66.01 11/02/2017 06/22/2018 Morbid obesity 10/12/2017 06/22/2018 Overview: Added automatically from request for surgery [id number] Morbid obesity due to excess calories 07/21/2016 06/22/2018 documented as of this encounter (statuses as of 10/23/2022) [facility]-2018 History of Past illness Narrative* Problem Noted Date Resolved Date Obesity, Class III, BMI >= 40 E66.01 11/02/2017 06/22/2018 Morbid obesity 10/12/2017 06/22/2018 Overview: Added automatically from request for surgery [id number] Morbid obesity due to excess calories 07/21/2016 06/22/2018 documented as of this encounter (statuses as of 11/23/2022) [facility]2018 History of Past illness Narrative* Problem Noted Date Diagnosed Date Resolved Date Obesity, Class III, BMI >= 40 E66.01 11/02/2017 06/22/2018 Morbid obesity 10/12/2017 06/22/2018 Overview: Added automatically from request for surgery [id number] Morbid obesity due to excess calories 07/21/2016 06/22/2018 documented as of this encounter (statuses as of 03/07/2023) [facility] History of Past illness Narrative* Problem Noted Date Diagnosed Date Resolved Date Obesity, Class III, BMI >= 40 E66.01 11/02/2017 06/22/2018 Morbid obesity 10/12/2017 06/22/2018 Overview: Added automatically from request for surgery [id number] Morbid obesity due to excess calories 07/21/2016 06/22/2018 documented as of this encounter (statuses as of 03/24/2023) [facility] History of Past illness Narrative* Problem Noted Date Diagnosed Date Resolved Date Obesity, Class III, BMI >= 40 E66.01 11/02/2017 06/22/2018 Morbid obesity 10/12/2017 06/22/2018 Overview: Added automatically from request for surgery [id number] Morbid obesity due to excess calories 07/21/2016 06/22/2018 documented as of this encounter (statuses as of 10/01/2023) [facility] noteN/ADept. of Dermatology Evaluation note* Diagnosis Complete rotator cuff tear or rupture of left shoulder, not specified as traumatic- Primary Complete rupture of rotator cuff Preoperative testing Preoperative examination, unspecified [facility] Postmenopausal bleeding- Primary Thickened endometrium Nonspecific (abnormal) findings on radiological and other examination of genitourinary organs [facility]* Diagnosis Neuropathy- Primary Mononeuritis of unspecified site [facility]* Diagnosis Rash and other nonspecific skin eruption- Primary Psoriasis Other psoriasis documented in this encounter [facility] Work Phone: Evaluation note* Diagnosis Psoriasis- Primary Other psoriasis Other mcc (current) drug therapy documented in this encounter [facility] Work Phone: Evaluation noteNo assessment information available [facility] Work Phone: Evaluation note* Diagnosis Neck pain- Primary Cervicalgia [facility]* Diagnosis Radiculopathy of cervical spine- Primary Brachial neuritis or radiculitis nos Neck pain Cervicalgia documented in this encounter [facility] note* Diagnosis Radiculopathy of cervical spine- Primary Brachial neuritis or radiculitis nos Neck pain Cervicalgia documented in this encounter [facility] for referral (narrative)* Name Reason for referral NA NA Dept. of Dermatology Reason for referral (narrative)* Outpatient Procedure (Routine) - Pending Review Specialty Diagnoses / Procedures Referred By Contac t Referred To Contact [facility] Diagnoses Postmenopausal bleeding Thickened endometrium Procedures ENDOMETRIAL BIOPSY ENDOMETRIAL BX W/WO ENDOCERVIX BX W/O DILAT SPX Stacy Wirght APRN.CNP [address] [place] [address] [facility] [address] [facility] [place] [address] Referral ID Status Reason Start Date Expiration Date Visits Requested Visits Authorized [id number] Pending Review Auto-Generat ed Referral 09/15/2022 09/15/2023 1 1 [facility] for referral (narrative)No reason for [facility] Summary Purpose Family History No Family History Records Found Relationship Condition Age at Onset Recorded Date/T cirilo Unknown Family History?- Unknown December 08, 2016 8:05am Family History?- Unknown December 19, 2016 4:37am Advance Directives No Advanced Directives Records FoundDocuments on File Type Date Recorded Patient Microbial Specialist Expl anation Advance Directives and Living Will Power of Compressed Gas Tester Documents on File Type Date Recorded Patient Microbial Specialist Expl anation Advance Directives and Living Will Power of Compressed Gas Tester Documents on File Type Date Recorded Patient Microbial Specialist Expl anation Advance Directives and Living Will Advance Directives and Living Will 07/30/2019 10:57 AM 07/30/2019 - No AD Power of Compressed Gas Tester Latest Code Status on File Code Status Date Activated Date Inactivated Comments Full Code 07/30/2019 12:34 PM Full Code 07/30/2019 8:21 AM 07/30/2019 12:34 PM Documents on File Type Date Recorded Patient Microbial Specialist Expl anation Advance Directives and Living Will Advance Directives and Living Will 07/30/2019 10:57 AM 07/30/2019 - No AD Power of Compressed Gas Tester Latest Code Status on File Code Status Date Activated Date Inactivated Comments Full Code 07/30/2019 12:34 PM Full Code 07/30/2019 8:21 AM 07/30/2019 12:34 PM Latest Code Status on File Code Status Date Activated Date Inactivated Comments Full Code 07/30/2019 12:34 PM 07/30/2019 10:14 PM Documents on File Type Date Recorded Patient Microbial Specialist Expl anation Advance Directive(s) 10/29/2017 7:00 AM Advance Directive Response Recorded Date/ Time Living Will No October 07, 2024 10:43am Do you have a Healthcare Power of Compressed Gas Tester? No October 07, 2024 10:43am Reason for Referral Status Reason Specialty Diagnoses / Procedures Referred By Contact Referred To Contact [facility] Diagnoses Abnormal EKG Precordial chest pain Procedures Stress Test - Exercise (no imaging) Odalis River MD [address] [place] [address] [facility] [address] [place] [address] Status Reason Specialty Diagnoses / Procedures Referred By Contact Referred To Contact Incomplete [facility] Diagnoses Chest pain Procedures Lexiscan Myoview Stress Test CV STRS TST XERS&/OR RX CONT ECG TRCG ONLY MYOCARDIAL SPECT MULTIPLE STUDIES Lianne Copeland APRN DOOR PATCHER [address] [address] Status Reason Specialty Diagnoses / Procedures Referred By Contact Referred To Contact [facility] Diagnoses Chest pain Procedures Lexiscan Myoview Stress Test CV STRS TST XERS&/OR RX CONT ECG TRCG ONLY MYOCARDIAL SPECT MULTIPLE STUDIES Lianne Copeland APRN DOOR PATCHER [address] [address] [facility] [address] [place] [address] Status Reason Specialty Diagnoses / Procedures Referred By Contact Referred To Contact Incomplete Ankur Aldana, JACKELIN [address] [place] [address] Name Reason for referral NA NA Status Reason Specialty Diagnoses / Procedures Referre d By Contact Referred To Contact Incomplete Diagnoses Complete rotator cuff tear or rupture of left shoulder, not specified as traumatic Procedures Case Request Operating Room: Left shoulder arthroscopy rotator cuff repair, subacromial decompression and distal clavicle excision Juan Craft, WINNIE DOOR PATCHER [address] [facility] [place] [place] [address] History of Present Illness * Shaheen Mcdaniels ELECTRO PHYSIO COOKING APPLIANCE REPAIR TECHNICIAN - 06/04/2019 11:00 AM EST EST ( No Images ) completed for Dr. River by Cortney GIVENS. Pt denied CP. THR was achieved. Results pending Dr. River. Electronically signed by Shaheen Mcdaniels ELECTRO PHY[employer]O COOKING APPLIANCE REPAIR TECHNICIAN at 06/04/2019 10:42 AM EST documented in this encounter* Shaheen Mcdaniels ELECTRO [employer] COOKING APPLIANCE REPAIR TECHNICIAN - 07/28/2019 11:30 AM EST Lexiscan Stress Myoview completed for Dr. Pagan by Cortney Mcdaniels CCDAVID and hJony Salinas RN. Pt complained of 4/10 Jaw pain and mid sternal chest tightness with Lexiscan injection. Both jaw and chest pressure resolved within 4 mins. Nuclear images and results pending Dr. Pagan. Electronically signed by Shaheen Mcdaniels ELECT[employer] COOKING APPLIANCE REPAIR TECHNICIAN at 07/28/2019 12:51 PM EST documented in this encounter Assessments Diagnosis Abnormal EKG Nonspecific abnormal electrocardiogram (ECG) (EKG) Precordial chest pain Precordial pain Diagnosis Chest pain Chest pain, unspecified Diagnosis Chest pain Chest pain, unspecified Diagnosis Abnormal stress test Other nonspecific abnormal cardiovascular system function study Abnormal ECG Nonspecific abnormal electrocardiogram (ECG) (EKG) Atypical chest pain Other chest pain Diagnosis Chest pain, unspecified type Diagnosis Preoperative testing Preoperative examination, unspecified Hospital Course * Andrew Issa MD - 07/30/2019 1:59 PM EST Physician Discharge Summary Patient ID: Name: Nivia Abdul Date of : 1975 Age: 44 y.o. Admit date: 07/30/2019 Discharge date: 07/30/2019 Date of procedure: 07/30/2019 Final Diagnosis: Normal coronary arteries Secondary Diagnosis: Abnormal stress test Atypical chest pain History of PVC ablation and SVT ablation Obesity s/p gastric bypass surgery Complications: None Hospital Summary: The patient was brought in for outpatient left heart catheterization with possible PCI with Dr. Issa due to abnormal stress test and chest pain. The procedure was performed via the right radial approach. Angiographically, the patient demonstrates normal coronary arteries. The patient's left ventricular systolic function is normal. For this reason, a work-up non cardiac chest pain has been advised. The patient tolerated the procedure well. The patient is discharged to home in satisfactory condition on this date pending all discharge orders are completed per protocol. Follow up with Dr. River or cardiology [facility] will be in 10-14 days. Inpatient Consults: None Pertinent Cardiac Coating Machine Feeder Findings: Normal coronary arteries Procedures Done: Procedure(s) (LRB): LEFT HEART CATHETERIZATION (N/A) Physical Exam: Visit Vitals BP 104/58 Pulse 103 Temp 97.7 F (36.5 C) Resp 14 Ht 5' 8 (1.727 m) Wt 89.1 kg (196 lb 6.4 oz) LMP 07/30/2019 SpO2 100% BMI 29.86 kg/m Condition on Discharge: Stable Orders on Discharge/Follow-up Instructions: Discharge Medications CONTINUE these medications which have NOT CHANGED Aimovig (140 MG Dose) 70 MG/ML Soaj Dose: 1 Application 1 Application, Subcutaneous, EVERY 30 DAYS Generic drug: Erenumab-aooe amitriptyline 75 MG tablet Dose: 100 mg 100 mg, Oral, NIGHTLY Commonly known as: ELAVIL Biotin 5000 5 MG Caps Dose: 1 capsule 1 capsule, Oral Generic drug: Biotin Calcium carbonate-vitamin D 600-400 MG-UNIT per tablet Dose: 1 tablet 1 tablet, Oral, DAILY DULoxetine 60 MG capsule Dose: 60 mg 60 mg, Oral, DAILY Commonly known as: CYMBALTA ferrous sulfate 325 (65 Fe) MG EC tablet Dose: 325 mg 325 mg, Oral, 3 TIMES DAILY WITH MEALS Fluticasone propionate 50 MCG/ACT nasal spray Dose: 1 spray 1 spray, Nasal, DAILY Commonly known as: FLONASE Humira 40 MG/0.4ML Pskt Dose: 1 Adjustable Dose Pre-filled Pen Syringe 1 Adjustable Dose Pre-filled Pen Syringe, Subcutaneous, EVERY OTHER WEEK Generic drug: Adalimumab OMEPRAZOLE PO Dose: 20 mg 20 mg, Oral, DAILY prochlorperazine 10 MG tablet Dose: 10 mg 10 mg, Oral, EVERY 8 HOURS PRN Commonly known as: COMPAZINE thera vitamin Tabs tablet Dose: 1 tablet 1 tablet, Oral, DAILY topiramate 100 MG tablet Dose: 100 mg 100 mg, Oral, TWO TIMES A DAY Commonly known as: TOPAMAX Vistaril 25 MG capsule Dose: 25 mg 25 mg, Oral, 4 TIMES DAILY PRN Generic drug: hydrOXYzine vitamin B-12 250 MCG tablet Oral, DAILY Commonly known as: CYANOCOBALAMIN VITAMIN D-3 10 MCG (400 UNIT) Tabs Dose: 400 Units 400 Units, Oral, DAILY Disposition: Disposition (From admission, onward) Discharge patient Other than the standard discharge criteria, are there other criteria that need aydee met prior to discharge? No ONE TIME Disposition: Home or Self Care Follow up with: Dr. River or cardiology [facility] in 1-2 weeks. Follow up with PCP in 1-2 weeks. The patient has been seen and examined, and plan discussed with Dr. Issa Signed: Ankur Kiser HLV Date: 07/30/2019 Time: 1:59 PM Note reviewed and edited - Dr. Andrew Issa documented in this encounter Discharge Instructions * Instructions* Luci Herrera RN - 07/30/2019 TR Band: What to Expect at Home Your Recovery This care sheet gives you a general idea about how long it will take for you to recover. But each person recovers at a different pace. Follow the steps below to get better as quickly as possible. How can you care for yourself at home? Activity Do not do strenuous exercise and do not lift, pull, or push anything heavier than 5 lbs for 5 days.You can walk around the house and do light activity, such as cooking. You may shower 24 hours after the procedure. Pat the incision dry. Do not take a bath for 1 week orsubmerge your arm in water (e.g. Washing dishes), or until your doctor tells you it is okay. Do not bend your wrist deeply for the first couple of days. Be careful using your hand to get into and out of a chair or bed. If your doctor recommends it, get more exercise. Walking is a good choice. Bit by bit, increase theamount you walk every day. Try for at least 30 minutes on most days of the week. Diet Drink plenty of fluids to help your body flush out the dye. If you have kidney, heart, or liver disease and have to limit fluids, talk with your doctor before you increase the amount of fluids you drink. Keep eating a heart-healthy diet that has lots of fruits, vegetables, and whole grains. If you havenot been eating this way, talk to your doctor. You also may want to talk to a dietitian. This expert can help you to learn about healthy foods and plan meals. Medicines Your doctor will tell you if and when you can restart your medicines. He or she will also give you instructions about taking any new medicines. If you take blood thinners, such as warfarin (Coumadin), clopidogrel (Plavix), or aspirin, be sure to talk to your doctor. He or she will tell you if and when to start taking those medicines again. Make sure that you understand exactly what your doctor wants you to do.. Call your doctor if you think you are having a problem with your medicine. Care of the catheter site For 1 or 2 days, keep a bandage over the spot where the catheter was inserted. Change the bandage daily. Put ice or a cold pack on the area for 10 to 20 minutes at a time to help with soreness or swelling. Put a thin cloth between the ice and your skin. Follow-up care is a ray part of your treatment and safety. Be sure to make and go to all appointments, and call your doctor if you are having problems. It's also a good idea to know your test resultsand keep a list of the medicines you take. When should you call for help? Call 911 anytime you think you may need emergency care. For example, call if: You passed out (lost consciousness). You have severe trouble breathing. You have sudden chest pain and shortness of breath, or you cough up blood. You have symptoms of a heart attack, such as: Chest pain or pressure. Sweating. Shortness of breath. Nausea or vomiting. Pain that spreads from the chest to the neck, jaw, or one or both shoulders or arms. Dizziness or lightheadedness. A fast or uneven pulse. After calling 911, chew 1 adult-strength aspirin. Wait for an ambulance. Do not try to drive yourself. You have been diagnosed with angina, and you have angina symptoms that do not go away with rest or are not getting better within 5 minutes after you take one dose of nitroglycerin. Call your doctor now or seek immediate medical care if: You are bleeding from the area where the catheter was put in your artery or you have a fast-growing, painful lump at the catheter site. Hold direct pressure on the site and seek immediate medical help. You have signs of infection, such as: Increased pain, swelling, warmth, or redness. Red streaks leading from the catheter site. Pus draining from the catheter site. A fever. Your arm looks blue or feels cold, numb, or tingly. Watch closely for changes in your health, and be sure to contact your doctor if you have any problems. Where can you learn more? Go to https://www.[employer].net/patientEd. Enter Q672 in the search box to learn more about Percutaneous Coronary Intervention: What to Expect at Home. Current as of: July 21, 2015 Content Version: 11.0 2193-6074 [employer]. Care instructions adapted under license by your healthcare professional. If you have questions about a medical condition or this instruction, always ask your healthcare professional. [employer] disclaims any warranty or liability for your use of this information. Sedation for a Medical Procedure: Care Instructions Your Care Instructions For a minor procedure or surgery, you will get a sedative to help you relax. This drug will make you sleepy. It is usually given in a vein (by IV). It may be used with anesthesia. There are different types of anesthesia. You and your doctor or anesthesia specialist will work together to choose the best anesthesia for you. It is usually based on your health, the procedure, and your preference. Local anesthesia is a shot given to numb a small part of the body. Regional anesthesia is a shot that blocks pain to a larger area of the body. General anesthesia affects the brain and the whole body. You get it through a small tube placed in a vein (IV). Or you may breathe it in. You are unconscious and will not feel pain. You may get monitored anesthesia care (MAC). This means that an anesthesia specialist will care foryou during your surgery. He or she will make sure that you get only the level of anesthesia care you need to prevent pain for your specific case. If you had anesthesia, you may feel some pain and discomfort as it wears off. If you have pain, don't be afraid to say so. Pain medicine works better if you take it before the pain gets bad. Common side effects from sedation include: Feeling sleepy. (Your doctors and nurses will make sure you are not too sleepy to go home.) Nausea and vomiting. This usually does not last long. Feeling tired. Follow-up care is a ray part of your treatment and safety. Be sure to make and go to all appointments, and call your doctor if you are having problems. It's also a good idea to know your test resultsand keep a list of the medicines you take. How can you care for yourself at home? Activity Don't do anything for 24 hours that requires attention to detail. This includes going to work, making important decisions, or signing any legal documents. It takes time for the medicine effects to completely wear off. For your safety, you should not drive or operate any machinery that could be dangerous until the medicine wears off and you can think clearly and react easily. When you get home, it is important to rest until the anesthesia has worn off. Some people will feeldrowsy or dizzy for up to a few hours after leaving the hospital. Take your time and walk slowly. Sudden changes in position may also cause nausea. Rest when you feel tired. Getting enough sleep will help you recover. Diet You can eat your normal diet, unless your doctor gives you other instructions. If your stomach is upset, try clear liquids and bland, low-fat foods like plain toast or rice. Drink plenty of fluids (unless your doctor tells you not to). Don't drink alcohol for 24 hours. Medicines Be safe with medicines. Read and follow all instructions on the label. ? If the doctor gave you a prescription medicine for pain, take it as prescribed. ? If you are taking opioids for pain, it is very important to take them as prescribed. Opioids can easily be misused. Misuse can lead to opioid use disorder and even . Because of this, it is best to get off them as soon as possible. As soon as you don't need them, talk to your doctor about howto safely stop taking them. Also talk with your doctor about how to safely store and get rid of opioids. ? If you are not taking a prescription pain medicine, ask your doctor if you can take an oere-[id number]-[id number] medicine. If you think your pain medicine is making you sick to your stomach, you can try these things. ? Take your medicine after meals (unless your doctor has told you not to). ? Ask your doctor for a different pain medicine. When should you call for help? Call 911 anytime you think you may need emergency care. For example, call if: You have severe trouble breathing. You passed out (lost consciousness). Call your doctor now or seek immediate medical care if: You have trouble breathing. You have ongoing or worsening nausea or vomiting. You have a fever. You have a new or worse headache. The medicine is not wearing off and you can't think clearly. Watch closely for changes in your health, and be sure to contact your doctor if: You do not get better as expected. Where can you learn more? Go to https://www.[employer].net/patientEd Enter G817 in the search box to learn more about Sedation for a Medical Procedure: Care Instructions. Current as of: June 06, 2018 Content Version: 12.3 0580-9551 [employer]. Care instructions adapted under license by your healthcare professional. If you have questions about a medical condition or this instruction, always ask your healthcare professional. [employer] disclaims any warranty or liability for your use of this information. documented in this encounter* Instructions* Selin Foley APRN DOOR PATCHER - 08/22/2019 Please contact your wort extractor later today to try to get your appointment moved earlier. Please return if your chest pain worsens or you develop worsening symptoms. * Attachments The following attachments cannot be sent through Care Everywhere. * Chest Pain (Ukrainian Estonian) documented in this encounter Health Concerns Infection Onset Date Last Indicated Resolved Time COVID-19 Rule-Out 12/29/2020 12/29/2020 01/03/2021 6:19 AM EDT Infection Onset Date Last Indicated Resolved Time COVID-19 Rule-Out 12/01/2021 12/01/2021 12/01/2021 2:28 AM EDT Chief Complaint and Reason for Visit Chief Complaint Admit Date general October 07, 2024 9:5 5am Additional Source Comments INFORMATION SOURCE (unrecogn ized section and content) DATE CREATED AUTHOR 12/12/2017 [facility] DATE CREATED AUTHOR AUTHOR'S ORGANIZ ATION 12/24/2017 [facility] DATE CREATED AUTHOR AUTHOR'S ORGANIZ ATION 12/22/2018 [facility] DATE CREATED AUTHOR AUTHOR'S ORGANIZ ATION 08/14/2021 [facility] DATE CREATED AUTHOR AUTHOR'S ORGANIZ ATION 05/04/2022 [facility] DATE CREATED AUTHOR AUTHOR'S ORGANIZ ATION 09/27/2022 [facility] DATE CREATED AUTHOR AUTHOR'S ORGANIZ ATION 12/03/2022 [facility] DATE CREATED AUTHOR AUTHOR'S ORGANIZ ATION 01/07/2024 [facility] DATE CREATED AUTHOR AUTHOR'S ORGANIZ ATION 10/05/2024 [facility] DATE CREATED AUTHOR AUTHOR'S ORGANIZ ATION 10/06/2024 [facility] DATE CREATED AUTHOR AUTHOR'S ORGANIZ ATION 11/19/2024 [facility] DATE CREATED AUTHOR AUTHOR'S ORGANIZ ATION 12/23/2024 [facility] DATE CREATED AUTHOR AUTHOR'S ORGANIZ ATION 03/10/2025 [facility] DATE CREATED AUTHOR AUTHOR'S ORGANIZ ATION 03/15/2025 [facility] Reason for Visit (unrecogniz ed section and content) Reason Comments PT Discharge Specialty Diagnoses / Procedures Referred By Contac t Referred To Contact PHYSICAL THERAPY Diagnoses Cervical Radiculopathy Eval Procedures PHYSICAL THERAPY EVALUATION HIGH COMPLEX 45 MINS NEW RS [facility] [address] [place] [address] Karen [facility] Physical Therapy [address] [place] [address] Phone: tel: fax: Referral ID Status Reason Start Date Expiration Date V isits Requested Visits Authorized [id number] Authorized 07/26/2024 06/24/2025 8 8 Reason Comments Physical Therapy Status Reason Specialty Diagnoses / Procedures Referred By Contact Referred To Contact Closed Heart and Vascul ar Diagnostics Diagnoses Abnormal EKG Precordial chest pain Procedures Stress Test - Exercise (no imaging) Odalis River MD [address] [place] [address] [facility] [address] [place] [address] Reason Comments Other Status Reason Specialty Diagnoses / Procedures Referred By Contact Referred To Contact Closed Heart [facility] Vascul ar Diagnostics Diagnoses Chest pain Procedures Lexiscan Myoview Stress Test CV STRS TST XERS&/OR RX CONT ECG TRCG ONLY MYOCARDIAL SPECT MULTIPLE STUDIES Lianne Copeland APRN CNP [address] [place] [address] [facility] [address] [place] [address] Reason Comments Results Status Reason Specialty Diagnoses / Procedures Referre d By Contact Referred To Contact Procedures LEFT HEART CATH Reason Comments Information or Advice only I was just di scharged after a heart cath done by Dr Issa, my right hand is numb and my thumb won't move right. What do I do? 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 Reason Comments Appointment Reason Comments Numbness/Tingling Reason Comments Psoriasis PSO follow-up. Overa ll doing well on Cosetnyx, most recent injection was last week. Stable, denies flares. Needs tspot. Reason Comments Patient Question Reason Comments Psoriasis Reason Comments PT Eval Source Comments (unrecognize d section and content) In the event this informatio n is protected by the Federal Confidentiality of Alcohol and Drug Abuse Patient Records regulations: The Federal rules restrict any use of the information to criminally investigate or prosecute any alcohol or drug abuse patient.[facility] the event this information is protected by the Federal Confidentiality of Alcohol and Drug Abuse Patient Records regulations: The Federal rules restrict any use of the information to criminally investigate or prosecute any alcohol or drug abuse patient.[facility] the event this information is protected by the Federal Confidentiality of Alcohol and Drug Abuse Patient Records regulations: The Federal rules restrict any use of the information to criminally investigate or prosecute any alcohol or drug abuse patient.[facility] Hospital[facility] the event this information is protected by the Federal Confidentiality of Alcohol and Drug Abuse Patient Records regulations: The Federal rules restrict any use of the information to criminally investigate or prosecute any alcohol or drug abuse patient.[facility] Hospital[facility] the event this information is protected by the Federal Confidentiality of Alcohol and Drug Abuse Patient Records regulations: The Federal rules restrict any use of the information to criminally investigate or prosecute any alcohol or drug abuse patient.[facility] Hospital[facility] the event this information is protected by the Federal Confidentiality of Alcohol and Drug Abuse Patient Records regulations: The Federal rules restrict any use of the information to criminally investigate or prosecute any alcohol or drug abuse patient.[facility] Hospital[facility] the event this information is protected by the Federal Confidentiality of Alcohol and Drug Abuse Patient Records regulations: The Federal rules restrict any use of the information to criminally investigate or prosecute any alcohol or drug abuse patient.[facility] Hospital[facility] the event this information is protected by the Federal Confidentiality of Alcohol and Drug Abuse Patient Records regulations: The Federal rules restrict any use of the information to criminally investigate or prosecute any alcohol or drug abuse patient.[facility] Hospital[facility] the event this information is protected by the Federal Confidentiality of Alcohol and Drug Abuse Patient Records regulations: The Federal rules restrict any use of the information to criminally investigate or prosecute any alcohol or drug abuse patient.[facility] Hospital[facility] the event this information is protected by the Federal Confidentiality of Alcohol and Drug Abuse Patient Records regulations: The Federal rules restrict any use of the information to criminally investigate or prosecute any alcohol or drug abuse patient.[facility] Hospital[facility] the event this information is protected by the Federal Confidentiality of Alcohol and Drug Abuse Patient Records regulations: The Federal rules restrict any use of the information to criminally investigate or prosecute any alcohol or drug abuse patient.[facility] HospitalIn the event this information is protected by the Federal Confidentiality of Alcohol and Drug Abuse Patient Records regulations: The Federal rules restrict any use of the information to criminally investigate or prosecute any alcohol or drug abuse patient.[facility] HospitalIn the event this information is protected by the Federal Confidentiality of Alcohol and Drug Abuse Patient Records regulations: The Federal rules restrict any use of the information to criminally investigate or prosecute any alcohol or drug abuse patient.[facility] HospitalIn the event this information is protected by the Federal Confidentiality of Alcohol and Drug Abuse Patient Records regulations: The Federal rules restrict any use of the information to criminally investigate or prosecute any alcohol or drug abuse patient.[facility] HospitalIn the event this information is protected by the Federal Confidentiality of Alcohol and Drug Abuse Patient Records regulations: The Federal rules restrict any use of the information to criminally investigate or prosecute any alcohol or drug abuse patient.[facility] HospitalIn the event this information is protected by the Federal Confidentiality of Alcohol and Drug Abuse Patient Records regulations: The Federal rules restrict any use of the information to criminally investigate or prosecute any alcohol or drug abuse patient.[facility] HospitalIn the event this information is protected by the Federal Confidentiality of Alcohol and Drug Abuse Patient Records regulations: The Federal rules restrict any use of the information to criminally investigate or prosecute any alcohol or drug abuse patient.[facility] Care Teams (unrecognized sec tion and content) Importer Exporter Relationship Specialty Start Date End Date BrunoJuan aguilar PCP - General Family Practice 10/16/17 Importer Exporter Relationship Specialty Start Date End Date WayJuan aguilar PCP - General Family Practice 10/16/17 Importer Exporter Relationship Specialty Start Date End Date WayJuan aguilar PCP - General Family Medicine 10/16/17 Importer Exporter Relationship Specialty Start Date End Date WayJuan aguilar PCP - General Family Medicine 10/16/17 Bessie Kirk, DO [address] [place] [address] Referring Internal Medicine 09/07/22 Importer Exporter Relationship Specialty Start Date End Date WayJuan aguilar PCP - General Family Medicine 10/16/17 Bessie Kirk, DO [address] [place] [address] Referring Internal Medicine 09/07/22 Importer Exporter Relationship Specialty Start Date End Date WayJuan aguilar PCP - General Family Medicine 10/16/17 Bessie Kirk DO [address] [place] [address] Referring Internal Medicine 09/07/22 Importer Exporter Relationship Specialty Start Date End Date Juan Carpenter PCP - General Family Medicine 10/16/17 Bessie Kirk DO [address] [place] [address] Referring Internal Medicine 09/07/22 Importer Exporter Relationship Specialty Start Date End Date Juan Carpenter PCP - General Family Medicine 10/16/17 Bessie Kirk DO [address] [place] [address] Referring Internal Medicine 09/07/22 Importer Exporter Relationship Specialty Start Date End Date Juan Carpenter PCP - General Family Medicine 10/16/17 Bessie Kirk DO [address] [place] [address] Referring Internal Medicine 09/07/22 Importer Exporter Relationship Specialty Start Date End Date Bessie Kirk DO [address] [place] [address] PCP - General 10/04/23 Importer Exporter Relationship Specialty Start Date End Date Juan Carpenter PCP - General Family Medicine 10/16/17 Bessie Kirk DO [address] [place] [address] Referring Internal Medicine 09/07/22 Team Status: Inactive Member Role Status Dates Dr. Gene Peterson MD Emergency Provider Active Start: October 07, 2024 End: October 07, 2024 Importer Exporter Relationship Specialty Start Date End Date Juan Carpenter PCP - General Family Medicine 10/16/17 Bessie Kirk DO [address] [place] [address] Referring Internal Medicine 09/07/22 Importer Exporter Relationship Specialty Start Date End Date Juan Carpenter PCP - General Family Medicine 10/16/17 Bessie Kirk DO [address] [place] [address] Referring Internal Medicine 09/07/22 Goals (unrecognized section and content) Goals may be documented in a n alternate section FOR RECORDS PERTAINING TO PATIENTS WHO ARE OR HAVE BEEN ENROLLED IN A CHEMICAL DEPENDENCY/SUBSTANCEABUSE PROGRAM, SOME INFORMATION MAY BE OMITTED. This clinical summary was aggregated from multiple sources. Caution should be exercised in using it in the provision of clinical care. This summary normalizes information from multiple sources, and as a consequence, information in this document may materially change the coding, format and clinical context of patient data. In addition, data may be omitted in some cases. CLINICAL DECISIONS SHOULD BE BASED ON THE PRIMARY CLINICAL RECORDS. [employer] [facility]. provides no warranty or guarantee of the accuracy or completeness of information in this document.
--- NOTE | 2025-03-17 20:36 | EX.ED.VIS.EY ---
HPI History of Present Illness Chief Complaint: Eye Problem Informant: patient Onset/Context/Timing Onset: Month(s) (1 month left eye days right eye) Context: Sudden Onset Timing: Continuous Current Severity: Mild Maximum Severity: Severe Worsened by: Light Relieved by: Nothing Associated Symptoms Associated Symptoms - Eyes: Drainage, Pain, Photophobia and Redness; Negative for Burning, Crusting, Eyelid swelling, Foreign body sensation or Itching Visual Changes: left: Blurred vision History of injury: No Visual correction: None Narrative Narrative: Patient is a 50-year-old woman. She has seen Dr. Cameron in the past. She has not seen him in 2 years. She does not wear contacts. She presents because of left eye pain that started approximate month ago. She had redness. She has no history of glaucoma. There is no history of trauma. She does endorse some slight drainage and occasionally matting of her eyelashes. For the last 3 days she has had decreased vision out of her left eye. She is now complaining of pain in her right eye. There is no history of trauma. She denies fever, chills night sweats. She denies vomiting. She was seen at urgent care. She was sent because the practitioner that saw her felt that the left periorbital area was puffy and swollen. Prior similar symptoms: No Recent Illness/Hospitalization: No PFSH [facility] Medical History Neuropathy Migraines Pulmonary embolus Afib Home Medications ?Medication ?Instructions ?Recorded ?Last Taken ?Type hydroxyzine pamoate 25 mg capsule 25 mg PO TID PRN PRN Anxiety 10/20/16 12/01/16 History topiramate 100 mg tablet 150 mg PO DAILY 10/20/16 12/09/16 History omeprazole 20 mg capsule,delayed 20 mg PO DAILY 12/08/16 12/10/16 History release prochlorperazine maleate 10 mg 10 mg PO TID PRN PRN Nausea 12/08/16 12/04/16 History tablet (Compazine) acetaminophen 500 mg tablet 2 tab PO Q8H PRN Pain #1 TAB 12/11/16 Unknown Rx ibuprofen 200 mg tablet 2 - 3 mg (0.01 - 0.015 x 200 mg) 12/11/16 Unknown Rx PO Q6H PRN Pain #1 TAB oxycodone 5 mg tablet 5 mg PO Q6H PRN PRN Severe Pain 12/11/16 Unknown Rx () ##12 apixaban 5 mg tablet (Eliquis) 5 mg PO BID 12/18/16 Unknown History duloxetine 60 mg capsule,delayed 60 mg PO DAILY 12/18/16 Unknown History release mupirocin 2 % topical ointment 1 applic topical BID PRN skin 10/07/24 Unknown Rx infection #15 grams amitriptyline 50 mg tablet 50 mg PO QHS 03/17/25 Unknown History fexofenadine 180 mg tablet 180 mg PO DAILY 03/17/25 Unknown History Allergy/AdvReac Type Severity Reaction Status Date / Time fluoxetine HCl (From Prozac) Allergy Other Verified 03/17/25 17:26 tree nut Allergy Anaphylaxis Verified 03/17/25 17:26 acetaminophen (From Vicodin) AdvReac Other Verified 03/17/25 17:26 butalbital (From Fioricet) AdvReac Nausea Verified 03/17/25 17:26 caffeine (From Fioricet) AdvReac Nausea Verified 03/17/25 17:26 hydrocodone bitartrate (From AdvReac Other Verified 03/17/25 17:26 Vicodin) latex AdvReac Rash Verified 03/17/25 17:26 onion AdvReac Other Verified 03/17/25 17:26 Surgical History H/O gastric bypass Social History Smoking Status: Former smoker ROS ROS ED Constitutional Constitutional ED: Denies chills, fever(s), subjective or sweats Eyes Eyes: Reports change in vision left (Visual change started 3+ days ago.) ENT ENT ED: Denies ear pain, rhinorrhea or sore throat Cardiovascular Cardiovascular: Denies chest pain, palpitations or racing heartbeat Gastrointestinal Gastrointestinal: Denies nausea or vomiting Musculoskeletal Musculoskeletal: Denies arthralgias, back pain, myalgias or neck pain Integumentary Denies rash Neurologic Neurologic: Denies headache(s), paresthesias or weakness Hematologic/Lymphatic Hematologic/Lymphatic: Denies easy bleeding or easy bruising EXAM Physical Exam Const Vital Signs: 03/17/25 17:25 Temperature 97 F L Temperature Source Temporal Pulse Rate 75 Respiratory Rate 14 Blood Pressure 139/103 H Blood Pressure Mean 115 Pulse Ox 98 Oxygen Delivery Method Room Air Positive well nourished and well developed Constitutional Narrative: Patient is wearing sunglasses. She states the light bothers her eyes. General Appearance ED: well developed HEENT HEENT Narrative: There is no tenderness over the right or left temporal artery. atraumatic; Negative for tenderness Nose: Negative for external nose normal Eyes Eyes Narrative: There is no nystagmus. Both conjunctive are injected. There is no discharge noted. The sclera is injected on the left. Visual acuity is 20/30 right 20/100 left. Eyes were anesthetized with tetracaine and stained with fluorescein. There may be slight uptake on the left. There may be a slight flare on the left. What happened difficult seeing funduscopic exam because of equipment issues. Better. Intraocular pressure 9 bilaterally. Pressure was measured using Lawrence-Pen. There is no tenderness over the right or left temporal artery. Neck no lymphadenopathy, supple and no JVD Neck Narrative: There is no trismus. There is no TMJ tenderness. Resp normal respiratory effort Cardio regular rate and regular rhythm Extremity normal to inspection Neuro oriented x3 and CN's II-XII intact bilaterally Sensorium / Orientation: alert Psych Psych Narrative: Normal affect and mood Skin no wounds Skin Narrative: There are no herpetic lesions to suggest herpes varicella-zoster. Lesions: no lesions Rashes: no rashes MDM MDM MDM Narrative Medical decision making narrative: Visual acuity was assessed. Her vision improved after tetracaine. Suspect part of her visual disturbance was due to pain. Visual acuity was 20/30 right and 20/100 left. Intraocular pressure was 9 bilaterally. There may be some slight corneal irregularity on the left. There is no obvious uptake of fluorescein. I do not believe she has a an ulcer. Plan is ophthalmic antibiotic and she is to see Dr. Cameron at 8 AM and tomorrow Management Discussion w/another healthcare provider: [facility] [employer] (Spoke with Dr. Truman Bell who is on-call. He asked for the patient to present to the office at [address] Cameron will see her.) Treatment and Re-Evaluation Narrative: Ophthalmic antibiotic drops. Discharge Plan Triage Chief Complaint: Eye Problem ED Provider: Edwards,Wellington Dx/Rx/DC Orders Clinical Impression: Pain of both eyes, Conjunctivitis, Change in vision Instructions: ED Conjunctivitis, Nonspecific Prescriptions: No Action topiramate 100 MG tablet 150 mg PO DAILY Patient Comments: MIGRAINES hydroxyzine pamoate 25 MG capsule 25 mg PO TID PRN PRN (Reason: Anxiety) Patient Comments: ITCHING prochlorperazine maleate [Compazine] 10 MG tablet 10 mg PO TID PRN PRN (Reason: Nausea) Patient Comments: pt states she takes for nausea or migranes omeprazole 20 MG capsule 20 mg PO DAILY Patient Comments: ACID REFLUX ibuprofen 200 MG tablet 2 - 3 mg PO Q6H PRN (Reason: Pain) Qty: 1 0RF Patient Comments: pain Rx Instructions: up to 1200 mg/day acetaminophen 500 MG tablet 2 tab PO Q8H PRN (Reason: Pain) Qty: 1 0RF oxycodone 5 MG tablet 5 mg PO Q6H PRN PRN (Reason: Severe Pain (6-04/03)) Qty: 12 0RF Patient Comments: pain duloxetine 60 MG capsule 60 mg PO DAILY apixaban [Eliquis] 5 MG tablet 5 mg PO BID Patient Comments: BLOOD THINNER fexofenadine 180 mg tablet 180 mg PO DAILY amitriptyline 50 mg tablet 50 mg PO QHS mupirocin 2 % ointment 1 applic topical BID PRN (Reason: skin infection) Qty: 15 0RF Primary Care Provider: ABIMAEL KIRK Referrals: ABIMAEL KIRK [Other] Agapito Cameron MD [Med Staff - Active Staff, Opthamology] - 1 Day for another exam Activity Restrictions/Additional Instructions: Go to Dr. Cameron office at 8 AM. He will see you and examine you. Instill antibiotic drops every 1-2 hours while awake Print Language: Slovenian Disposition Disposition: Home, Self Care
[2025-03-17 20:44] VITALS: BP 151/81; PULSE 69; O2SAT 100
[2025-03-17 21:03] VITALS: BP 151/81; PULSE 69; RESP 18; TEMP 36.7; O2SAT 100
[2025-03-17] MEDS: Ciprofloxacin 0.3% 2.5ml Bottle 1 DRP EACH EYE (21:07)
== END 2025-03-17 21:08 | disposition home or self-care (01) ==
PROVIDERS: Emergency Provider Emergency Medicine; Visit Provider Emergency Medicine
DX: H10.9 Unspecified conjunctivitis (principal); I48.91 Unspecified atrial fibrillation; H53.8 Other visual disturbances; G62.9 Polyneuropathy, unspecified; G43.909 Migraine, unspecified, not intractable, without status migrainosus; Z86.711 Personal history of pulmonary embolism; Z79.01 Long term (current) use of anticoagulants; Z79.899 Other long term (current) drug therapy; Z87.891 Personal history of nicotine dependence
CPT/HCPCS: 99283